=== PATIENT | female | born 1965 | race Caucasian/White ===

== ENCOUNTER 2024-05-06 09:29 | Emergency (ER) | payer SELFPAY ==
--- NOTE | ~2024-05-06 | CT_ITS ---
EXAMINATION: CT abdomen pelvis wo con DATE: 05/06/2024 10:17 INDICATION: Left lower quadrant pain TECHNIQUE: Computed tomography (CT) of the abdomen and pelvis was performed without intravenous contr ast. The dose-length product was 249.22 mGy-cm. Automated exposure control and iterative reconstructi on technique were employed. COMPARISON: No prior studies for comparison. FINDINGS: Lung bases unremarkable. Heart size normal. Small pericardial effusion. No significant pleu ral effusion. The liver, spleen, pancreas, adrenal glands and kidneys are unremarkable. No abnormal p elvic masses or fluid collections. There is a small fat-containing umbilical hernia. Colonic divertic ulosis without evidence for diverticulitis. No abnormal pelvic masses or fluid collections. There is atherosclerosis of the aorta without aneurysm. Gallbladder is present. No lymphadenopathy. No abnorma l pelvic masses. No focal lytic or blastic lesions. IMPRESSION: 1. No acute abdominal abnormality. Reviewed, dictated and finalized at location B.
[2024-05-06 09:30] VITALS: BP 184/98; PULSE 116; RESP 20; TEMP 36.7; O2SAT 97
--- NOTE | 2024-05-06 09:35 | ED.ABDPAIN ---
HPI - Abdominal Pain General Chief Complaint: Abdominal Pain Stated Complaint: abdominal pain Time Seen by Provider: 05/06/24 09:34 Source: patient Mode of arrival: ambulatory Limitations: no limitations History of Present Illness HPI narrative: Patient is a 58-year-old female with left lower quadrant and mid abdomen pain for the past 4 days. She has associated nausea vomiting and diarrhea. Diarrhea has been 1 week. She said she had a fever of 102 at home. MD elicited complaint: abdominal pain Pertinent past history: other ( None) Onset (ago): day(s) (4) Pain Consistency: constant Location: LLQ Severity: moderate Pain scale (0-10): 8 Quality: sharp Radiation: none Migration to: no migration Exacerbating factors: nothing Relieving factors: nothing Context: confirms other ( none) Associated symptoms: nausea, vomiting, diarrhea and fever Related Data Patient : No Allergies Allergy/AdvReac Type Severity Reaction Status Date / Time No Known Allergies Allergy Verified 05/06/24 09:34 Review of Systems Review of Systems: All systems reviewed & are unremarkable except as noted in HPI and below Constitutional: Constitutional: Reports no additional constitutional complaints Eyes: Eyes: Reports no additional eye complaints ENT: Reports system reviewed and no additional complaints, except as documented Cardiovascular: Cardiovascular: Reports no additional cardiovascular complaints Respiratory: Respiratory: Reports no additional respiratory complaints Gastrointestinal: Gastrointestinal: Reports no additional gastrointestinal complaints Genitourinary: Genitourinary: Reports no additional female genitourinary complaints Musculoskeletal: Musculoskeletal: Reports no additional musculoskeletal complaints Integumentary/Breasts: Skin/Breast: Reports system reviewed and no additional complaints, except as docu Neurologic: Reports system reviewed and no additional complaints, except as documented Psychiatric: Psychiatric: Reports no additional psychiatric complaints Endocrine: Endocrine: Reports no additional endocrine complaints Hematologic/Lymphatic: Hematologic/Lymphatic: Reports no additional hematologic/lymphatic complaints Allergic/Immunologic: Allergic/Immunologic: Reports no additional allergic/immunologic complaints Exam Const: General: ill appearing Nutritional Appearance: well nourished Orientation/consciousness: patient oriented x3 Limitations: no limitations HENMT: Head: normal to inspection Ears: external ears normal Face/Nose/Sinus: Normal external nose present Eyes: Conjunctivae: conjunctivae normal Pupils: Equal, round and reactive pupils present EOM: EOMs intact bilaterally Neck: Neck: normal visual inspection Chest: Chest palpation & inspection: normal inspection of the chest Resp: Effort & Inspection: normal respiratory effort and not labored Auscultation: clear to auscultation bilaterally and no crackles Cardio: Rate: regular rate Rhythm: regular rhythm Heart sounds: no murmurs GI: Inspection: non-distended GI Palp: Yes Soft to palpation, Yes Tenderness to palpation present (GI) ( left lower quadrant and suprapubic region), Yes Guarding due to palpation present (GI), No Rigid due to palpation, No Hernia present, No Palpable mass present and Yes Rebound tenderness present Auscultation: bowels sounds not normal and Hypoactive bowel sounds present : General: Yes bladder normal to palpation Back/Spine/Pelvis: Back: no CVA tenderness Skin: General skin exam: normal color Rashes: no rashes Wounds: no wounds Neuro: General: patient oriented x3 Cranial nerves: Yes Nystagmus not present Speech: normal speech Gait exam (Neuro): Normal gait present Extrem: General: normal to inspection Psych: Mental Status: mental status grossly normal Affect: normal affect Attitude: cooperative Course Vital Signs Vital signs: Vital Signs Temperature 36.7 C 05/06/24 09:30 Pu
[2024-05-06] MEDS: ONDANSETRON INJ 4 MG/2 ML VIAL IV PUSH (09:59)
[2024-05-06] MEDS: MORPHINE SULFATE (*CRX) 2 MG/ML INJ IV PUSH (10:06)
[2024-05-06 10:12] LABS: Basophils Absolute Auto 0.06 K/mm3 (0.00-0.10); Basophils Percent Auto 0.6 % (0.0-1.0); Eosinophils Absolute Auto 0.11 K/mm3 (0.02-0.50); Eosinophils Percent Auto 1.1 % (1.0-6.0); Hematocrit 35.4 % (35.0-49.0); Hemoglobin 10.9 g/dL (12.0-15.0); Immature Granulocyte Absolute 0.05 K/mm3 (0.00-0.00); Immature Granulocyte Percent A 0.5 % (0.0-0.0); Lymphocytes Absolute Auto 1.69 K/mm3 (1.10-4.50); Lymphocytes Percent Auto 16.3 % (18.0-42.0); Mean Corpuscular HGB Conc 30.8 g/dL (32-36); Mean Corpuscular Hemoglobin 23.3 pg (27.0-31.0); Mean Corpuscular Volume 75.8 fL (78.0-102.0); Mean Platelet Volume 9.5 fl (9.2-11.8); Monocytes Absolute Auto 1.01 K/mm3 (0.10-0.90); Monocytes Percent Auto 9.7 % (2.0-11.0); Neutrophils Absolute Auto 7.48 K/mm3 (1.70-7.20); Neutrophils Percent Auto 71.8 % (50.0-70.0); Platelet Count Result 270 K/mm3 (150-420); Red Blood Count 4.67 M/mm3 (4.20-5.40); Red Cell Distribution Width 18.1 % (11.6-14.4); White Blood Count 10.4 K/mm3 (4.8-10.8)
[2024-05-06 10:12] LABS: Add Urine Microscopic? YES; Appearance Urine Cloudy (Clear); Bilirubin Urine 2+ (Negative); Blood Urine Negative (Negative); Color Urine Yellow (Yellow); Glucose Urine UA Negative (Negative); Ketones Urine 1+ (Negative); Leukocyte Esterase Ur Trace LEU/UL (Negative); Nitrate Urine Negative (Negative); Protein Urine 2+ (Negative); Specific Grav Ur >= 1.030 (1.010-1.020)
[2024-05-06] MEDS: SODIUM CHLORIDE 0.9% IV 1,000 ML 999 ML IV CONT (10:14)
[2024-05-06 10:21] LABS: Bacteria Urine 1+ /hpf; RBC Urine 0-2 /hpf (0-2); Squamous Epithelial Cell Urine Moderate /hpf (Few)
[2024-05-06 10:30] LABS: Partial Thromboplastin Time 31.6 Sec (23.9-30.70)
[2024-05-06 10:32] LABS: Alanine Aminotransferase 17 U/L (14-59); Albumin Level 2.7 g/dL (3.4-5.0); Alkaline Phosphatase 64 U/L (46-116); Anion Gap 14 mmol/L (4-12); Aspartate Amino Transferase 11 U/L (15-37); Bilirubin,Total 0.5 mg/dL (0.00-1.00); Blood Urea Nitrogen 18 mg/dL (7-18); Calcium 8.8 mg/dL (8.5-10.1); Carbon Dioxide 21 mmol/L (21-32); Chloride 100 mmol/L (98-108); Estimated CRCL calculation 37 ml/min; Estimated Glomerular Filt Rate 42; Glucose 158 mg/dL (70-99); Lipase 19 U/L (16-77); Osmolality Calculated 284 mOsm/kg (285-295); Potassium 3.9 mmol/L (3.5-5.1); Sodium 135 mmol/L (136-145); Total Protein 7.2 g/dL (6.4-8.2)
[2024-05-06 10:53] VITALS: BP 133/80; PULSE 85; RESP 18; O2SAT 97
[2024-05-06 11:11] VITALS: BP 139/93; PULSE 103; RESP 20; TEMP 37.1; O2SAT 99
--- NOTE | 2024-05-06 11:19 | PC.NURSE ---
Pt given d/ c instructions and ERP Dr Castaneda in to discuss CT findings and dx of UTI. Pt stating she still isn't feeling the best and that her lower abd has some pain. instructed by ERP about Rx for antibiotic for UTI. ERP sent Rx to pts pharmacy for pickup and pt instructed to take as soon as she gets it filled, Instructed on diet, rest and fluids and need for f/u care or return to ER if no improvement. Pt and spouse stated understanding.
== END 2024-05-06 11:18 | disposition home or self-care (01) ==
PROVIDERS: Emergency Provider Emergency Medicine
DX: N30.00 Acute cystitis without hematuria (principal)
CPT/HCPCS: 36415; 74176; 80053; 81001; 83690; 85025; 85610; 85730; 96361; 96374; 96375; 99284; J2270; J2405; J7030

== ENCOUNTER 2024-11-16 20:26 | Observation (INO) | payer OTHER, SELFPAY ==
[2024-11-16] VITALS (10 sets, daily range): BP systolic 137–146; BP diastolic 83–86; PULSE 95–118; RESP 14–21; TEMP 37.6; O2SAT 87–95
--- NOTE | ~2024-11-16 | CT_ITS ---
EXAM: CTA chest PE protocol - 11/17/2024 07:14 CDT History: 59 years old Female with CHEST PAIN. R/O PE. TECHNIQUE: CTA of the chest with contrast, according to pulmonary embolism protocol. Reformatted cor onal, sagittal, and 3-D MIP images were obtained. 100 cc of Optiray 350 were used for the study. Auto matic exposure control was used for this study. COMPARISON: 11/16/2024 FINDINGS: EXAM QUALITY: Adequate visualization of the pulmonary arteries to the lobar level. PULMONARY ARTERIAL VASCULATURE: Large filling defect in the left inferior lobar pulmonary artery comp atible with acute pulmonary embolism. VISUALIZED LOWER NECK: Thyroid gland appears normal. No supraclavicular lymphadenopathy. AIRWAYS: Patent centrally. LUNGS and PLEURA: Unchanged 2.3 x 1.7 cm cavitary lesion in the left apical lung. No focal consolidat ion or ground glass opacity.No pleural effusion. MEDIASTINUM and CORIN: Prominent subcarinal lymph node is again seen. Fluid-filled esophagus. HEART AND PERICARDIUM: Mild right heart strain. No pericardial effusion. VASCULATURE: Thoracic aorta and pulmonary arteries are normal in caliber. CHEST WALL: No supraclavicular or axillary lymphadenopathy. MUSCULOSKELETAL: Multilevel degenerative changes of the visualized spine. No suspicious osseous lesio ns. UPPER ABDOMEN: Small hiatal hernia. IMPRESSION: 1. Acute pulmonary embolism in the left inferior lobar pulmonary artery along with right heart strai n. 2. Fluid-filled esophagus. Aspiration precautions are recommended. 3. Cavitary lesion in the left apical lung. Short interval follow-up CT chest is recommended in 3 mo nths. These findings were communicated to Tanner Deleon MD by Dr. Jeane Huddleston, on 11/17/2024 07:46 CDT at w ho expressed understanding. Reviewed, dictated and finalized at location A. IMPRESSION: 1. Acute pulmonary embolism in the left inferior lobar pulmonary artery along with right heart strain. 2. Fluid-filled esophagus. Aspiration precautions are recommended. 3. Cavitary lesion in the left apical lung. Short interval follow-up CT chest is recommended in 3 months. These findings were communicated to Tanner Deleon MD by Dr. Jeane Huddleston, on 07/2025 07:46 CDT at who expressed understanding.
--- NOTE | ~2024-11-16 | CT_ITS ---
CT chest abdomen pelvis w con Ordering provider: Tanner Deleon MD History: 59 years Female with . left chest pain, left abdominal pain left flank pain X 4 HRS . Comparison: None. Technique: CT chest with IV contrast. CT abdomen and pelvis CT abdomen and pelvis with IV and with or al contrast. Radiation reduction technique utilized.The dose-length product was 741.03 mGy-cm. 100 mL Omnipaque 35 0 was given IV. FINDINGS: CHEST: --VISUALIZED THORACIC INLET: Normal. --MEDIASTINUM: Aorta/coronary arteries: Mild atheromatous disease. Heart/other: The heart is not enlarged. Trace of pericardial effusion. Lymph nodes: No mediastinal or hilar adenopathy. Subcarinal lymph node measuring 1.2 cm is noted. --LUNGS: Cavitary lesion is seen in the left apical area which measure 2.3 x 1.7 cm. Septations seen in this lesion. Left basilar atelectasis with minimal effusion. No pulmonary nodules or masses. No pn eumothorax. --MUSCULOSKELETAL: Soft tissues: The superficial soft tissues are normal. Bones: Age appropriate degenerative changes of the spine. No suspicious bony lytic or sclerotic lesio ns. ABDOMEN/PELVIS: --MUSCULOSKELETAL: Bones: Age appropriate degenerative changes of the spine. No suspicious bony lytic or sclerotic lesio ns. Sclerotic area seen in the right body and pedicle of L2. Sclerotic area also seen in the right si xth rib. Superficial soft tissues: Small fat-containing umbilical hernia. Otherwise, The superficial soft tiss ues are normal. --UPPER ABDOMINAL ORGANS: Liver: Normal. Gallbladder: Normal. Spleen: Normal. Stomach/duodenum: Sliding hiatus hernia. Pancreas: Normal. Adrenals: Normal. Kidneys: Normal. --PELVIC ORGANS: The bladder shows slightly thickened wall. No bladder stones. --BOWEL AND MESENTERY: Colon: No evidence of diverticulitis. Slightly thickened wall of the sigmoid colon which may indicate colitis. Normal appendix. Small Bowel: Normal. No obstruction. Peritoneum/mesentery: No free air or free fluid. No mesenteric lymphadenopathy. --RETROPERITONEUM: Mild atheromatous disease of the abdominal aorta. Left retroaortic renal vein is noted. No retroperitoneal lymphadenopathy. IMPRESSION: CHEST: 1. Cavitary lesion in the left apical area. Follow-up in 3 months is advised. 2. Left basilar atelectasis with minimal effusion. ABDOMEN/PELVIS: 1. No evidence of appendicitis, diverticulitis or intestinal obstruction. 2. Slightly thickened wall of the sigmoid colon which may indicate colitis. Clinical correlation and follow-up advised. 3. Sliding hiatus hernia. Reviewed, dictated and finalized at location A. IMPRESSION: CHEST: 1. Cavitary lesion in the left apical area. Follow-up in 3 months is advised. 2. Left basilar atelectasis with minimal effusion. ABDOMEN/PELVIS: 1. No evidence of appendicitis, diverticulitis or intestinal obstruction. 2. Slightly thickened wall of the sigmoid colon which may indicate colitis. Cl inical correlation and follow-up advised. 3. Sliding hiatus hernia.
--- NOTE | ~2024-11-16 | XR_ITS ---
EXAM/ PROCEDURE: XR shoulder LT min 2V - 11/17/2024 08:30 CDT HISTORY: 59 years old Female with Lt. shoulder pain, Limited ROM COMPARISON: None available TECHNIQUE: Two view(s) FINDINGS/ IMPRESSION: There are no fractures or dislocations.Joint spaces are within normal limits Reviewed, dictated and finalized at location A.
--- NOTE | ~2024-11-16 | CT_ITS ---
EXAM: CT brain wo con - 11/17/2024 08:30 CDT History: 59 years old Female with AMS COMPARISON: None available. PROCEDURE: CT of the head without contrast. Axial, sagittal and coronal reformatted planes were allan luated. Automatic exposure control was used for this study. FINDINGS: BRAIN PARENCHYMA: No acute hemorrhage. No mass effect or herniation. Nesbitt-white matter differentiatio n is maintained. Normal appearance of cortex. Intravenous contrast from prior examination is seen in the intracranial vessels. VENTRICLES/ EXTRA-AXIAL SPACES: No hydrocephalus or extra-axial fluid collection. EXTRACRANIAL STRUCTURES: Partial opacification of right mastoid air cells. Remaining visualized paran bradford sinuses and mastoid air cells are clear. No calvarial fracture seen. IMPRESSION: 1. No evidence for acute intracranial hemorrhage or calvarial fracture. 2. Partial opacification of right mastoid air cells. Correlate clinically to rule out acute mastoidi tis. Reviewed, dictated and finalized at location A. IMPRESSION: 1. No evidence for acute intracranial hemorrhage or calvarial fracture. 2. Partial opacification of right mastoid air cells. Correlate clinically to r ule out acute mastoiditis.
--- OUTSIDE RECORDS SUMMARY | 2024-11-16 20:31 | XMS_ITS | Clinical Summary ---
Author Organization [facility] Address [address] [place] [address] Care Team Providers Care Hospice Nurse Practitioner Name Role Phone Johnny Sapp MD Primary Care Provider [phone] Allergies No known active allergies Medications acetaminophen (TYLENOL) 500 MG tablet Take 2 tablets (1,000 mg total) by mouth every 6 (six) hours as needed for Pain or Fever. 50 tablet 9 Active traMADol 50 MG tablet Take 1 tablet (50 mg total) by mouth every 6 (six) hours as needed for Pain. 20 tablet 9 Active amLODIPine 10 MG tablet Take 1 tablet (10 mg total) by mouth in the evening if your blood pressure is greater than 150mmHg systolic 30 tablet 1 Active lisinopril 10 MG tablet Please take 1 tablet (10 mg) in the morning by mouth daily 30 tablet 1 Active Acetaminophen (TYLENOL ARTHRITIS PAIN OR) Take 2 tablets by mouth 2 (two) times daily. Active ibuprofen (MOTRIN) 200 MG tablet Take 1 tablet (200 mg total) by mouth 2 (two) times daily. Active cyclobenzaprine (FLEXERIL) 10 MG tablet Take 1 tablet (10 mg total) by mouth nightly. Active zinc sulfate (ZINCATE) 220 MG capsule Take 1 capsule (50 mg of elemental zinc total) by mouth daily. Active magnesium oxide (MAG-OX) 250 MG tablet Take 1 tablet (250 mg total) by mouth daily. Active potassium chloride CR (KLOR-CON) 8 MEQ tablet Take 1 tablet (8 mEq total) by mouth daily. Patient buys otc unsure of dose. Active Vitamin D3 (VITAMIN D) 50 mcg tablet Take 1 tablet (50 mcg total) by mouth daily. Active Apple Cider Vinegar 188 MG Cap Take 1 capsule by mouth daily. Active Probiotic Product (PROBIOTIC ACIDOPHILUS) Chew Tab Chew 1 chewable tablet by mouth daily. Takes 1 gummy daily Active omeprazole EC (PRILOSEC OTC) 20 MG tablet Take 1 tablet (20 mg total) by mouth daily. Pt unsure of dose but takes it from over the counter Active Active Problems Problem Noted Date Diagnosed Date Otitis media 08/07/2023 Social History Tobacco Use Types Packs/Day Years Used Date Smoking Tobacco: Never Smokeless Tobacco: Never Alcohol Use Standard Drinks/Week Comments No 0 (1 standard drink = 0.6 oz pur e alcohol) [facility] Utilities Answer Date Recorded In the past 12 months has [facility] [employer], [employer], or [employer] threatened to shut off services in your home? Patient declined 08/11/2023 Humiliation, Afraid, Rape, and Kick questionnair e Answer Date Recorded Within the last year, have y ou been afraid of your partner or ex-partner? Patient declined 08/11/2023 Within the last year, have y ou been humiliated or emotionally abused in other ways by your partner or ex-partner? Patient declined 08/11/2023 Within the last year, have y ou been kicked, hit, slapped, or otherwise physically hurt by your partner or ex-partner? Patient declined 08/11/2023 Within the last year, have y ou been raped or forced to have any kind of sexual activity by your partner or ex-partner? Patient declined 08/11/2023 AUDIT-C Answer Date Recorded Frequency of Alcohol Consumption Never 04/03/2019 Average Number of Drinks Not on file 019 Frequency of Binge Drinking Not on file 03/09 Overall Financial Resource Strain (CARDIA) Answe r Date Recorded How hard is it for you to pa y for the very basics like food, housing, medical care, and heating? Patient declined 08/11/2023 Hunger Vital Sign Answer Date Recorded Within the past 12 months, y ou worried that your food would run out before you got the money to buy more. Patient declined Within the past 12 months, t he food you bought just didn't last and you didn't have money to get more. Patient declined 11/2023 PRAPARE - Transportation Answer Date Re corded In the past 12 months, has l ack of transportation kept you from medical appointments or from getting medications? Patient declined 08/11/2023 In the past 12 months, has l ack of transportation kept you from meetings, work, or from getting things needed for daily living? Patient declined 08/11/2023 Housing Stability Vital Sign Answer Sharan e Recorded In the last 12 months, was t here a time when you were not able to pay the mortgage or rent on time? Patient declined 08/11/19 24 In the last 12 months, how many places have you lived? 1 08/11/2023 In the last 12 months, was t here a time when you did not have a steady place to sleep or slept in a retirement (including now)? 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 Pulse 83 08/12/2023 8:04 AM [employer]ER Temperature 37.1 C (98.8 F) 08/12/2023 8:04 AM K[employer] AS[employer]ER Respiratory Rate 16 08/12/2023 8:04 AM K[employer] ASSEM[employer]ER Oxygen Saturation 97% 08/12/2023 8:0 4 AM K[employer] ASSEM[employer]ER Inhaled Oxygen Concentration - - Weight 64.5 kg (142 lb 4.8 oz) 08/11/2023 5:00 AM K[employer]EN FOOD ASSEMBLER Height 154.9 cm (5' 0.98 ) 08/07/2023 3 :29 AM K[employer]EN FOOD ASSEMBLER Body Mass Index 26.9 08/07/2023 3:29 AM K[employer]EN [employer] ASSEMBLER Plan of Treatment Health Maintenance Due Date Last Done Comments Cervical Cancer Screening Pa p Smear (Age 30 to 64) Every 3 Years 1967 Colorectal Cancer Screening Colonoscopy (10 Years) 1967 Annual Physical 1970 Hepatitis C 1985 DTaP, Tdap and Td Vaccines ( 1 - Tdap) 1986 Hepatitis B Vaccines (1 of 3 - 19+ 3-dose series) 1986 Cervical Cancer Screening Pa p with HPV Testing (Age 30 to 64) Every 5 Years 1997 Cervical Cancer Screening with HPV 1997 Mammogram Screening 2007 Zoster Vaccines (1 of 2) 2017 COVID-19 Vaccine (1 - 2023-2 5 season) 2024 Pneumococcal Vaccine: Pediat rics (0 to 5 Years) and At-Risk Patients (6 to 64 Years) Aged Out 06/17/2015 No longer eligi ble based on patient's age to complete this topic Meningococcal B Vaccine Aged Out No l onger eligible based on patient's age to complete this topic Meningococcal Vaccine Aged Out No patria adamaris eligible based on patient's age to complete this topic RSV Immunizations Under 20 Months Aged Out No longer eligible based on patient's age to complete this topic Insurance [address] Advance Directives * Full Code (Latest Code Status on File) Date Activated Date Inactivated Comments 08/07/2023 2:01 AM 08/12/2023 4:04 PM Care Teams Hospice Nurse Practitioner Relationship Specialty Start Date End Date Johnny Sapp MD [address] [place] [address] PCP - General FAMILY PRACTICE 08/12/23
--- OUTSIDE RECORDS SUMMARY | 2024-11-16 20:31 | XMS_ITS | Encounter Summary ---
Author Organization [facility] Address [address] [place] [address] Care Team Providers Care Ordnance Equipment Worker Name Role Phone None, Provider Primary Care Provider Unavaila ble Johnny Sapp MD Primary Care Provider [phone] Encounter Details Date Type Department Care Team (Late st Contact Info) Description 10/22/2017 Abstract [facility] CONVERSION [address] [place] [address] , Generic Conversion, Social History Tobacco Use Types Packs/Day Years Used Date Smoking Tobacco: Never Assessed Comments Unknown Sex and Gender Information Value Date Recorded Sex Assigned at Not on file Legal Sex Female 4:54 PM CDT Gender Identity Not on file Sexual Orientation Not on file documented as of this encounter Plan of Treatment Not on file documented as of this encounter Visit Diagnoses Not on filedocumented in this encounter Care Teams Ordnance Equipment Worker Relationship Specialty Start Date End Date None, Provider, PCP - General 04/03/19 08/11/23 Johnny Sapp MD [address] [place] [id number] PCP - General FAMILY PRACTICE 08/12/23 documented as of this encounter
--- OUTSIDE RECORDS SUMMARY | 2024-11-16 20:31 | XMS_ITS | Encounter Summary ---
Author Organization [facility] Address [address] [place] [address] Care Team Providers Care Avid Editor Name Role Phone None, Provider Primary Care Provider Unavaila [facility] Johnny Sapp MD Primary Care Provider [phone] Encounter Details Date Type Department Care Team (Late st Contact Info) Description 08/27/2009 Abstract [facility] CONVERSION [address] [place] [address] , Generic Conversion, Social History Tobacco Use [...] on filedocumented in this encounter Care Teams Avid Editor Relationship Specialty Start Date End Date None, Provider, PCP - General 04/03/19 08/11/23 Johnny Sapp MD [address] [place] [id number] PCP - General FAMILY PRACTICE 08/12/23 documented as of this encounter
[2024-11-16 20:43] LABS: Glucose Point of Care 247 mg/dl (65-105)
--- NOTE | 2024-11-16 20:43 | ED_ITS ---
HPI - Abdominal Pain General Chief Complaint: Abdominal Pain Stated Complaint: abdominal pain Time Seen by Provider: 11/16/24 20:43 Source: patient and family Mode of arrival: ambulatory Limitations: clinical condition History of Present Illness HPI narrative: 59 years old white female came to the ED from home by ambulance with her and some was telling me that patient started having pain left chest left flank left back left abdomen to hour prior to arrival, the denied that the patient have any nausea, vomiting, diarrhea, constipation, fever or chills. History of CVA with right hemiplegia and aphasia May 2024. History of diabetes, hypertension, hyperlipidemia, COPD, patient does not smoke or drink, uses marijuana occasionally. No history of abdominal surgery. Related Data Home Medications ?Medication ?Instructions ?Recorded ?Confirmed ?Last Taken ?Type atorvastatin 80 mg tablet 80 mg PO DAILY 11/16/24 11/16/24 Unknown History baclofen 10 mg tablet 10 mg PO DAILY 11/16/24 11/16/24 Unknown History blood-glucose meter (OneTouch 11/16/24 11/16/24 Unknown History Verio Flex Meter) losartan 100 mg tablet 100 mg PO DAILY 11/16/24 11/16/24 Unknown History metformin 500 mg tablet 500 mg PO DAILY 11/16/24 11/16/24 Unknown History prednisone 10 mg tablet 10 mg PO DAILY 11/16/24 11/16/24 Unknown History umeclidinium 62.5 mcg-vilanterol 1 inh inhalation DAILY 11/16/24 11/16/24 Unknown History 25 mcg/actuation powdr for inhalation (Anoro Ellipta) Allergies Allergy/AdvReac Type Severity Reaction Status Date / Time No Known Allergies Allergy Verified 11/16/24 20:39 Review of Systems 2 Review of Systems: All systems reviewed & are unremarkable except as noted in HPI and below Exam 2 Narrative: General appearance: Well-developed, well-nourished , restless, looks in pain, aphasic, unable to tell me any details what is going on, and son at the bedside. Skin: Normal color Head: Normocephalic, nontraumatic Eyes: Clear conjunctiva ENT: Oropharynx normal, ears normal, nose normal Neck: Supple, nontender Chest and respiratory: Airway patent, no respiratory distress, no accessory muscle use, diffuse left chest tenderness, no bruises, no rash Heart: Regular rate/rhythm Abdomen: Diffuse tenderness left upper quadrant, left flank, no bruises, no rash difficult to evaluate patient is not cooperative Musculoskeletal: right hemiplegia Neurologic: Alert and oriented , right hemiplegia, aphasia Course Vital Signs Vital signs: Vital Signs Temperature 37.6 C H 11/16/24 20:32 Pulse Rate 109 H 11/16/24 20:32 Respiratory Rate 18 11/16/24 20:32 Blood Pressure 146/83 H 11/16/24 20:32 Pulse Oximetry 95 11/16/24 20:32 Oxygen Delivery Room Air 11/16/24 20:32 Temperature 37.6 C H 11/16/24 20:32 Pulse Rate 114 H 11/16/24 23:48 Respiratory Rate 14 11/16/24 23:48 Blood Pressure 137/86 11/16/24 23:48 Pulse Oximetry 94 11/16/24 23:48 Oxygen Delivery Room Air 11/16/24 20:32 Oxygen Flow Rate 2 11/16/24 23:48 MDM - Abdominal Pain MDM Narrative Medical decision making narrative: patient came from home with her family with probably left chest pain left back pain left flank pain left abdominal pain. Vital signs showing heart rate of 109, temperature 37.6? Physical examination showing restless patient, in pain, difficult to localize with that she hurt, probably chest, back, abdomen. Differential diagnosis include musculoskeletal, pulmonary embolism, pneumonia, diverticulitis, colitis, urinary tract infection, kidney stone, constipation , major depression secondary to stroke Blood workup today includes CBC, CMP, troponin,, blood culture, lactic acid showed WBC 12.9, CREATININE 1.1, GLUCOSE 283, LACTIC ACID 2.1, MAGNESIUM 1.5, C- REACTIVE PROTEIN 5.7, Respiratory panel showed Negative for COVID flu and RSV CT chest, abdomen and pelvis with IV contrast showed cavitary lesion in the left apical area. The family are aware of that lesion and has been under investigation. , possible colitis, sliding hiatal hernia. Urinalysis came back positive for nitrate. Patient pain at the left side of the chest left back left abdomen could be secondary to muscle strain/ sprain. secondary to compensation of right hemiplegia. Colitis is a possibility, urinary tract infection is a possibility. Patient pain is severe does not match with colitis or urinary tract infection, depression and anxiety could be another factor making patient pain worse than normal. Patient will be admitted to hospital, observation, start on Zosyn for colitis and urinary tract infection. Differential Diagnosis Differential diagnosis: Likely other ( As above) Lab Data Attestation: I reviewed the patient's lab results. 11/16/24 21:12 11/16/24 21:12 Labs: Lab Results 11/16/24 11/16/24 11/16/24 Range/Units 20:41 21:12 21:16 WBC 12.9 H (4.8-10.8) K/mm3 RBC 5.38 (4.20-5.40) M/mm3 Hgb 12.5 (12.0-15.0) g/dL Hct 41.8 (35.0-49.0) % MCV 77.7 L (78.0-102.0) fL MCH 23.2 L (27.0-31.0) pg MCHC 29.9 L (32-36) g/dL RDW 18.5 H (11.6-14.4) % Plt Count 263 (150-420) K/mm3 MPV 9.5 (9.2-11.8) fl Immature Gran % (Auto) 2.1 H (0.0-0.0) % Neut % (Auto) 63.8 (50.0-70.0) % Lymph % (Auto) 25.4 (18.0-42.0) % Moca % (Auto) 7.3 (2.0-11.0) % Eos % (Auto) 0.9 L (1.0-6.0) % Baso % (Auto) 0.5 (0.0-1.0) % Lymph # (Auto) 3.29 (1.10-4.50) K/mm3 Moca # (Auto) 0.95 H (0.10-0.90) K/mm3 Eos # (Auto) 0.11 (0.02-0.50) K/mm3 Baso # (Auto) 0.07 (0.00-0.10) K/mm3 Abs Immat Gran (auto) 0.27 H (0.00-0.00) K/mm3 Absolute Neuts (auto) 8.24 H (1.70-7.20) K/mm3 Absolute Nucleated RBC 0.00 (0.00-0.00) K/mm3 Nucleated RBC % 0.0 (0-0.0) % PT 10.2 (9.50-12.1) Seconds INR 0.9 APTT 25.1 (23.9-30.70) Sec Sodium 136 (136-145) mmol/L Potassium 4.2 (3.5-5.1) mmol/L Chloride 100 (98-108) mmol/L Carbon Dioxide 23 (21-32) mmol/L Anion Gap 13 H (4-12) mmol/L BUN 14 (7-18) mg/dL Creatinine 1.11 H (0.55-1.02) mg/dL Estim Creat Clear Calc 45 ml/min Estimated GFR 51 L (59 - ) Glucose 283 H (70-99) mg/dL POC Capillary Glucose 247 H (65-105) mg/dl Calculated Osmolality 292 (285-295) mOsm/kg Lactic Acid 2.1 H (0.4-2.0) mmol/L Calcium 8.8 (8.5-10.1) mg/dL Magnesium 1.5 L (1.8-2.4) mg/dL Total Bilirubin 0.4 (0.00-1.00) mg/dL AST 13 L (15-37) U/L ALT 23 (14-59) U/L Alkaline Phosphatase 78 (46-116) U/L Troponin I 5.7 (0.00-60.4) ng/L C-Reactive Protein 5.7 H (0.0-0.9) mg/dL Total Protein 7.0 (6.4-8.2) g/dL Albumin 2.9 L (3.4-5.0) g/dL Lipase 50 (16-77) U/L Urine Color (Yellow) Urine Appearance (Clear) Urine pH (5.0-8.0) Ur Specific Montague (1.010-1.020) Urine Protein (Negative) Urine Glucose (UA) (Negative) Urine Ketones (Negative) Ur Blood (Man) (Negative) Urine Nitrate (Negative) Urine Bilirubin (Negative) Urine Urobilinogen (0.2-1.0) mg/dL Leukocyte Esterase Rfl (Negative) OLGA/UL Influenza A (RT-PCR) Negative (Negative) Influenza B (RT-PCR) Negative (Negative) RSV (RT-PCR) Negative (Negative) SARS-CoV-2 RNA (RT-PCR) Negative (Negative) 11/16/24 11/16/24 Range/Units 23:04 23:30 WBC (4.8-10.8) K/mm3 RBC (4.20-5.40) M/mm3 Hgb (12.0-15.0) g/dL Hct (35.0-49.0) % MCV (78.0-102.0) fL MCH (27.0-31.0) pg MCHC (32-36) g/dL RDW (11.6-14.4) % Plt Count (150-420) K/mm3 MPV (9.2-11.8) fl Immature Gran % (Auto) (0.0-0.0) % Neut % (Auto) (50.0-70.0) % Lymph % (Auto) (18.0-42.0) % Moca % (Auto) (2.0-11.0) % Eos % (Auto) (1.0-6.0) % Baso % (Auto) (0.0-1.0) % Lymph # (Auto) (1.10-4.50) K/mm3 Moca # (Auto) (0.10-0.90) K/mm3 Eos # (Auto) (0.02-0.50) K/mm3 Baso # (Auto) (0.00-0.10) K/mm3 Abs Immat Gran (auto) (0.00-0.00) K/mm3 Absolute Neuts (auto) (1.70-7.20) K/mm3 Absolute Nucleated RBC (0.00-0.00) K/mm3 Nucleated RBC % (0-0.0) % PT (9.50-12.1) Seconds INR APTT (23.9-30.70) Sec Sodium (136-145) mmol/L Potassium (3.5-5.1) mmol/L Chloride (98-108) mmol/L Carbon Dioxide (21-32) mmol/L Anion Gap (4-12) mmol/L BUN (7-18) mg/dL Creatinine (0.55-1.02) mg/dL Estim Creat Clear Calc ml/min Estimated GFR (59 - ) Glucose (70-99) mg/dL POC Capillary Glucose (65-105) mg/dl Calculated Osmolality (285-295) mOsm/kg Lactic Acid 1.4 (0.4-2.0) mmol/L Calcium (8.5-10.1) mg/dL Magnesium (1.8-2.4) mg/dL Total Bilirubin (0.00-1.00) mg/dL AST (15-37) U/L ALT (14-59) U/L Alkaline Phosphatase (46-116) U/L Troponin I (0.00-60.4) ng/L C-Reactive Protein (0.0-0.9) mg/dL Total Protein (6.4-8.2) g/dL Albumin (3.4-5.0) g/dL Lipase (16-77) U/L Urine Color Yellow (Yellow) Urine Appearance Clear (Clear) Urine pH 5.0 (5.0-8.0) Ur Specific Montague <= 1.005 L (1.010-1.020) Urine Protein Negative (Negative) Urine Glucose (UA) 1+ H (Negative) Urine Ketones Negative (Negative) Ur Blood (Man) Negative (Negative) Urine Nitrate Positive H (Negative) Urine Bilirubin Negative (Negative) Urine Urobilinogen 0.2 (0.2-1.0) mg/dL Leukocyte Esterase Rfl Negative (Negative) OLGA/UL Influenza A (RT-PCR) (Negative) Influenza B (RT-PCR) (Negative) RSV (RT-PCR) (Negative) SARS-CoV-2 RNA (RT-PCR) (Negative) Imaging Data Radiologist's impression: ITS Impressions Chest/Abdomen/Pelvis CT 11/16/24 22:31 IMPRESSION: CHEST: 1. Cavitary lesion in the left apical area. Follow-up in 3 months is advised. 2. Left basilar atelectasis with minimal effusion. ABDOMEN/PELVIS: 1. No evidence of appendicitis, diverticulitis or intestinal obstruction. 2. Slightly thickened wall of the sigmoid colon which may indicate colitis. Clinical correlation and follow-up advised. 3. Sliding hiatus hernia. ECG Data EKG #1: Attestation: I personally reviewed and interpreted this ECG as follows: ECG completion date: 11/17/24 Interpretation: normal sinus rhythm at 96 beats per minute, low QRS voltage precordial leads, nonspecific ST T-wave abnormalities, abnormal EKG Critical Care Time Critical Care Time Critical Care Time: No Discharge Plan Discharge Clinical Impression: Colitis, Urinary tract infection, Muscle pain, Depression Patient Disposition: Still a Patient Condition: Stable Patient Language: Australian Prescriptions: No Action metformin 500 mg tablet 500 mg PO DAILY atorvastatin 80 mg tablet 80 mg PO DAILY prednisone 10 mg tablet 10 mg PO DAILY (DME) blood-glucose meter [[employer] Verio Flex meter] Misc MISCELLANEOUS baclofen 10 mg tablet 10 mg PO DAILY losartan 100 mg tablet 100 mg PO DAILY Anoro Ellipta 62.5-25 mcg/actuation blister with device 1 inh INHALATION DAILY Follow-up/Referrals: UNKNOWN,DOCTOR [Non-Staff] -
--- OUTSIDE RECORDS SUMMARY | 2024-11-16 21:10 | XMS_ITS | Clinical Summary ---
Author Organization [facility] Address [address] [place] [address] Care Team Providers Care Human Services Worker Name Role Phone Johnny Sapp MD Primary Care Provider [phone] Allergies No known active allergies Medications acetaminophen [...] drink = 0.6 oz pur e alcohol) [facility] Utilities Answer Date Recorded In the past 12 months has [facility] [employer], [employer], or water [employer] threatened to shut off services in your [...] place to sleep or slept in a fdc (including now)? Patient declined 08/11/2023 Comments No Sex and Gender Information Value Date Recorded Sex Assigned at Not on file Legal Sex Female 4:54 PM CDT Gender Identity Not on file Sexual Orientation Not on file Last Filed Vital Signs Vital Sign Reading Time Taken Comments Blood Pressure 153/93 08/12/2023 8:04 AM POLITICAL SCIENTIST RN nurse notified Pulse 83 08/12/2023 8:04 AM POLITICAL SCIENTIST Temperature 37.1 C (98.8 F) 08/12/2023 8:04 AM POLITICAL SCIENTIST Respiratory Rate 16 08/12/2023 8:04 AM POLITICAL SCIENTIST Oxygen Saturation 97% 08/12/2023 8:0 4 AM POLITICAL SCIENTIST Inhaled Oxygen Concentration - - Weight 64.5 kg (142 lb 4.8 oz) 08/11/2023 5:00 AM POLITICAL SCIENTIST Height 154.9 cm (5' 0.98 ) 08/07/2023 3 :29 AM POLITICAL SCIENTIST Body Mass Index 26.9 08/07/2023 3:29 AM POLITICAL SCIENTIST Plan of Treatment Health Maintenance Due Date [...] age to complete this topic Insurance [address] Advance Directives * Full Code (Latest Code Status on File) Date Activated Date Inactivated Comments 08/07/2023 2:01 AM 08/12/2023 4:04 PM Care Teams Human Services Worker Relationship Specialty Start Date End Date Johnny Sapp MD [address] [place] [address] PCP - General FAMILY PRACTICE 08/12/23
--- OUTSIDE RECORDS SUMMARY | 2024-11-16 21:10 | XMS_ITS | Encounter Summary ---
Author Organization [facility] Address [address] [place] [address] Care Team Providers Care Gas Welder Name Role Phone None, Provider Primary Care Provider [facility] Johnny Sapp MD Primary Care Provider [phone] Encounter Details Date Type Department Care Team (Late st Contact Info) Description 08/27/2009 Abstract [facility] CONVERSION [address] [place] [address] , Generic Conversion, Social History Tobacco Use [...] on filedocumented in this encounter Care Teams Gas Welder Relationship Specialty Start Date End Date None, Provider, PCP - General 04/03/19 08/11/23 Johnny Sapp MD [address] [place] [id number] PCP - General FAMILY PRACTICE 08/12/23 documented as of this encounter
--- OUTSIDE RECORDS SUMMARY | 2024-11-16 21:10 | XMS_ITS | Encounter Summary ---
Author Organization [facility] Address [address] [place] [address] Care Team Providers Care Drop Pit Worker Name Role Phone None, Provider Primary Care Provider Unavaila ble Johnny Sapp MD Primary Care Provider [phone] Encounter Details Date Type Department Care Team (Late st Contact Info) Description 10/22/2017 Abstract [facility] CONVERSION [address] [place] [address] , Generic Conversion, Social History Tobacco Use [...] on filedocumented in this encounter Care Teams Drop Pit Worker Relationship Specialty Start Date End Date None, Provider, PCP - General 04/03/19 08/11/23 Johnny Sapp MD [address] [place] [id number] PCP - General FAMILY PRACTICE 08/12/23 documented as of this encounter
[2024-11-16] MEDS: HYDROmorphone HCL INJ (*CRX) 2 MG/ML VIAL 0.5 MG IV PUSH ×3 (21:12→23:11)
[2024-11-16] MEDS: ONDANSETRON INJ 4 MG/2 ML VIAL IV PUSH (21:12)
[2024-11-16] MEDS: SODIUM CHLORIDE 0.9% IV 1,000 ML 999 ML IV CONT (21:13)
[2024-11-16 21:17] LABS: Basophils Absolute Auto 0.07 K/mm3 (0.00-0.10); Basophils Percent Auto 0.5 % (0.0-1.0); Eosinophils Absolute Auto 0.11 K/mm3 (0.02-0.50); Eosinophils Percent Auto 0.9 % (1.0-6.0); Hematocrit 41.8 % (35.0-49.0); Hemoglobin 12.5 g/dL (12.0-15.0); Immature Granulocyte Absolute 0.27 K/mm3 (0.00-0.00); Immature Granulocyte Percent A 2.1 % (0.0-0.0); Lymphocytes Absolute Auto 3.29 K/mm3 (1.10-4.50); Lymphocytes Percent Auto 25.4 % (18.0-42.0); Mean Corpuscular HGB Conc 29.9 g/dL (32-36); Mean Corpuscular Hemoglobin 23.2 pg (27.0-31.0); Mean Corpuscular Volume 77.7 fL (78.0-102.0); Mean Platelet Volume 9.5 fl (9.2-11.8); Monocytes Absolute Auto 0.95 K/mm3 (0.10-0.90); Monocytes Percent Auto 7.3 % (2.0-11.0); Neutrophils Absolute Auto 8.24 K/mm3 (1.70-7.20); Neutrophils Percent Auto 63.8 % (50.0-70.0); Platelet Count Result 263 K/mm3 (150-420); Red Blood Count 5.38 M/mm3 (4.20-5.40); Red Cell Distribution Width 18.5 % (11.6-14.4); White Blood Count 12.9 K/mm3 (4.8-10.8)
--- NOTE | 2024-11-16 21:23 | PC.NURSE ---
pt unable to urinate at this time
[2024-11-16 21:37] LABS: Lactic Acid Reflex 2.1 mmol/L (0.4-2.0)
[2024-11-16 21:38] LABS: INR 0.9; Partial Thromboplastin Time 25.1 Sec (23.9-30.70); Prothrombin Time 10.2 Seconds (9.50-12.1)
[2024-11-16 21:42] LABS: Alanine Aminotransferase 23 U/L (14-59); Albumin Level 2.9 g/dL (3.4-5.0); Alkaline Phosphatase 78 U/L (46-116); Anion Gap 13 mmol/L (4-12); Aspartate Amino Transferase 13 U/L (15-37); Bilirubin,Total 0.4 mg/dL (0.00-1.00); Blood Urea Nitrogen 14 mg/dL (7-18); Calcium 8.8 mg/dL (8.5-10.1); Carbon Dioxide 23 mmol/L (21-32); Chloride 100 mmol/L (98-108); Estimated CRCL calculation 45 ml/min; Estimated Glomerular Filt Rate 51; Glucose 283 mg/dL (70-99); Lipase 50 U/L (16-77); Osmolality Calculated 292 mOsm/kg (285-295); Potassium 4.2 mmol/L (3.5-5.1); Sodium 136 mmol/L (136-145)
[2024-11-16 21:45] LABS: CRP 5.7 mg/dL (0.0-0.9); Magnesium 1.5 mg/dL (1.8-2.4); Troponin I 5.7 ng/L (0.00-60.4)
[2024-11-16 21:58] LABS: Influenza A QL RT-PCR Negative (Negative); Influenza B QL RT-PCR Negative (Negative); RSV RNA, RT-PCR Negative (Negative); SARS-CoV-2 RNA PCR Negative (Negative)
[2024-11-16 23:14] LABS: Reflex Lactic Acid Yes or No Add Lactic
[2024-11-16 23:22] LABS: Add Urine Microscopic? YES; Appearance Urine Clear (Clear); Bilirubin Urine Negative (Negative); Blood Urine Negative (Negative); Color Urine Yellow (Yellow); Glucose Urine UA 1+ (Negative); Ketones Urine Negative (Negative); Leukocyte Esterase Ur Negative LEU/UL (Negative); Nitrate Urine Positive (Negative); Protein Urine Negative (Negative); Specific Grav Ur <= 1.005 (1.010-1.020); Urobilinogen Urine 0.2 mg/dL (0.2-1.0)
[2024-11-16] MEDS: PIPERACILLN/TAZ 3.375GM/NS50ML 3.375 GM/50 ML BAG IVPB (23:37)
[2024-11-16 23:54] LABS: Lactic Acid 1.4 mmol/L (0.4-2.0)
[2024-11-17] VITALS (8 sets, daily range): BP systolic 115–186; BP diastolic 68–111; PULSE 82–108; RESP 16–24; TEMP 36.3–36.5; O2SAT 91–96; BMI 23.8
--- NOTE | 2024-11-17 00:02 | ECG_ITS ---
Test Date: 2024-11-17 00:08:57 Measurements Intervals Foley Rate: 96 P: 44 IL: 153 QRS: 6 QRSD: 98 T: 22 QT: 334 QTc: 422 Interpretive Statements SINUS RHYTHM INCOMPLETE RIGHT BUNDLE BRANCH BLOCK LOW QRS VOLTAGE IN PRECORDIAL LEADS BORDERLINE ST-T WAVE ABNORMALITY- ANT/INF LEADS BASELINE ARTIFACT- I, II, III, AVR, AVL, AVF, V1-V6 BORDERLINE ECG No previous ECG available for comparison Electronically Signed On 11-17-2024 06:51:59 CDT by Lamont Dixon D.O.
--- NOTE | 2024-11-17 00:04 | PC.NURSE ---
Pt walks with cane with assistance and gait belt.
[2024-11-17] MEDS: SODIUM CHLORIDE 0.9% IV 1,000 ML 125 ML IV CONT ×2 (00:40→09:40)
--- NOTE | 2024-11-17 01:34 | ADMGEN ---
This patient, June Dueñas, was admitted to 2nd Floor Room 208-2. Patient/family oriented to hospital policies and general routines including ID bracelet, bed and alarms, visiting hours, pain management, procedures, bathroom and other care routines, personal items, smoking policy, room service/diet, and visiting hours. Information on how to activate the Rapid Response Team has been discussed. Patient/Family are encouraged to report perceived risks to care and to ask questions if they do not understand what they are told or what they should do.
[2024-11-17] MEDS: PIPERACILLN/TAZ 3.375GM/NS50ML 3.375 GM/50 ML BAG IVPB (05:57)
--- NOTE | 2024-11-17 06:05 | PC.NURSE ---
Pt sleeping when starting IV antibx, pt awakened and then started c/o severe pain to Lt side of her chest and rib cage area and stating I can't breathe . She is holding her Lt side ribs cage/breast area and states hard to take deep breath. Pt very anxious and states pain is worsening. stockfeed miller Radha notified and ERP Dr Torres notified for orders. Pt SPO2 is 89% on 2 L NC when trying to help pt get comfortable, noted IV site to Rt AC is infiltrated when giving IV antibx. Pt reports pain is worsening w/ movment. pt changed of incont wet depend and when rolling pt she c/o severe pain and difficulty breathing. This RN Spoke w/ ERP Dr torres personally to give updated report on pt condition and orders obtained.
[2024-11-17] MEDS: HYDROmorphone HCL INJ (*CRX) 2 MG/ML VIAL 0.5 MG IV PUSH (06:30)
--- NOTE | 2024-11-17 06:48 | PC.NURSE ---
Pt resting at this time after given Dilaudid, more relaxed and VSS. Awaiting d-dimer results and CTA to be done.
[2024-11-17] MEDS: ENOXAPARIN 60 MG/0.6 ML SYRINGE SUB-Q (06:53)
[2024-11-17 06:54] LABS: D Dimer 1.92 mg/L (0.19-0.50)
--- NOTE | 2024-11-17 06:54 | PC.NURSE ---
Dr. Deleon notified of critical D-dimer of 1.92.
[2024-11-17] MEDS: ONDANSETRON INJ 4 MG/2 ML VIAL IV PUSH (07:02)
[2024-11-17 08:18] LABS: Glucose Point of Care 207 mg/dl (65-105)
[2024-11-17 08:37] LABS: Basophils Absolute Auto 0.07 K/mm3 (0.00-0.10); Basophils Percent Auto 0.6 % (0.0-1.0); Eosinophils Absolute Auto 0.08 K/mm3 (0.02-0.50); Eosinophils Percent Auto 0.7 % (1.0-6.0); Hematocrit 37.7 % (35.0-49.0); Hemoglobin 11.2 g/dL (12.0-15.0); Immature Granulocyte Absolute 0.19 K/mm3 (0.00-0.00); Immature Granulocyte Percent A 1.8 % (0.0-0.0); Lymphocytes Absolute Auto 2.04 K/mm3 (1.10-4.50); Lymphocytes Percent Auto 18.9 % (18.0-42.0); Mean Corpuscular HGB Conc 29.7 g/dL (32-36); Mean Corpuscular Hemoglobin 23.4 pg (27.0-31.0); Mean Corpuscular Volume 78.9 fL (78.0-102.0); Mean Platelet Volume 9.3 fl (9.2-11.8); Monocytes Absolute Auto 0.97 K/mm3 (0.10-0.90); Neutrophils Absolute Auto 7.46 K/mm3 (1.70-7.20); Platelet Count Result 214 K/mm3 (150-420); Red Blood Count 4.78 M/mm3 (4.20-5.40); Red Cell Distribution Width 18.7 % (11.6-14.4); White Blood Count 10.8 K/mm3 (4.8-10.8)
[2024-11-17 08:54] LABS: Alanine Aminotransferase 19 U/L (14-59); Albumin Level 2.6 g/dL (3.4-5.0); Alkaline Phosphatase 76 U/L (46-116); Anion Gap 9 mmol/L (4-12); Aspartate Amino Transferase < 10 U/L (15-37); Bilirubin,Total 0.4 mg/dL (0.00-1.00); Blood Urea Nitrogen 13 mg/dL (7-18); Calcium 7.9 mg/dL (8.5-10.1); Carbon Dioxide 23 mmol/L (21-32); Chloride 106 mmol/L (98-108); Estimated CRCL calculation 49 ml/min; Estimated Glomerular Filt Rate 56; Glucose 257 mg/dL (70-99); Osmolality Calculated 295 mOsm/kg (285-295); Potassium 4.2 mmol/L (3.5-5.1); Sodium 138 mmol/L (136-145); Total Protein 6.3 g/dL (6.4-8.2)
[2024-11-17 08:56] LABS: Troponin I < 4.0 ng/L (0.00-60.4)
--- NOTE | 2024-11-17 09:23 | P.HP_ITS ---
H&P: HPI History of Present Illness Date/Time: 11/17/24 09:23 Chief Complaint: Left side chest/back/flank pain Narrative: Patient is a 59-year-old female who presented to the emergency department with severe left-sided chest pain that also was radiating from shoulder to abdomen to back left flank worse with inspiration. 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 Patient also has a past medical history of diabetes and COPD. patient's at bedside reported patient had severe pain that started the previous night prior to arrival she does take baclofen for muscle pain however nothing was working. There was reported the emergency department she was given a total of 2 mg Dilaudid and still and severe pain. patient had an initial CT with contrast of abdomen pelvis which showed a slightly thickened sigmoid colon possible colitis and sliding hiatus hernia lower chest showed a cavitary lesion of the left apical area however family is aware and she has been following up outpatient. patient's D-dimer was elevated at 1.94 a CTA chest was then ordered which showed an acute pulmonary embolism of the left inferior lower pulmonary artery with right heart strain. she had received a full dose of Lovenox in the emergency department transitioned to heparin drip. patient was tachycardic and requiring supplemental oxygen to maintain 92% had desaturations to 87%. CT head was also ordered showed no acute intracranial hemorrhage but did show possible right acute mastoiditis. troponins x2 negative. spoke with family regarding the need for transfer for further evaluation and treatment with a echocardiogram and possible need for thrombectomy which they agreed. Patient did have nausea/vomiting x 2 likely secondary to her pain medication and relieved with zofran. Patient at time of visist was comfortable and in less pain. EKG with sinus rhythm and incomplete right bundle branch block. of note patient was also found to have urinary tract infection and possible colitis was started on Zosyn in the ED but transitioned to ceftriaxone and Flagyl. Review of Systems Review of Systems: All systems reviewed & are unremarkable except as noted in HPI and below PMFSH Past Medical History Medical History (Updated 11/17/24 @ 10:01 by Abby Hawk APRN) COPD (chronic obstructive pulmonary disease) Left hemiplegia CVA (cerebral vascular accident) Diabetes Family History Family History (Updated 11/17/24 @ 00:57 by Ly Li RN) Other Cerebrovascular accident Diabetes mellitus Hypertension Social History Social History Smoking packs per day: 1 Smoking cigarettes per day: 20.0 Years smoked: 25 Smoking pack-years: 25.00 Smoking status: Former smoker Tobacco type: cigarettes Alcohol intake: never Substance use: current Substance use type: marijuana Do You Feel Safe in your Home?: Yes Lack of Transportation: No Lack of Food: Never True Current Housing: I Have Housing Concerned About Future Housing: No Difficulty Paying Gas/Electric Bills: No Difficulty Paying for Meds: No Currently Unemployed: No Education: High School Diploma/GED Difficulty w/ Childcare or Family Care: No Spiritual care concerns: No Meds Home Medications and Allergies Home Medications ?Medication ?Instructions ?Recorded ?Confirmed ?Type atorvastatin 80 mg tablet 80 mg PO DAILY 11/16/24 11/17/24 History baclofen 10 mg tablet 10 mg PO DAILY 11/16/24 11/16/24 History blood-glucose meter (OneTouch 11/16/24 11/16/24 History Verio Flex Meter) losartan 100 mg tablet 100 mg PO DAILY 11/16/24 11/16/24 History metformin 500 mg tablet 500 mg PO DAILY 11/16/24 11/16/24 History prednisone 10 mg tablet 10 mg PO DAILY 11/16/24 11/16/24 History umeclidinium 62.5 mcg-vilanterol 1 inh inhalation DAILY 11/16/24 11/16/24 History 25 mcg/actuation powdr for inhalation (Anoro Ellipta) Allergies Allergy/AdvReac Type Severity Reaction Status Date / Time No Known Allergies Allergy Verified 11/16/24 20:39 Vital Signs Vital Signs - 24 hr 11/16/24 20:32 11/16/24 21:34 11/16/24 21:45 Temperature 99.7 F H Pulse Rate 109 H 95 106 H Respiratory Rate 18 14 17 Blood Pressure 146/83 H Pulse Oximetry 95 93 93 Oxygen Delivery Room Air Oxygen Flow Rate 11/16/24 22:32 11/16/24 22:45 11/16/24 23:00 Temperature Pulse Rate 118 H 109 H 114 H Respiratory Rate 20 18 21 H Blood Pressure Pulse Oximetry 91 92 89 L Oxygen Delivery Oxygen Flow Rate 11/16/24 23:15 11/16/24 23:30 11/16/24 23:47 Temperature Pulse Rate 111 H 112 H 117 H Respiratory Rate 16 18 Blood Pressure Pulse Oximetry 89 L 87 L Oxygen Delivery Oxygen Flow Rate 11/16/24 23:48 11/17/24 00:00 11/17/24 01:22 Temperature 97.6 F Pulse Rate 114 H 106 H 100 Respiratory Rate 14 22 H 20 Blood Pressure 137/86 164/92 H Pulse Oximetry 94 96 96 Oxygen Delivery Nasal Cannula Nasal Cannula Oxygen Flow Rate 2 2 2 11/17/24 04:00 11/17/24 06:00 11/17/24 06:49 Temperature 97.7 F 97.7 F 97.7 F Pulse Rate 89 108 H 103 H Respiratory Rate 20 24 H 20 Blood Pressure 153/87 H 186/111 H 133/82 Pulse Oximetry 95 91 94 Oxygen Delivery Nasal Cannula Nasal Cannula Nasal Cannula Oxygen Flow Rate 2 2 2 Exam Const: General: no acute distress Other: Patient pleasant lethargic with moderate pain to left side HENMT: Mouth: Yes moist mucous membranes Eyes: General: appearance normal, both eyes and all related structures Pupils: Equal, round and reactive pupils present Neck: Neck: supple and no JVD Resp: Effort & Inspection: normal respiratory effort Auscultation: diminished lung sounds on the left Other: pain with inspiration Cardio: Rate: tachycardic Rhythm: regular rhythm GI: GI Palp: Yes Soft to palpation Auscultation: normal bowel sounds Skin: General skin exam: normal color Extrem: General: normal to inspection Psych: Mental Status: mental status grossly normal Affect: normal affect H&P: Results Labs Labs: Short CBC 11/16/24 11/17/24 11/17/24 Range/Units 21:12 06:24 08:33 WBC 12.9 H Cancelled 10.8 (4.8-10.8) K/mm3 Hgb 12.5 Cancelled 11.2 L (12.0-15.0) g/dL Hct 41.8 Cancelled 37.7 (35.0-49.0) % Plt Count 263 Cancelled 214 (150-420) K/mm3 BMP 11/16/24 11/17/24 21:12 06:24 Sodium 136 138 Potassium 4.2 4.2 Chloride 100 106 Carbon Dioxide 23 23 BUN 14 13 Creatinine 1.11 H 1.01 Glucose 283 H 257 H Calcium 8.8 7.9 L Cardiac Enzymes 11/16/24 11/17/24 Range/Units 21:12 06:24 Troponin I 5.7 < 4.0 (0.00-60.4) ng/L Liver Function 11/16/24 11/17/24 Range/Units 21:12 06:24 Total Bilirubin 0.4 0.4 (0.00-1.00) mg/dL AST 13 L < 10 L (15-37) U/L ALT 23 19 (14-59) U/L Alkaline Phosphatase 78 76 (46-116) U/L Albumin 2.9 L 2.6 L (3.4-5.0) g/dL Urine 11/16/24 Range/Units 23:04 Urine Color Yellow (Yellow) Urine Appearance Clear (Clear) Urine pH 5.0 (5.0-8.0) Ur Specific [place] <= 1.005 L (1.010-1.020) Urine Protein Negative (Negative) Urine Glucose (UA) 1+ H (Negative) Imaging CT scan - chest: Radiologist's impression: FINDINGS: EXAM QUALITY: Adequate visualization of the pulmonary arteries to the lobar level. PULMONARY ARTERIAL VASCULATURE: Large filling defect in the left inferior lobar pulmonary artery compatible with acute pulmonary embolism. VISUALIZED LOWER NECK: Thyroid gland appears normal. No supraclavicular lymphadenopathy. AIRWAYS: Patent centrally. LUNGS and PLEURA: Unchanged 2.3 x 1.7 cm cavitary lesion in the left apical lung. No focal consolidation or ground glass opacity.No pleural effusion. MEDIASTINUM and CORIN: Prominent subcarinal lymph node is again seen. Fluid- filled esophagus. HEART AND PERICARDIUM: Mild right heart strain. No pericardial effusion. VASCULATURE: Thoracic aorta and pulmonary arteries are normal in caliber. CHEST WALL: No supraclavicular or axillary lymphadenopathy. MUSCULOSKELETAL: Multilevel degenerative changes of the visualized spine. No suspicious osseous lesions. UPPER ABDOMEN: Small hiatal hernia. IMPRESSION: 1. Acute pulmonary embolism in the left inferior lobar pulmonary artery along with right heart strain. 2. Fluid-filled esophagus. Aspiration precautions are recommended. 3. Cavitary lesion in the left apical lung. Short interval follow-up CT chest is recommended in 3 months. Assessment and Plan Assessment and plan (1) Pulmonary embolism: Code(s): I26.99 - Other pulmonary embolism without acute cor pulmonale Status: Acute (2) Diabetes: Code(s): E11.9 - Type 2 diabetes mellitus without complications Status: Acute (3) Colitis: Code(s): K52.9 - Noninfective gastroenteritis and colitis, unspecified Status: Acute (4) Urinary tract infection: Code(s): N39.0 - Urinary tract infection, site not specified Status: Acute Plan Disposition: Plan for transfer to [facility] VTE Prophylaxis VTE prophylaxis: pharmacologic ordered -Patient's previous records reviewed on admission -ER notes reviewed in detail on admission -discussed all findings and current treatment plan with patient/Family/POA -Consultations reviewed for recommendations -Patient's disposition for safe discharge discussed with case management rn Dictation performed by [employer] direct speech recognition software, therefore forklift technician variants and typographical errors may occur. Hospitalist MIPS Advance Care Plan I have confirmed that the patient's Advanced Care Plan is present, code status is documented, or surrogate decision maker is listed in patient medical record.: Yes Medication Reconciliation I have utilized all available resources to obtain, update and review the patients current medications (includes all prescriptions, OTC, herbals, cannabis, and nutritional supplements).: Yes The patient is not eligible for med reconciliation; the patient is in a emergent medical situation where delaying treatment would jeopardize the patients health.: No
[2024-11-17 09:34] LABS: INR 0.9; Partial Thromboplastin Time 27.2 Sec (23.9-30.70); Prothrombin Time 10.3 Seconds (9.50-12.1)
[2024-11-17] MEDS: UMECLIDINIUM/VILANTEROL 62.5-25 MCG ELLIPTA 1 PUFF INHALATION (09:48)
--- NOTE | 2024-11-17 10:03 | P.TS_ITS ---
Transfer Discharge Sum: Prov Provider Date of admission: 11/17/24 00:11 Primary care physician: Johnny Sapp Admitting clinician: Paulie Velásquez MD Attending physician on admission: Lorenzo Velásquez Attending physician on discharge: Lorenzo Velásquez Discharging clinician: Abby Hawk Anticipated date of transfer: 11/17/24 Receiving physician/facility: [facility] DS: Admitting Diagnosis Discharge Date 11/17/2024 Admitting Diagnosis Left sided chest/back/flank pain (Pulmonary embolism)/UTI/colitis DS: Discharge Diagnosis Discharge Diagnosis (1) Pulmonary embolism: Code(s): I26.99 - Other pulmonary embolism without acute cor pulmonale Status: Acute (2) Diabetes: Code(s): E11.9 - Type 2 diabetes mellitus without complications Status: Acute (3) Colitis: Code(s): K52.9 - Noninfective gastroenteritis and colitis, unspecified Status: Acute (4) Urinary tract infection: Code(s): N39.0 - Urinary tract infection, site not specified Status: Acute Plan Disposition: Plan for transfer to [place], [place] Transfer Discharge Sum: Med Medications Active and Home Medications: Home Medications atorvastatin 80 mg tablet 80 mg PO DAILY 11/16/24 [History Confirmed 11/17/24] baclofen 10 mg tablet 10 mg PO DAILY 11/16/24 [History Confirmed 11/16/24] blood-glucose meter (OneTouch Verio Flex Meter) 11/16/24 [History Confirmed 11/16/24] losartan 100 mg tablet 100 mg PO DAILY 11/16/24 [History Confirmed 11/16/24] metformin 500 mg tablet 500 mg PO DAILY 11/16/24 [History Confirmed 11/16/24] prednisone 10 mg tablet 10 mg PO DAILY 11/16/24 [History Confirmed 11/16/24] umeclidinium 62.5 mcg-vilanterol 25 mcg/actuation powdr for inhalation (Anoro Ellipta) 1 inh inhalation DAILY 11/16/24 [History Confirmed 11/16/24] Active Medications Acetaminophen (Acetaminophen 325 Mg Tablet) 650 mg PO Q4H PRN PRN Reason: Mild Pain (1-3) or Fever Hydrocodone Bitart/Acetaminophen (Hydrocodone/Acetaminophen (*Crx) 5-325 Mg Tablet) 1 tab PO Q4H PRN PRN Reason: Moderate Pain (4-6) Atorvastatin Calcium (Atorvastatin 40 Mg Tablet) 80 mg PO DAILY [facility] Baclofen (Baclofen 10 Mg Tablet) 10 mg PO DAILY [facility] Dextrose (Dextrose 50% 25 Gm/50 Ml Syringe) 12.5 gm IV PUSH PRN PRN; Protocol PRN Reason: Hypoglycemia Glucagon (Glucagon For Inj 1 Mg Vial) 1 mg IM PRN PRN; Protocol PRN Reason: Hypoglycemia Glucose (Glucose Oral Gel 15 Gm Of Glucse In 37.5 Gm Tube) 15 gm PO PRN PRN; Protocol PRN Reason: Hypoglycemia Heparin Sodium (Porcine) (Heparin Sodium 5,000 Units/Ml Vial) 5,000 units IV PUSH PRN PRN PRN Reason: aPTT less than 55 seconds Heparin Sodium (Porcine) (Heparin Sodium 5,000 Units/Ml Vial) 2,500 units IV PUSH PRN PRN PRN Reason: aPTT 55 - 70 seconds Sodium Chloride (Normal Saline Iv) 1,000 mls @ 125 mls/hr IV CONT .Q8H [facility] Last Admin: 11/17/24 09:40 Dose: 125 mls/hr Dextrose (Dextrose 5% 1,000 Ml) 1,000 mls @ 100 mls/hr IVPB PRN PRN; Protocol PRN Reason: Hypoglycemia Ceftriaxone Sodium (Rocephin 1 Gm/Ns 50 Ml) 1 gm in 50 mls @ 100 mls/hr IVPB Q24H [facility] Last Admin: 11/17/24 09:35 Dose: 100 mls/hr Magnesium Sulfate (Magnesium Sulf 2 Gm/Water 50ml) 2 gm in 50 mls @ 25 mls/hr IVPB ONCE ONE Stop: 11/17/24 10:49 Heparin Sodium/Dextrose (Heparin Sodium/D5w 100 Units/Ml) 25,000 units in 250 mls @ 12 mls/hr IV CONT .[id number] [facility]; Protocol Insulin Human Lispro (Insulin Human Lispro (*Bkc) 1,000 Units/10 Ml Vial) 2 - 5 units SUB-Q TIDWM [facility]; Protocol Losartan Potassium (Losartan Potassium 50 Mg Tablet) 100 mg PO QAM [facility] Metronidazole (Metronidazole 250 Mg Tablet) 500 mg PO Q8HR [facility] Ondansetron HCl (Ondansetron Inj 4 Mg/2 Ml Vial) 4 mg IV PUSH Q6H PRN PRN Reason: Nausea And Vomiting Last Admin: 11/17/24 07:02 Dose: 4 mg Prednisone (Prednisone 10 Mg Tablet) 10 mg PO DAILY [facility] Umeclidinium/Vilanterol (Umeclidinium/Vilanterol 62.5-25 Mcg Ellipta) 1 puff INHALATION DAILY [facility] Transfer Discharge Sum: Hosp Hospital Course Hospital course: Patient is a 59-year-old female who presented to the emergency department with severe left-sided chest pain that also was radiating from shoulder to abdomen to back left flank worse with inspiration. 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 Patient also has a past medical history of diabetes and COPD. patient's at bedside reported patient had severe pain that started the previous night prior to arrival she does take baclofen for muscle pain however nothing was working. There was reported the emergency department she was given a total of 2 mg Dilaudid and still and severe pain. patient had an initial CT with contrast of abdomen pelvis which showed a slightly thickened sigmoid colon possible colitis and sliding hiatus hernia lower chest showed a cavitary lesion of the left apical area however family is aware and she has been following up outpatient. patient's D-dimer was elevated at 1.94 a CTA chest was then ordered which showed an acute pulmonary embolism of the left inferior lower pulmonary artery with right heart strain. she had received a full dose of Lovenox in the emergency department transitioned to heparin drip. patient was tachycardic with HR ranging from 105-110's as well as requiring supplemental oxygen to maintain 92% had desaturations to 87%. CT head was also ordered showed no acute intracranial hemorrhage but did show possible right acute mastoiditis. troponins x2 negative. spoke with family regarding the need for transfer for further evaluation and treatment with a echocardiogram and possible need for thrombectomy which they agreed. Patient did have nausea/vomiting x 2 likely secondary to her pain medication and relieved with zofran. Patient at time of visist was comfortable and in less pain. EKG with sinus rhythm and incomplete right bundle branch block. of note patient was also found to have urinary tract infection and possible colitis was started on Zosyn in the ED but transitioned to ceftriaxone and Flagyl. I also had performed a a1c showing 11 will need adjustment to antidiabetic medication curr ently only on daily Metformin. Patient was transferred via EMS to [facility] for tertiary care Time Spent with Patient Time attestation: Total time spent providing and/or coordinating transfer services: Total time spent: Greater than 30 minutes Exam Const: General: no acute distress Other: Patient pleasant lethargic with moderate pain to left side HENMT: Mouth: Yes moist mucous membranes Eyes: General: appearance normal, both eyes and all related structures Pupils: Equal, round and reactive pupils present Neck: Neck: supple and no JVD Resp: Effort & Inspection: normal respiratory effort Auscultation: diminished lung sounds on the left Other: pain with inspiration Cardio: Rate: tachycardic Rhythm: regular rhythm GI: Auscultation: normal bowel sounds Skin: General skin exam: normal color Neuro: Cranial nerves: Yes Equal, round and reactive pupils present Extrem: General: normal to inspection Psych: Mental Status: mental status grossly normal Affect: normal affect DS: Data Data Completed and Pending Labs on day of discharge: Labs from last 24 hours 11/17/24 11/17/24 11/17/24 09:16 08:33 08:13 WBC 10.8 RBC 4.78 Hgb 11.2 L Hct 37.7 MCV 78.9 MCH 23.4 L MCHC 29.7 L RDW 18.7 H Plt Count 214 MPV 9.3 Immature Gran % (Auto) 1.8 H Neut % (Auto) 69.0 Lymph % (Auto) 18.9 Rankin % (Auto) 9.0 Eos % (Auto) 0.7 L Baso % (Auto) 0.6 Lymph # (Auto) 2.04 Rankin # (Auto) 0.97 H Eos # (Auto) 0.08 Baso # (Auto) 0.07 Abs Immat Gran (auto) 0.19 H Absolute Neuts (auto) 7.46 H Absolute Nucleated RBC 0.00 Nucleated RBC % 0.0 % Immature Plt Fraction PT 10.3 INR 0.9 APTT 27.2 D-Dimer Sodium Potassium Chloride Carbon Dioxide Anion Gap BUN Creatinine Estim Creat Clear Calc Estimated GFR Glucose POC Capillary Glucose 207 H Hemoglobin A1c Calculated Osmolality Lactic Acid Calcium Magnesium Total Bilirubin AST ALT Alkaline Phosphatase Troponin I C-Reactive Protein Total Protein Albumin Lipase Urine Color Urine Appearance Urine pH Ur Specific [place] Urine Protein Urine Glucose (UA) Urine Ketones Ur Blood (Man) Urine Nitrate Urine Bilirubin Urine Urobilinogen Leukocyte Esterase Rfl Influenza A (RT-PCR) Influenza B (RT-PCR) RSV (RT-PCR) SARS-CoV-2 RNA (RT-PCR) 11/17/24 11/17/24 11/17/24 06:32 06:24 02:41 WBC Cancelled RBC Cancelled Hgb Cancelled Hct Cancelled MCV Cancelled MCH Cancelled MCHC Cancelled RDW Cancelled Plt Count Cancelled MPV Cancelled Immature Gran % (Auto) Cancelled Neut % (Auto) Cancelled Lymph % (Auto) Cancelled Rankin % (Auto) Cancelled Eos % (Auto) Cancelled Baso % (Auto) Cancelled Lymph # (Auto) Cancelled Rankin # (Auto) Cancelled Eos # (Auto) Cancelled Baso # (Auto) Cancelled Abs Immat Gran (auto) Cancelled Absolute Neuts (auto) Cancelled Absolute Nucleated RBC Cancelled Nucleated RBC % Cancelled % Immature Plt Fraction Cancelled PT INR APTT D-Dimer 1.92 H* Sodium 138 Potassium 4.2 Chloride 106 Carbon Dioxide 23 Anion Gap 9 BUN 13 Creatinine 1.01 Estim Creat Clear Calc 49 Estimated GFR 56 L Glucose 257 H POC Capillary Glucose Hemoglobin A1c 11.0 H Calculated Osmolality 295 Lactic Acid 1.0 Calcium 7.9 L Magnesium Total Bilirubin 0.4 AST < 10 L ALT 19 Alkaline Phosphatase 76 Troponin I < 4.0 C-Reactive Protein Total Protein 6.3 L Albumin 2.6 L Lipase Urine Color Urine Appearance Urine pH Ur Specific [place] Urine Protein Urine Glucose (UA) Urine Ketones Ur Blood (Man) Urine Nitrate Urine Bilirubin Urine Urobilinogen Leukocyte Esterase Rfl Influenza A (RT-PCR) Influenza B (RT-PCR) RSV (RT-PCR) SARS-CoV-2 RNA (RT-PCR) 11/16/24 11/16/24 11/16/24 23:30 23:04 21:16 WBC RBC Hgb Hct MCV MCH MCHC RDW Plt Count MPV Immature Gran % (Auto) Neut % (Auto) Lymph % (Auto) Rankin % (Auto) Eos % (Auto) Baso % (Auto) Lymph # (Auto) Rankin # (Auto) Eos # (Auto) Baso # (Auto) Abs Immat Gran (auto) Absolute Neuts (auto) Absolute Nucleated RBC Nucleated RBC % % Immature Plt Fraction PT INR APTT D-Dimer Sodium Potassium Chloride Carbon Dioxide Anion Gap BUN Creatinine Estim Creat Clear Calc Estimated GFR Glucose POC Capillary Glucose Hemoglobin A1c Calculated Osmolality Lactic Acid 1.4 Calcium Magnesium Total Bilirubin AST ALT Alkaline Phosphatase Troponin I C-Reactive Protein Total Protein Albumin Lipase Urine Color Yellow Urine Appearance Clear Urine pH 5.0 Ur Specific [place] <= 1.005 L Urine Protein Negative Urine Glucose (UA) 1+ H Urine Ketones Negative Ur Blood (Man) Negative Urine Nitrate Positive H Urine Bilirubin Negative Urine Urobilinogen 0.2 Leukocyte Esterase Rfl Negative Influenza A (RT-PCR) Negative Influenza B (RT-PCR) Negative RSV (RT-PCR) Negative SARS-CoV-2 RNA (RT-PCR) Negative 11/16/24 11/16/24 21:12 20:41 WBC 12.9 H RBC 5.38 Hgb 12.5 Hct 41.8 MCV 77.7 L MCH 23.2 L MCHC 29.9 L RDW 18.5 H Plt Count 263 MPV 9.5 Immature Gran % (Auto) 2.1 H Neut % (Auto) 63.8 Lymph % (Auto) 25.4 Rankin % (Auto) 7.3 Eos % (Auto) 0.9 L Baso % (Auto) 0.5 Lymph # (Auto) 3.29 Rankin # (Auto) 0.95 H Eos # (Auto) 0.11 Baso # (Auto) 0.07 Abs Immat Gran (auto) 0.27 H Absolute Neuts (auto) 8.24 H Absolute Nucleated RBC 0.00 Nucleated RBC % 0.0 % Immature Plt Fraction PT 10.2 INR 0.9 APTT 25.1 D-Dimer Sodium 136 Potassium 4.2 Chloride 100 Carbon Dioxide 23 Anion Gap 13 H BUN 14 Creatinine 1.11 H Estim Creat Clear Calc 45 Estimated GFR 51 L Glucose 283 H POC Capillary Glucose 247 H Hemoglobin A1c Calculated Osmolality 292 Lactic Acid 2.1 H Calcium 8.8 Magnesium 1.5 L Total Bilirubin 0.4 AST 13 L ALT 23 Alkaline Phosphatase 78 Troponin I 5.7 C-Reactive Protein 5.7 H Total Protein 7.0 Albumin 2.9 L Lipase 50 Urine Color Urine Appearance Urine pH Ur Specific [place] Urine Protein Urine Glucose (UA) Urine Ketones Ur Blood (Man) Urine Nitrate Urine Bilirubin Urine Urobilinogen Leukocyte Esterase Rfl Influenza A (RT-PCR) Influenza B (RT-PCR) RSV (RT-PCR) SARS-CoV-2 RNA (RT-PCR) Imaging Radiologist's impression: CT chest abdomen pelvis w con Ordering provider: Tanner Deleon MD History: 59 years Female with . left chest pain, left abdominal pain left flank pain X 4 HRS . Comparison: None. Technique: CT chest with IV contrast. CT abdomen and pelvis CT abdomen and pelvis with IV and with oral contrast. Radiation reduction technique utilized.The dose-length product was 741.03 mGy- cm. 100 mL Omnipaque 350 was given IV. FINDINGS: CHEST: --VISUALIZED THORACIC INLET: Normal. --MEDIASTINUM: Aorta/coronary arteries: Mild atheromatous disease. Heart/other: The heart is not enlarged. Trace of pericardial effusion. Lymph nodes: No mediastinal or hilar adenopathy. Subcarinal lymph node measuring 1.2 cm is noted. --LUNGS: Cavitary lesion is seen in the left apical area which measure 2.3 x 1.7 cm. Septations seen in this lesion. Left basilar atelectasis with minimal effusion. No pulmonary nodules or masses. No pneumothorax. --MUSCULOSKELETAL: Soft tissues: The superficial soft tissues are normal. Bones: Age appropriate degenerative changes of the spine. No suspicious bony lytic or sclerotic lesions. ABDOMEN/PELVIS: --MUSCULOSKELETAL: Bones: Age appropriate degenerative changes of the spine. No suspicious bony lytic or sclerotic lesions. Sclerotic area seen in the right body and pedicle of L2. Sclerotic area also seen in the right sixth rib. Superficial soft tissues: Small fat-containing umbilical hernia. Otherwise, The superficial soft tissues are normal. --UPPER ABDOMINAL ORGANS: Liver: Normal. Gallbladder: Normal. Spleen: Normal. Stomach/duodenum: Sliding hiatus hernia. Pancreas: Normal. Adrenals: Normal. Kidneys: Normal. --PELVIC ORGANS: The bladder shows slightly thickened wall. No bladder stones. --BOWEL AND MESENTERY: Colon: No evidence of diverticulitis. Slightly thickened wall of the sigmoid colon which may indicate colitis. Normal appendix. Small Bowel: Normal. No obstruction. Peritoneum/mesentery: No free air or free fluid. No mesenteric lymphadenopathy. --RETROPERITONEUM: Mild atheromatous disease of the abdominal aorta. Left retroaortic renal vein is noted. No retroperitoneal lymphadenopathy. IMPRESSION: CHEST: 1. Cavitary lesion in the left apical area. Follow-up in 3 months is advised. 2. Left basilar atelectasis with minimal effusion. ABDOMEN/PELVIS: 1. No evidence of appendicitis, diverticulitis or intestinal obstruction. 2. Slightly thickened wall of the sigmoid colon which may indicate colitis. Clinical correlation and follow-up advised. 3. Sliding hiatus hernia. EXAM: CTA chest PE protocol - 11/17/2024 07:14 CDT History: 59 years old Female with CHEST PAIN. R/O PE. TECHNIQUE: CTA of the chest with contrast, according to pulmonary embolism protocol. Reformatted coronal, sagittal, and 3-D MIP images were obtained. 100 cc of Optiray 350 were used for the study. Automatic exposure control was used for this study. COMPARISON: 11/16/2024 FINDINGS: EXAM QUALITY: Adequate visualization of the pulmonary arteries to the lobar level. PULMONARY ARTERIAL VASCULATURE: Large filling defect in the left inferior lobar pulmonary artery compatible with acute pulmonary embolism. VISUALIZED LOWER NECK: Thyroid gland appears normal. No supraclavicular lymphadenopathy. AIRWAYS: Patent centrally. LUNGS and PLEURA: Unchanged 2.3 x 1.7 cm cavitary lesion in the left apical lung. No focal consolidation or ground glass opacity.No pleural effusion. MEDIASTINUM and CORIN: Prominent subcarinal lymph node is again seen. Fluid- filled esophagus. HEART AND PERICARDIUM: Mild right heart strain. No pericardial effusion. VASCULATURE: Thoracic aorta and pulmonary arteries are normal in caliber. CHEST WALL: No supraclavicular or axillary lymphadenopathy. MUSCULOSKELETAL: Multilevel degenerative changes of the visualized spine. No suspicious osseous lesions. UPPER ABDOMEN: Small hiatal hernia. IMPRESSION: 1. Acute pulmonary embolism in the left inferior lobar pulmonary artery along with right heart strain. 2. Fluid-filled esophagus. Aspiration precautions are recommended. 3. Cavitary lesion in the left apical lung. Short interval follow-up CT chest is recommended in 3 months. EXAM: CT brain alyssa sharif - 11/17/2024 08:30 CDT History: 59 years old Female with AMS COMPARISON: None available. PROCEDURE: CT of the head without contrast. Axial, sagittal and coronal reformatted planes were evaluated. Automatic exposure control was used for this study. FINDINGS: BRAIN PARENCHYMA: No acute hemorrhage. No mass effect or herniation. Nesbitt-white matter differentiation is maintained. Normal appearance of cortex. Intravenous contrast from prior examination is seen in the intracranial vessels. VENTRICLES/ EXTRA-AXIAL SPACES: No hydrocephalus or extra-axial fluid collection. EXTRACRANIAL STRUCTURES: Partial opacification of right mastoid air cells. Remaining visualized paranasal sinuses and mastoid air cells are clear. No calvarial fracture seen. IMPRESSION: 1. No evidence for acute intracranial hemorrhage or calvarial fracture. 2. Partial opacification of right mastoid air cells. Correlate clinically to rule out acute mastoiditis. Additional Comments Additional comments: -Patient's previous records reviewed on admission -ER notes reviewed in detail on admission -discussed all findings and current treatment plan with patient/Family/POA -Consultations reviewed for recommendations -Patient's disposition for safe discharge discussed with lining caser Dictation performed by [employer] direct speech recognition software, therefore cleat feeder variants and typographical errors may occur.
[2024-11-17] MEDS: HEPARIN SOD/D5W 100 UNITS/ML 25,000 UNITS/250 ML BAG 12 UNITS IV CONT (10:15)
[2024-11-17] MEDS: MAGNESIUM SULF 2 GM/WATER 50ML 2 GM/50 ML BAG IVPB (10:35)
--- OUTSIDE RECORDS SUMMARY | 2024-11-19 07:28 | XMS_ITS | Encounter Summary ---
Author Organization [facility] Address 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 Name Role Phone Unavailable Primary Care Provider Unavailabl e Encounter Details Date Type Department Care Team (Late st Contact Info) Description 11/17/2024 2:27 PM CDT - Present Hospital Encounter [facility] Cardiovascular Progressive Care unit [id number] [place] [id number] [place] [address] [place] [address] [place] [address] [place] [address] [place] [id number] [address] [place] [id number] [address] Single subsegmental pulmonary embolism without acute cor pulmonale (CMS/HCC) Social History Tobacco Use Types Packs/Day Years Used Date Smoking Tobacco: Never Assessed Comments Unknown Sex and Gender Information Value Date Recorded Sex Assigned at Not on file Legal Sex Female 10:22 AM CDT Gender Identity Not on file Sexual Orientation Not on file documented as of this encounter Last Filed Vital Signs Vital Sign Reading Time Taken Comments Blood Pressure 126/68 11/19/2024 3:00 AM CDT Pulse 78 11/19/2024 3:00 AM CDT Temperature 36.7 C (98 F) 11/19/2024 3:15 AM CDT Respiratory Rate 22 11/19/2024 3:00 AM CDT Oxygen Saturation 90% 11/19/2024 3:00 AM CDT Inhaled Oxygen Concentration - - Weight 68.9 kg (152 lb) 11/18/2024 4:06 AM CDT Height 165.1 cm (5' 5 ) 11/17/2024 2:00 PM CDT Body Mass Index 25.29 11/17/2024 2:00 PM CDT documented in this encounter Progress Notes * Arely Nesbitt RDCS - 11/17/2024 3:42 PM CDT ORDERS ARE ENTERED ???PER PROTOCOL?? or ???TELEPHONE ORDER WITH READBACK?? Enter the protocol in the patient's electronic health record using Fillmrase: .definityprotocol PROTOCOL: IF: Patient does not meet any exclusion criteria and meets at least one of the inclusion criteria both detailed in [facility] Administration of Ultrasound Enhancing Agent_Definity (perflutren lipid microspheres) Policy. THEN: Trained Water Resources Technical Officer or Nurse may proceed with Echocardiogram performance using ultrasound enhancing agent (Definity) during the procedure. [facility] currently uses 1.3 mL or activated Definity diluted with 8.7 mL of 0.9% preservative free normal saline. Cardiac Orders: Echo Complete w Contrast - [id number] Echo Limited w Contrast - [id number] Stress Echo w Contrast - [id number] Echo Limited w Contrast and wo Doppler and Color Flow - [id number] Echo Stress w Contrast Exer w Doppl and Color Flow - [id number] Echo Stress w Contrast Exercise - [id number] Echo Stress w Contrast Pharm w Dopp and Color Fl - [id number] Echo Stress w Contrast Pharmaco - [id number] Medication Orders: Perflutren Lipid microspheres (DEFINITY) 1.3 mL, dilute and give IV intra- procedure, ONE time only Facility Name(s): [facility] Policy/Procedure: [facility] Administration of Ultrasound Enhancing Agent_ Definity (perflutren lipid microspheres) Policy and Protocol Approved by: [facility] - Medical Executive Committee, [facility] - Pharmacy and Therapeutics Committee, Angeli Rene (Director-Nursing), Lasha Giordano (Physician), Dunia Tejada (SLOT TAG INSERTER-Strategic Initiatives & Ops), Jarocho Delgado (Bullion Weigher), Chitra Andino (Professional Bass Fisher-Cardiovascular Srvcs) Date: 06/28/2023 Initiating Department(s): Noninvasive Cardiology Effective Date: 06/28/2023 * Joselito Elizabeth RCP - 11/17/2024 3:32 PM CDT Images from the original note were not included. Respiratory Therapy Orders Protocol Background: The nature of Electronic Health Record (EPIC) respiratory orders promotes an ordering pattern that sometimes interferes with our ability to use work load management and therapy monitoring tools. To assist, we have highlighted orders that will help our patients receive appropriate Respiratory Care while granting us the authority to improve on the orderable. This will increase EPIC???S functionality for our department and simplify the ordering process for respiratory care. Implementation: 1. CON21 - IP Consult to Respiratory Care: We will assess the patient, document a basic respiratory assessment and place all the appropriate orders listed below. If the patient needs additional services, the Respiratory Care Provider (MOTOR VEHICLES INSPECTOR) will consult with the ordering provider. The MOTOR VEHICLES INSPECTOR will complete this order after completing documentation and/or placing protocol Orders. 2. RT41 - (RT)RT Assess and Treat: Adult bronchodilator, airway clearance and hyperinflation management by RCPs per protocol. This order completes with discontinuation. The protocol will be placed in the patient???s medical record. 3. QR9522 - MECHANICAL VENT PER RT The MOTOR VEHICLES INSPECTOR will consult with the ordering physician and may place 1 or more of the following orders with the settings complete and accurate in per protocol mode. The MOTOR VEHICLES INSPECTOR will complete this order after completing documentation and/or placing orders. NICU Ventilator = SP2933 - (RT)Ventilator - Infant RT2 Weaning protocol RVR (RT) could also be started under one of the following names: RT2 - Ventilator Liberation Protocol RT2 - Ventilator Management & Liberation for Post-Op CABG & Valve Replacement Protocol RT2 - PEEP Titration Protocol 4. BiPAP could be managed with any of the following orders. CK9023 - (RT)Mechanical Ventilation, Non-Invasive EX2875 - (RT)Nasal Respiratory Support - Infant RT29 - (RT)NPPV BiPAP with Face Mask 5. CPAP could be managed with any of the following orders: RT10 - (RT)CPAP Treatment - Face mask RW9725 - (RT)CPAP - Nasal Prongs Many providers and clinicians use BiPAP and CPAP synonymously. BiPAP and CPAP orders can be modified to reflect the appropriate order using scope of practice. 6. RT7-Chest Physiotherapy(RT) and RT47 - Bronchial Hygeine Treatment and VR3627-Ipbrqsyk Mucous Clearance could be used interchangeably and could allow the RT to place one of the orders above to better clarify the actual therapy Provided. 7. LY1441 - (RT)Oxygen via Device to keep O2 SATS above 92% and KR9624 - (RT)Oxygen via device to keep O2 SATS between 85% and 92% The patients care team will deliver Oxygen to patient to maintain SATS as set in the order. The patient care team will also use this order to wean O2. The MOTOR VEHICLES INSPECTOR may place 1 or more of the following orders with the settings complete and accurate in per protocol mode. RT51 - Oxygen, Nasal Cannula(RT) RT52 - Oxygen, Oxymizer RT53 - Oxygen, Ventimask (RT) RT54 - (RT)High Humidity HighFlow Oxygen RT56 - (RT) Oxygen, Aerosol mask RT59 - (RT) Oxygen, Face tent RT61 - (RT) Oxygen, Cube/Pod RT64 - Oxygen, Nonrebreather mask (RT) RT66 - (RT) Oxygen Trach collar RT67 - (RT) Oxygen,T-Piece RT68 - (RT) Oxygen, Trans-Tracheal (TTO) 8. Workflow Orders: There are orders within [facility] that are used almost exclusively to drive workflow management functions. The MOTOR VEHICLES INSPECTOR may place the following orders in scope of practice mode if needed for workflow management. RT36 - DEMO or Evaluate pt aerosol device (RT) RT38 - Nebulizer Continuous (RT) if medication is ordered RT39 - Nebulizer Tx Intermittent(RT) if medication is ordered QJ9978 - (RT) RT Trach Care LN4165 - (RT) Metered Dose Inhaler if medication is ordered HC2197 - (RT)Ventilator Checks RT24 - (RT)Intubation RT23 - (RT)Extubation OZ1707 - Cap trach (RT) VZ2302 - Speaking Valve (RT) 9. Synonymous Orders: There are orders within EPIC that mean the same to Respiratory Therapy but one order is functionally better for workflow or reporting. The MOTOR VEHICLES INSPECTOR may DC the Original Order and place the synonymous order in scope ofpractice mode. List of synonymous orders Original Order = Synonymous Order RT15 - (RT)Bedside Spirometry = PFT26 - Pulmonary Function Test - Bedside EY0805 - Ambulation by respiratory care(RT) = ID29-Nfaj O2 Eval (desaturation screen)(RT) 10. Orders in Scope of Practice Mode: Scope of Practice ordering mode is used when there is a signed order by a physician and the order is being transcribed into Epic by another clinician. Three MOTOR VEHICLES INSPECTOR examples: A. A patient presents a written script for outpatient pentamidine treatments. The MOTOR VEHICLES INSPECTOR may place theorder TJ9251 - (RT) Pentamidine Treatment in Scope of practice mode. B. The ordering provider enters an order for 2.5mg Albuterol Q4Resp and places in the comments of the order to ???Administer via Hand Held Nebulizer?? . The MOTOR VEHICLES INSPECTOR may place the order RT39 - (RT) Nebulizer treatment intermittent with the frequency of Q4Resp in Scope of practice mode. C. The ordering provider enters the order RT25 - (RT) Mechanical Ventilation and places in the comments of the order ???PEEP Titration Protocol?? . The MOTOR VEHICLES INSPECTOR may place the order RT2 - (RT) PEEP Titration Protocolin Scope of practice mode.Work of Breathing Assessment OXYGENATION ASSESSMENT documented in this encounter H&P Notes * Stone Mahajan MD - 11/17/2024 1:47 PM CDT CRITICAL CARE MEDICINE/NEUROCRITICAL CARE NOTE Grady Barrett NP 11/17/2024 2:51 PM Admit Date: 11/17/2024 LOS: 0 days History : June Faustin is a 59 y.o. female admitted 11/17/2024 for concerns of acute chest pain over her left chest. The patient was visiting family (from [place], [place]), when last evening (11/16) she endorsed left chest pain that radiated to her back and under her right breast. She was brought to OSH ER. While at OSH ER: Her initial workup demonstrated a Left Inferior lobular PE with heart strain. She was given Lovenox (1mg/kg) initially and then started on a Heparin GTT. Other OSH concerns were WBC 12, D-Dimer 1.94. UA with LE 2+. CT abdomen with colitis. She is being transferred for further management on her PE and a cardiovascular workup. PMH/PSH:CVA (05/2024), HTN, HLD, RA, COPD, Intracranial Aneurysm, Fibromyalgia, and Heart Mass Social History Tobacco Use Smoking status: Not on file Smokeless tobacco: Not on file Substance Use Topics Alcohol use: Not on file No family history on file. ROS: Endorsed: Chest pain, chronic Right sided weakness, speech difficulties. Denies: N/V/D recent sick contacts. 24 hour events/Subjective : Alert and oriented. Mild dysphagia noted. Right-sided weakness noted at baseline. Started on heparin drip. Initial PTT 35. Echo with no RV dilation or strain. Started on antibiotics for UTI/colitis. Increase diet and activity. Transferred to stepdown. Discussed with patient. All questions answered. Data : Physical examination There were no vitals taken for this visit. No data recorded. Continuous Infusions: No intake/output data recorded. Neurological: LOC: Alert, Mild expressive aphasia noted, with mild disruption in fluency. CN's: intact, PERRL, EOMI Motor/Sensory: Chronic Right Upper an lower extremity weakness, Mild right facial droop. HEENT: Neck: supple, no JVD Lines: PIV Pulmonary: Lungs: CTA B Cardiovascular: Heart: RRR, s1 s2 present ECG: NSR Gastrointestinal: Abdomen: soft, NT, ND, BS hypoactive Skin: Appearance: normal skin color, peripheral pulses and cap refill Extremities: Edema: No SCD's: NO Current I/O, Lab and Radiographic data was reviewed. Assessment and Plan: Neuro/Psych: Hx of Recent CVA Left Hemispheric: Residual Right Hemiplegia that has improved over the last few months Mild Expressive Aphasia still noted with mild fluency disruption Continue aspirin and Lipitor. Reported Brain Aneurysm per patient spouse Cardiovascular/Fluids: Hx of Left Apical Cavity Lesion: Follow up outpatient. Known, follows at [facility] in [place], [place] with Dr. Martel Hx of HTN/HLD: Continue statins. Echo with EF 70%. Pulmonary: Acute left Inferior Pulmonary Embolism: Unclear etiology but need to rule out DVT in the setting ofimmobility/right-sided weakness. OSH CTA with left inferior PE. Continued heparin drip. Echo with no clear evidence of RV strain. Check venous Dopplers. Continue to monitor. Hx of COPD: Supportive Care, PRN nebs GI/NUT: Acute sigmoid colitis: Possibly from diverticulosis and constipation. Continue on antibiotics for short course. Constipation: Aggressive bowel regimen. Incidental Hiatal hernia on CT Nutrition: Regular diet. Bowel regimen: MiraLAX and senna S. Renal/LYTES/Acid-Base: RILEY/ATN: OSH Cr 1.1 -> 0.86. Continue to monitor. Continue with aggressive hydration. Metabolic acidosis: Lactic 1.1. Replace lytes prn. Infectious Disease: UTI: UA at OSH with LE 2+. Patient with dysuria. Continue ceftriaxone for 5-day course. Hem/Onc/Coag: No acute process Endocrine: Hx of T2DM BG control- goal 110-180, SSI/accuchecks Musculoskeletal/Skin: Right Hemiparesis as above Skin care per nursing Trauma/Other: Hx of RA and Fibromyalgia PT/OT ICU Standards Of Care: Shaw/lines: PIV's VTE PPx: Heparin SUPPx: none Physical Therapy/Activity: PT/OT when appropriate Code Status Full Code Family Communication: 11/17/2024 - Discussed POC with Significant other. Critical Care Time: 45 minutes.. This did not include any time performing procedures or time spent by an CHUCK. Stone Mahajan MD, 11/17/2024 5:20 PM documented in this encounter Consult Notes * Dedrick Valadez MD - 11/18/2024 8:47 PM CDTAssociated Order(s): IP CONSULT TO PULMONOLOGY Inpatient Pulmonary Consult Patient Name: June Faustin 1965 Attending Physician:Mauro Fuentes* Primary Care Physician: No primary care provider on file. Date of Admission: 11/17/2024 Date of Service: 11/18/2024 Impression(s): Acute hypoxemic respiratory failure History of left hemispheric CVA/reported previous aneurysm Reported COPD (home medication Anoro)-not in exacerbation Atrial fibrillation with rapid ventricular response Recommendation(s): Continuing primary rate control strategy Continue unfractionated heparin until more certainty regarding potential cardioversion From pulmonary risk perspective and preserved RV function etc. can be started on NOAC at any time If tachycardia sensitive may de-escalate COPD medication to Incruse (LAMA alone) TOBACCO COUNSELING She is not a tobacco/nicotine user. [facility]: History obtained from patient and chart review. Pulmonary service consulted regarding pulmonary embolism. Patient transferred to [facility] from [facility], tachycardia and hypoxemia accompanying identification of pulmonary embolism. She is on unfractionated heparin infusion and diltiazem infusion. Not known history of previous pulmonary embolism. I personally reviewed patient's medical histories medications, surgical hx, family hx, social hx and allergies Past Medical Hx: Previous CVA/reported cerebral aneurysm Past Surgical Hx: No past surgical history on file. Family Hx: No family history on file. Social Hx: Social History Substance and Sexual Activity Alcohol Use Not on file Social History Substance and Sexual Activity Drug Use Not on file Social History Tobacco Use Smoking Status Not on file Smokeless Tobacco Not on file Allergies: No Known Allergies Medications: No current facility-administered medications on file prior to encounter. Current Outpatient Medications on File Prior to Encounter Medication Sig Dispense Refill baclofen (LIORESAL) 10 mg tablet Take 10 mg by mouth daily at bedtime. umeclidinium-vilanteroL (Anoro Ellipta) 62.5-25 mcg/actuation Disk with Device Take 1 Puff by inhalation daily. leflunomide (ARAVA) 20 mg Tablet Take 20 mg by mouth daily. losartan (COZAAR) 100 mg tablet Take 100 mg by mouth daily. atorvastatin (LIPITOR) 80 mg tablet Take 80 mg by mouth daily. metFORMIN (GLUCOPHAGE) 500 mg tablet Take 500 mg by mouth daily with breakfast. FLUoxetine (PROzac) 20 mg tablet Take 20 mg by mouth daily. Physical Examination: Vitals: 11/18/24 1600 11/18/24 1700 11/18/24 1800 11/18/24 1905 BP: (!) 93/59 (!) 90/61 (!) 91/60 BP Location: Patient Position (BP): Pulse: (!) 101 Resp: 16 18 23 24 Temp: TempSrc: SpO2: 95% Weight: Height: 11/17 0700 - 11/18 1859 In: 2640.6 [P.O.:100; I.V.:2540.6] Out: 600 [Urine:600] Middle-age female appearing older than age Aphasia/dysarthria Irregular heart rate, tachycardic Breath sounds without rhonchi or wheeze Minimal edema no clubbing or peripheral cyanosis Awake alert interactive Data Reviewed: All labs and radiology listed were personally reviewed Labs: Personally reviewed, selected laboratory for MDM: Anemia Sodium 130 Bicarb 19 Radiology reviewed and interpreted personally Radiology: I personally reviewed films. Results for orders placed or performed during the hospital encounter of 11/17/24 XR CHEST PA OR AP 1 VW Narrative EXAMINATION: XR CHEST PA OR AP 1 VW DATE: 11/17/2024 3:46 PM HISTORY: Pain; pulmonary embolism COMPARISON: No prior study is available for comparison at the time of this dictation. FINDINGS: There is probable bibasilar atelectasis. There is no large pleural effusion or pneumothorax. The cardiomediastinal silhouette is normal. The visible bony thorax is intact. Impression IMPRESSION: 1. Bibasilar atelectasis. DICTATION LOCATION: Location 4 No results found for this or any previous visit. No results found for this or any previous visit. PFTs personally interpreted: No pulmonary function testing Cardiology: Ejection fraction preserved, RV preserved Dedrick Valadez MD PharmD [facility] Pulmonary Office: [phone] * Festus Bo MD - 11/18/2024 10:29 AM CDTAssociated Order(s): IP CONSULT TO ELECTROPHYSIOLOGY Electrophysiology Consult Note Date of Consult: 11/18/2024 Date of Admission: 11/17/2024 Hospital Day: 2 Patient's Primary Care Physician: No primary care provider on file. Physician Requesting Consult: Dr Wade Reason for Consultation: AFIB RVR Chief Complaint/History of Present Illness 59 y.o. female with CVA (05/2024), RA, COPD, HTN, DM2, and HLD. Recent left hemispheric CVA with lingering Rt hemiplegia and expressive aphasia that are slowly improving. Pt report from , patient has brain aneurysm . Admitted 11/17/24 as a transfer from OSH ED for CP and acute pulmonary embolism. Started on heparin gtt. Initially in ICU for resp failure and now transferred to step down. Admit ECG showed NSR with RBBB. TTE 11/17 showed LVEF 70-75%, normal RV size/SF, normal LA size. This AM she went into AFIB RVR.ECG shows AFIB RVR 173 bpm with RBBB. Dilt gtt was ordered and EP is consulted. On tele she remains in AFIB RVR 140-160s. On Dilt gtt @ 10. She reports tachypalpitations and dyspnea. On 6 L O2 by NC. No past medical history on file. No past surgical history on file. Social History Tobacco Use Smoking status: Not on file Smokeless tobacco: Not on file Substance Use Topics Alcohol use: Not on file No family history on file. No Known Allergies Current Outpatient Medications Medication Instructions atorvastatin (LIPITOR) 80 mg, DAILY baclofen (LIORESAL) 10 mg, DAILY AT BEDTIME FLUoxetine (PROZAC) 20 mg, DAILY leflunomide (ARAVA) 20 mg, DAILY losartan (COZAAR) 100 mg, DAILY metFORMIN (GLUCOPHAGE) 500 mg, DAILY WITH BREAKFAST umeclidinium-vilanteroL (Anoro Ellipta) 62.5-25 mcg/actuation Disk with Device 1 Puff, DAILY Review of Systems: The pertinent positives and negatives are mentioned in the HPI. All other systems were reviewed andare negative. Physical Exam BP (!) 149/89 (BP Location: Right arm, Patient Position (BP): Supine) Pulse (!) 103 Temp 99.3 ??F (37.4 ??C) (Oral) Resp 19 Ht 5' 5 (1.651 m) Wt 68.9 kg (152 lb) SpO2 98% BMI 25.29 kg/m?? General: alert, non distressed HEENT: NCAT, MMM Neck: supple, no JVD CV: tachycardic, Irregularly irregular rhythm, no prominent murmur Pulm: unlabored, CTAB Abdomen: Soft, NTTP Ext: WWP, No LE edema Neuro: grossly non focal Psych: appropriate Lab Data Review Lab Results Component Value Date/Time WBC 6.6 11/18/2024 05:51 AM HGB 10.1 (L) 11/18/2024 05:51 AM HCT 33.3 (L) 11/18/2024 05:51 AM PLT 161 11/18/2024 05:51 AM MCV 79.5 (L) 11/18/2024 05:51 AM Lab Results Component Value Date/Time NA 130 (L) 11/18/2024 05:51 AM K 4.3 11/18/2024 05:51 AM CL 100 11/18/2024 05:51 AM CO2 19 (L) 11/18/2024 05:51 AM CA 8.2 (L) 11/18/2024 05:51 AM BUN 5 (L) 11/18/2024 05:51 AM CREAT 0.80 11/18/2024 05:51 AM GLUCOSE 215 (H) 11/18/2024 05:51 AM ANIONGAP 11 11/18/2024 05:51 AM Lab Results Component Value Date/Time MG 1.8 11/18/2024 05:51 AM Assessment/Plan # New onset AFIB with RVR # Acute pulmonary embolism # H/o stroke 05/2024 Acutely recommend rate control. Continue diltiazem gtt and uptitrate as BP permits. Goal HR <110bpm. Can give digoxin 250 mcg IV now and again in 6 hrs if rates remain uncontrolled. If she sustains AFIB and does not convert out would consider YISEL/CV tomorrow pending her O2 needs and ability to tolerate 30 days uninterrupted OAC. CHADSVASC at least 5. She is on heparin gtt per primary. Unclear h/o reported brain aneurysm by her spouse. Will defer timing of transition to DOAC to primary service. D/w hospitalist. Will plan for neuro imaging once RVR is controlled. Check TSH I would like to thank you for allowing me to participate in this patient's care, if you have any questions regarding their consultation today please do not hesitate to contact me at any time. Festus Bo MD Cardiac Orderly [facility] [address] [facility], [address] [place] [address] * Mauro Fuentes MD - 11/18/2024 7:50 AM CDT [facility] Hospitalist Consult Note Patient Name: June Faustin Consult requested by Mauro Fuentes* Date of Admission: 11/17/2024 Date of Service: 11/18/2024 Recommendations: Acute hypoxic respiratory failure-currently on 4 L oxygen nasal cannula Chest pain-improving Tachycardia-improving Acute left inferior pulmonary embolism Continue heparin drip Echocardiogram-with ejection fraction 70% and without heart strain Check venous Dopplers-right common femoral vein nonocclusive thrombus Pulm consultation Afib with RVR New onset Start diltiazem drip Dig as needed Discussed with EP Left apical cavity heart lesion Follow-up outpatient History of COPD without exacerbation Continue nebulizers, inhalers, ICS, supportive care Acute sigmoid colitis As seen on CT GI PCR panel Empiric antibiotics ongoing-ceftriaxone, metronidazole Acute cystitis with hematuria Obtain urinary cultures Continue ceftriaxone Type 2 diabetes Accu-Cheks, SSI, titrate as needed RILEY-improved Baseline creatinine 0.86 S/p hydration Continue to monitor Hyponatremia Hypophosphatemia Acidosis Corrected for hyperglycemia Fluids and replace electrolytes Anemia, microcytic No obvious bleed Continue to monitor hemoglobin Iron panel Hypertension Hyperlipidemia History of CVA with right-sided hemiparesis/aphasia History of reported brain aneurysm Supportive care Skin precautions Continue aspirin, statin Will need MRI to establish about aneursym as she needs AC History of fibromyalgia Rheumatoid arthritis Supportive care, pain control Therapy eval's 75 minutes were spent reviewing chart, images, labs, HPI, previous history, coordinating care with team, formulating plan and in providing direct care to patient Plan discussed with patient; questions answered; patient agrees with current plan. Current Code Status: Full Code This patient was admitted under Inpatient: Based upon the patient's clinical condition and documented clinical information, the patient is expected to require hospital care that crosses 2 midnights or more. Reason for Consultation: Chest pain HPI: Patient is a 59 y.o. with reported past medical history of CVA with residual right-sided weakness-intracranial aneurysm in May 2024, hypertension, hyperlipidemia, COPD on room air, rheumatoid arthritis, fibromyalgia, reported mass in the heart who presents for chest pain radiated to her back and under her right breast. She initially presented to OSH ER, she was then transferred to the intensive care unit, now in stepdown unit. Since this morning, reports ongoing chest discomfort and abdominal discomfort. Reports no BM in 3 days. Oriented to self and place. HR noted to be high, afib on EKG. Physical Exam BP (!) 149/89 (BP Location: Right arm, Patient Position (BP): Supine) Pulse (!) 103 Temp 99.3 ??F (37.4 ??C) (Oral) Resp 19 Ht 5' 5 (1.651 m) Wt 68.9 kg (152 lb) SpO2 98% BMI 25.29 kg/m?? Body mass index is 25.29 kg/m??. General: alert, cooperative, in NAD Lungs: CTAB, good air movement, no wheezing CV: RRR Abdomen: soft, non tender, non distended. Neuro: moves all extremities well; CN 2-12 intact Database: UA result (most recent): Lab Results Component Value Date/Time PHUA 5.0 11/17/2024 06:11 PM SGUR >1.035 (H) 11/17/2024 06:11 PM URINELEUKOC 2+ (A) 11/17/2024 06:11 PM NITRITEUA Negative 11/17/2024 06:11 PM KETONEURINE Negative 11/17/2024 06:11 PM PROTEINUA Negative 11/17/2024 06:11 PM GLUUA 2+ (A) 11/17/2024 06:11 PM BLOODUA 1+ (A) 11/17/2024 06:11 PM WBCU 3-5 (A) 11/17/2024 06:11 PM RBCUA 3-5 (A) 11/17/2024 06:11 PM BACTERIAUA 1+ (A) 11/17/2024 06:11 PM UREPITHELIAL 0-5 11/17/2024 06:11 PM CBC result (most recent): Lab Results Component Value Date/Time WBC 6.6 11/18/2024 05:51 AM HGB 10.1 (L) 11/18/2024 05:51 AM HCT 33.3 (L) 11/18/2024 05:51 AM PLT 161 11/18/2024 05:51 AM MCV 79.5 (L) 11/18/2024 05:51 AM BMP result (most recent): Lab Results Component Value Date/Time NA 130 (L) 11/18/2024 05:51 AM K 4.3 11/18/2024 05:51 AM CL 100 11/18/2024 05:51 AM CO2 19 (L) 11/18/2024 05:51 AM CA 8.2 (L) 11/18/2024 05:51 AM BUN 5 (L) 11/18/2024 05:51 AM CREAT 0.80 11/18/2024 05:51 AM GLUCOSE 215 (H) 11/18/2024 05:51 AM ANIONGAP 11 11/18/2024 05:51 AM Narrative/Impression for recent Imaging results: US LOW EXT JOE DUPLEX COMP BILAT Result Date: 11/17/2024 Duplex imaging of the bilateral lower extremities DATE: 11/17/2024 11:13 PM. CLINICAL HISTORY: Pulmonary embolus. Rule out deep venous thrombosis. Rule out deep venous thrombosis. TECHNIQUE: Real-timesonography of the lower extremities is performed in transverse and longitudinal views. Spectral andcolor Doppler imaging are additionally used. FINDINGS: Doppler signals are obtained from the upper saphenous, common femoral, the proximal, mid and distal femoral, proximal profunda, popliteal and posterior tibial/peroneal veins. The venous thrombosis is evident in the right common femoral vein. This vein is incompletely compressible. The veins of the right lower extremity and the base of the left lower extremity are otherwise free of intraluminal thrombus. IMPRESSION: 1. Thrombus in the right common femoral vein that is incompletely occlusive. INCIDENTALFINDINGS: None. DICTATION LOCATION: [address] ECHOCARDIOGRAM W/ CONTRAST AGENT Result Date: 11/17/2024 Transthoracic Echocardiogram Patient: June Faustin Study ID: [id number] Gender: F : 1965 Age: 59 Race: MEAGAN Height 165.1cm Study Date: 11/17/2024 Weight: 67.1kg Access. #: [id number] BP: 122 / 76 *Referring Physician:* Grady Barrett *Ordering Physician:* Grady Barrett *Hydroelectric Plant Electrical Engineer:* SKY Gore safety and skill based pay manager: Nurse: Indications: Acute PE. History: PMH: No prior cardiac history. -------- STUDY CONCLUSIONS: SUMMARY: - Procedure narrative: A transthoracic echocardiogram was performed. Image quality was technically difficult, The study was technically limited due to poor acoustic window availability. Scanning was performed from the parasternal, apical, and subcostal acoustic windows. Intravenous contrast (Definity) was administered to enhance endocardial border detection that was not seen in two consecutive segments due to suboptimal baseline images and opacify the LV. - Left ventricle: The cavity size was normal. Wall thickness was normal. Global systolic function is hyperdynamic. The estimated ejection fraction is 70-75%. For Epic reporting: the left ventricular ejection fraction is 70% . - Left atrium: The atrium is normal in size. - Right ventricle: The cavity size is normal. Systolic function is normal. Suboptimally seen but appears normal in size and function. - Right atrium: The estimated right atrial pressure is 5mm Hg. ------ Cardiac Anatomy: LEFT VENTRICLE: The cavity size was normal. Wall thickness was normal. Global systolic function is hyperdynamic. The estimated ejection fraction is 70-75%. For Epic reporting:the left ventricular ejection fraction is 70% . AORTIC VALVE: Structurally normal valve. Trileaflet. No significant regurgitation. The mean systolic gradient is 6mm Hg. The peak systolic gradient is 10mm Hg. The LVOT to aortic valve VTI ratio is 1.12. The valve area is 3.2cm^2. The ratio of LVOT toaortic valve peak velocity is 0.98. AORTA: Aortic root: The root is normal-sized. MITRAL VALVE: Structurally normal valve. No significant regurgitation. The mean diastolic gradient is 2mm Hg. The peak diastolic gradient is 4mm Hg. LEFT ATRIUM: The atrium is normal in size. RIGHT VENTRICLE: The cavity size is normal. Systolic function is normal. PULMONIC VALVE: Structurally normal valve. No significant regurgitation. TRICUSPID VALVE: Structurally normal valve. No significant regurgitation. RIGHT ATRIUM: The atrium was normal in size. The estimated right atrial pressure is 5mm Hg. SYSTEMIC VEINS: Inferior vena cava: The IVC is normal-sized. PERICARDIUM: A trivial pericardial effusion is identified. Measurements Left ventricle Value Ref IVS, ED, LAX (H) 1.2 cm 0.6 - 0.9 MARIANA, LAX (L) 2.7 cm 3.8 - 5.2 MARIANA/bsa, LAX(L) 1.6 cm/m^2 2.3 - 3.1 IVS, ED (H) 1.2 cm 0.6 - 0.9 PW, ED (H) 1.1 cm 0.6 - 0.9 EDV, 2-p (N) 95 ml 46 - 106 ESV, 2-p (N) 26 ml 14 - 42 EF, 2-p (N) 73 % 54 - 74 SV, 2-p 69 ml --------- SV/bsa, 2-p 39.8 ml/m^2 --------- E', med carl, TDI (N) 7.2 cm/sec >=7.0 E/e', med carl, TDI 14 --------- LVOT Value Ref Diam, S 1.9 cm --------- Area 2.8 cm^2 --------- Peak kisha, S 1.56 m/sec --------- VTI, S 29.7 cm --------- Peak grad, S 10 mm Hg --------- Right ventricle Value Ref MARIANA minor ax, A4C base (N) 3.4 cm 2.5 - 4.1 MARIANA minor ax, A4C mid (N) 2.7 cm 1.9 - 3.5 MARIANA major ax, A4C (N) 8.0 cm 5.9 - 8.3TAPSE, MM (N) 1.8 cm >=1.7 S' lateral (N) 11.7 cm/sec >=9.5 Left atrium Value Ref AP dim, ES (N) 3.5 cm 2.7 - 3.8 AP dim index, ES (N) 2.0 cm/m^2 1.5 - 2.3 SI dim, A4C 5.1 cm --------- Area ES,A4C (N) 14 cm^2 <=20 Area/bsa ES, A4C 8.28 cm^2/m^2 --------- SI dim, A2C 3.8 cm --------- SI dim, shorter 3.8 cm --------- Vol, ES, 1-p A2C (N) 26 ml 22 - 52 Vol/bsa, ES, 1-p A2C (N) 15 ml/m^2 13 - 40 LA/Ao root ratio 1.06 --------- Right atrium Value Ref SI dim, ES, A4C (N) 4.6 cm 3.4 - 5.3SI dim/bsa, ES, A4C (N) 2.6 cm/m^2 1.9 - 3.1 Area, ES, A4C (N) 12 cm^2 10 - 18 Vol, ES, 1-p A4C 24 ml --------- Vol/bsa, ES, 1-p A4C (N) 14 ml/m^2 9 - 33 Aortic valve Value Ref Peak v, S 1.6 m/sec --------- Mean v, S 1.09 m/sec --------- VTI, S 26.5 cm --------- Mean grad, S 6 mm Hg --------- Peakgrad, S 10 mm Hg --------- LVOT/AV, VTI ratio 1.12 --------- KATHERYN, VTI 3.2 cm^2 --------- KATHERYN/bsa, VTI 1.83 cm^2/m^2 --------- LVOT/AV, Vpeak ratio 0.98 --------- KATHERYN, Vmax 2.7 cm^2 --------- KATHERYN/bsa, Vmax 1.55 cm^2/m^2 --------- Mitral valve Value Ref Peak E 0.98 m/sec --------- Peak A 1.05 m/sec--------- Mean grad, D 2 mm Hg --------- Peak grad, D 4 mm Hg --------- Peak E/A ratio 0.9 --------- Pulmonic valve Value Ref Peak v, S 1.1 m/sec --------- Peak grad, S 5 mm Hg --------- Tricuspid valve Value Ref Peak E 0.57 m/sec --------- Aortic root Value Ref Root diam, 3.3 cm --------- Ascending aorta Value Ref AAo AP diam, S 3.5 cm --------- AAo AP diam/bsa, S 2.0 cm/m^2 --------- Systemic veins Value Ref Estimated RA pressure 5 mm Hg --------- Legend: (L) and (H) andrew values outside specified reference range. (N) patino values inside specified reference range. Procedure data: [facility] No prior study was available for comparison. Study status: Stat. Procedure information: A transthoracic echocardiogram was performed. Image quality was technically difficult, The study was technically limited due to poor acoustic window availability. Scanning was performed from the parasternal, apical, and subcostal acoustic windows. Intravenous contrast (Definity) was administered to enhance endocardial border detection that was not seen in two consecutive segments due to suboptimal baseline images and opacifythe LV. Transthoracic echocardiogram. Complete 2D, complete spectral Doppler, and color Doppler. Jannette ges were not appropriate for strain imaging. Birthdate: Patient birthdate: 1965. Age: Patientis 59year(s) old. Sex: gender: female. Height: 165.1cm. 65in. Weight: 67.1kg. 148lb. Body mass index: 24.6kg/m^2. Body surface area: 1.74m^2. Heart rate: 88bpm. Blood pressure: 122/76 Patient status: Inpatient. Study date: Study date: 11/17/2024. Study time: 02:40 PM. Location: ICU/CCU Prepared and Electronically Authenticated Filiberto Mckeon M.D. [id number] XR PRIOR STUDY Result Date: 11/17/2024 This exam was auto finalized to allow images to be scanned to PACS. XR CHEST PA OR AP 1 VW Result Date: 11/17/2024 EXAMINATION: XR CHEST PA OR AP 1 VW DATE: 11/17/2024 3:46 PM HISTORY: Pain; pulmonary embolism COMPARISON: No prior study is available for comparison at the time of this dictation. FINDINGS: There is probable bibasilar atelectasis. There is no large pleural effusion or pneumothorax. The cardiomediastinal silhouette is normal. The visible bony thorax is intact. IMPRESSION: 1. Bibasilar atelectasis. DICTATION LOCATION: Location [address] CT PRIOR STUDY Result Date: 11/17/2024 This exam was auto finalized to allow images to be scanned to PACS. CT PRIOR STUDY Result Date: 11/17/2024 This exam was auto finalized to allow images to be scanned to PACS. CT PRIOR STUDY Result Date: 11/17/2024 This exam was auto finalized to allow images to be scanned to PACS. Thank you for the courtesy of this consult. We will follow along with you. Mauro Fuentes MD [facility] Hospitalist Available via secure chat 7a-7p After hours please place contact e-Ticket through the [employer] tab in [place]. 75 minutes were spent reviewing chart, images, labs, HPI, previous history, coordinating care with team, formulating plan and in providing direct care to patient At least part of this note was dictated using Dragon Dictation. Please excuse any typographical errors documented in this encounter Miscellaneous Notes * Care Plan - Sarah Coles MSW - 11/18/2024 2:46 PM CDT Care Management Initial Assessment Initial Discharge Planning Assessment completed. Discussed Care Management's role and Discharge planning. Plan Discharge To: Home with family assist Does the patient have family and/or a caregiver that is willing, able and available to assist if needed? Yes - Name/Relation:Claudio, spouse Comments: The patient was admitted with SOB. Patient Discharge Planning Goal: Home with spouse Patient will potentially discharge to a SNF/NH? No Care Management visited with: patient and spouseBrian via in person. Prior to admission, patient resides at: own home. Patient resides in a 1 story home with ramp stairs to enter. Patient's bedroom and bathroom are located on the main floor. Prior to admission, living arrangements: spouse. Prior to admission, patient's functional level:requires assistance; uses cane and quad cane for mobility; needs assistance with iADLs: transportation, shopping, running errands, medication management, and housekeeping Community Ambulator: no Prior to admission, the patient has the following DME? Yes cane, quad cane, shower chair, wheelchair, and grab bars Services in the home/community: none Serviced by Receives hemodialysis? No Emergency contact(s): Extended Emergency Contact Information Primary Emergency Contact: CLAUDIO FAUSTIN Mobile Relation: Spouse Secondary Emergency Contact: LAWSONJUAN DAVID Mobile Relation: Son Prescription coverage: yes Preferred Pharmacy verified: [facility] [address] [place] [id number] Insurance coverage verified: Payor: MEDICAID / Plan: MEDICAID [place] / Product Type: Medicaid / Secondary Insurance:N/A Medicaid Status: no spend down Has VA Benefits: no Employment Status: not employed PCP verified as: No primary care provider on file. Patient has not had a stay at an acute care hospital in the last 30 days. Recent Falls?: Plan for transportation at discharge: spouse Care Management contact information provided. Care Management will continue to follow and assist asneeded. Problem: Discharge Planning Goal: Identify discharge needs upon admission and through discharge Description: Outcome: Progressing * Therapy Evaluation - Heather Preciado ORTHODONTIC BAND MAKER - 11/18/2024 12:03 PM CDT Speech Therapy- Swallow Evaluation Room: [address] [place] [address] Patient: June Faustin Date of : 1965 Length Of Stay: 1 [employer]OD[employer]AND [employer] Posted Swallowing Guidelines Foods: Level 7 Regular and Level 7 Easy to Chew Liquids: Thin/ Level 0 Medications: with Water Level of supervision: Intermittent Aspiration Precautions: Sit Up Straight, Slow Rate, Sit Up After Meals, and Head of Bed 30 Degrees of Higher Precautions Posted: Not applicable Recommendation Recommendations: No follow up required ST Frequency: Therapy Plan of Care: eval only Speech Evaluation Time Speech Evaluation Start Time: 1141 Speech Evaluation Stop Time: 1152 Speech Evaluation Total Minutes: 11 Precautions: contact isolation No past medical history on file. No past surgical history on file. 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 Speech is clear, fluent and intelligible. Velum wfl Mandible: wfl Vocal Quality: normal Vocal Intensity: no impairment Consistencies Assessed Pt seen b/s this AM for ST with significant other. Pt and family deny current difficulty swallowinghowever mild dysphagia initially post CVA. Oral mechanism reveals minimal right labial pull howeverdoes not interfere with speech intelligibility. Pt pleasantly declines puree trials. She manages repeat presentations of ice chips, thin liquids via small and large straw and dry solids without overts/s of aspiration. Upper dentures in place. Pt is able to gum and clear solids with a thin liquid wash while maintaining clear vocal quality. Continue a general diet with thin liquids. Aspiration is not suspected at this time. Encourage intake. No further ST indicated. Therapy Prognosis Prognosis: Good Prognosis Considerations: Age, Family/Community Support, Participation Level, Potential, Previous Level of Function, and Severity of Impairments Patient/Family involved in goal setting: yes End of session: Chair/bed alarm in place and activated: yes Call light within reach: yes Nursing notified of patient status: yes Patient will continue with above plan of care unless discharged or has change in status. Plan of care developed as indicated by initial assessment and patient???s current status. Heather Preciado MS CCC-ORTHODONTIC BAND MAKER Ascom: #[phone] * Care Plan - Alyssa Small RN - 11/18/2024 6:43 AM CDT Shift Summary Thrombus in the right common femoral vein was identified during the shift. Heparin infusion rate was decreased to manage anticoagulation. PTT high. Currently on hold times one hour. Will be decreased by 3 units/kg/hr. Next PTT due at 1 PM. Glucose levels remained high throughout the shift, requiring monitoring. Basic metabolic panel indicated low sodium and high glucose levels, suggesting the need for furtherevaluation. Overall, the patient maintained stable vital signs and neurological function, with some concerns regarding fluid retention and glucose levels. Achieve optimal cognitive/perceptual/neurological function by discharge or maintain baseline function: Cognitive and perceptual functions remained stable throughout the shift, with consistent alertness and responsiveness, and no signs of delirium were observed. Achieve optimal cardiovascular function by discharge or maintain baseline function: Cardiovascular function was stable, with blood pressure and heart rate showing minor fluctuations but generally within acceptable ranges. Achieve optimal peripheral neurovascular function by discharge or maintain baseline function: Peripheral neurovascular function remained within defined limits, with consistent color and sensation in the upper extremities, though there was persistent drift in the right arm and leg. Achieve optimal respiratory function by discharge and/or maintain baseline function: Respiratory function was stable, with oxygen saturation levels consistently high, and the patient was transitionedfrom nasal cannula to room air without issue. Achieve optimal nutrition and fluid status to meet metabolic needs throughout hospitalization: Nutritional intake was adequate, but there was a slight increase in weight, indicating potential fluid retention. * Treatment Plan - Eleazar Lee, PHARMACIST - 11/17/2024 3:39 PM CDT [facility] Adult Heparin PTT Monitoring Protocol [facility] ORDERS ARE ENTERED ???PER PROTOCOL?? Enter the protocol in the patient's electronic health record using smartphrase: .rxmsheparinPTTnote PTT monitoring should be used instead of Anti-Xa monitoring for the following: Facility only has PTT lab monitoring capabilities Patients who have received a Xa inhibitor Direct Oral Anticoagulant (DOAC) medication (rivaroxaban,apixaban, edoxaban), therapeutic Enoxaparin, or Fondaparinux within the last 48 hours Nursing Orders: Heparin must be hung as primary IV on dedicated IV site, unless discussed with physician and exception is authorized Obtain an actual weight, not stated weight, for pharmacy verification Do not give IM injections unless credentialed prescriber is alerted and chooses to proceed. Exception: Patient may receive vaccinations without contacting provider. RN to hold pressure to site post administration for 2 minutes Call credentialed prescriber for any evidence of hematoma, decrease in hemoglobin of 2 gram/dL or more, or with any acute change in mental status When programming the smart pump, refer to weight in eMAR order (this may not correlate with patient's current weight) Verify weight in eMAR order matches weight in smartpump Enter actual volume infused into flowsheet directly from smart pump upon clearing the pump volume Laboratory Orders: Baseline: PTT and CBC without differential if not obtained in the last 72 hours before starting IV Heparin Infusion monitoring: Timed PTT every 6 hours after the initiation of infusion, change in rate or bolus until 2 consecutive PTT are in therapeutic range Daily once stable: PTT daily while on heparin once stable Minimum every 3 days: CBC without differential drawn at minimum of every 3 days while on heparin Medication Orders: Discontinue ALL other orders for subcutaneous or IV heparin, for example but not limited to: enoxaparin (LOVENOX), or fondaparinux (ARIXTRA) or oral anticoagulants dabigatran (PRADAXA), apixaban (ELIQUIS), edoxaban (SAVAYSA) or rivaroxaban (XARELTO). This protocol is not recommended for use with continuous alteplase infusions. Contact provider for additional orders. Pharmacist to confirm indication to ensure correct protocol table is followed, if unclear from the physician order or via chart review Pharmacist to verify heparin rate changes based on lab results in the protocol tables below. Pharmacist may update the order and MAR to match the current infusion rate. Dosing Weight: Obtain using a scale, NOT stated weight Order-specific heparin dosing weight to be calculated by pharmacist. If weight <= 100 kg, ACTUAL body weight will be used to perform dose calculations If weight exceeds 100 kg, an ADJUSTED body weight will be used to perform dose calculations Initial dosing weight to be used for the duration of therapy. Caution should be used by the RN to observe that this is the weight programmed in the smart pump. DVT/PE Heparin Infusion (usual indication for VTE: PE/DVT) Institution specific PTT goal range corresponding to an Anti-Xa level of 0.3 - 0.7 units/mL Per provider order - bolus or no bolus Adjusted body weight used for pts >100 kg Initial Bolus Dose 80 units/kg (MAX 10,000 units) Initial Infusion 18 units/kg/hour PTT (seconds) Bolus (if boluses are authorized by physician per infusion order) Hold Infusion IV infusion Change Next Level Less than 57.7 60 units/kg 0 min Increase heparin dose by 3 units/kg/hr 6 hours 57.7 - 66.3 30 units/kg 0 min Increase heparin dose by 2 units/kg/hr 6 hours 66.4 - 101.4 NO CHANGE Every 6 hours x2 then every AM 101.5 - 110.2 none 0 min Decrease heparin dose by 1 units/kg/hr 6 hours 110.3 - 118.9 none 30 min Decrease heparin dose by 2 units/kg/hr 6 hours Greater than 118.9 none 60 min Decrease heparin dose by 3 units/kg/hr 6 hours Cardiac Heparin Infusion (usual indication: Atrial fibrillation, mechanical valves, ACS, bleeding risk requiring lower starting rate) Per provider order - bolus or no bolus Institution specific PTT goal range corresponding to an Anti-Xa level of 0.3 - 0.6 units/mL Adjusted body weight used for pts >100 kg Initial Bolus Dose Atrial fibrillation, mechanical valves, recent bleeding risk: 60 units/kg (MAX 7500 units) ACS: 60 units/kg (MAX 4000 units) Initial Infusion Atrial fibrillation, mechanical valves, recent bleeding risk: 15 units/kg/hour ACS: 12 units/kg/hour (MAX 1000 units/hour) PTT (seconds) Bolus (if boluses are authorized by physician per infusion order) Hold Infusion IV infusion Change Next Level Less than 57.7 30 units/kg 0 min Increase heparin dose by 2 units/kg/hr 6 hours 57.7 - 66.3 15 units/kg 0 min Increase heparin dose by 1 units/kg/hr 6 hours 66.4 - 92.7 NO CHANGE Every 6 hours x2 then every AM 92.8 - 101.4 none 0 min Decrease heparin dose by 1 units/kg/hr 6 hours 101.5 - 118.9 none 30 min Decrease heparin dose by 2 units/kg/hr 6 hours Greater than 118.9 none 60 min Decrease heparin dose by 3 units/kg/hr 6 hours Initiating Department(s): Date: 04/2024 Department: Pharmacy Reviewed: Revised: 08/2024 Approved by: Chinmay Mcelroy, Automotive Machinist, Pharmacy and Therapeutics Committee Date: 04/19/2024 Approved by: Anabel Frias Bullion Weigher Date: 06/12/2024 Approved by: Medical Executive Committee Date: 04/23/2024 Approved by: Pharmacy & Therapeutics Committee Date: 04/19/2024 Cosigned by Stone Mahajna MD at 11/17/2024 7:08 PM CDT documented in this encounter Plan of Treatment Pending Results Name Type Priority Associated Diagnoses Date /Time GI PATHOGEN PCR PANEL Microbiology Routine 0 11/19/2024 2:54 AM CDT URINE CULTURE Microbiology Routine 6:11 PM CDT Scheduled Orders Name Type Priority Associated Diagnoses Order Schedule PT EVAL AND TREAT PT Routine ONE JASWINDER E for 1 Occurrences starting 11/17/2024 until 11/17/2024 OT EVAL AND TREAT OT Routine ONE JASWINDER E for 1 Occurrences starting 11/17/2024 until 11/17/2024 CBC WITH DIFFERENTIAL Lab Routine Daily Early Marcelo y Early until discontinued starting 11/18/2024, 2 completed OXYGEN VIA DEVICE TO KEEP O2 SAT ABOVE Respiratory Care Routine Continuous un til discontinued starting 11/17/2024 PULSE OXIMETRY, CONTINUOUS Respiratory Care Routine Continuous unti l discontinued starting 11/17/2024 BASIC METABOLIC PANEL Lab Routine Daily Early Marcelo y Early until discontinued starting 11/18/2024, 2 completed MAGNESIUM LEVEL Lab Routine Daily Ear ly Daily Early until discontinued starting 11/18/2024, 2 completed PHOSPHORUS Lab Routine Daily Early Da rajendra Early until discontinued starting 11/18/2024, 2 completed PTT Lab Stat ONE TIME for 1 Occurrences starting 11/17/2024 until 11/17/2024 NEBULIZER TX INTERMITTENT Respiratory Care Routine Resp q 6 h PRN until discontinued starting 11/17/2024 US DOPPLER VENOUS ARM BILATERAL Imaging Routine Rad Once for 1 Occurrences starting 11/17/2024 until 11/17/2024 POC GLUCOSE Point of Care Testing Routine FOUR TIMES DAILY BEFORE MEALS AND AT BEDTIME until discontinued starting 11/17/2024 GI PATHOGEN PCR PANEL Microbiology Routine ONE TIME for 1 Occurrences starting 11/18/2024 until 11/18/2024 URINE CULTURE Microbiology Routine ONE TIME for 1 Occurrences starting 11/18/2024 until 11/18/2024 MRA HEAD WO CONTRAST Imaging Routine Rad Once for 1 Occurrences starting 11/18/2024 until 11/18/2024 PTT Lab Routine ONE TIME for 1 Occurrences starting 11/19/2024 until 11/19/2024 documented as of this encounter Procedures * The patient is currently admitted. The information in this section might not be complete until the patient is discharged. Procedure Name Priority Date/Time Associated Diagnosis Comments CBC WITH DIFFERENTIAL Routine 11/19/2024 5:39 AM CDT PTT Timed Study 11/19/2024 5:39 AM CDT PHOSPHORUS Routine 11/19/2024 5:39 AM CDT MAGNESIUM LEVEL Routine 11/19/2024 5:39 AM CDT BASIC METABOLIC PANEL Routine 11/19/2024 5:39 AM CDT PTT Timed Study 11/18/2024 9:49 PM CDT POC GLUCOSE Routine 11/18/2024 8:44 PM CDT EKG 12-LEAD Routine 11/18/2024 8:04 PM CDT POC GLUCOSE Routine 11/18/2024 4:32 PM CDT PTT Timed Study 11/18/2024 1:40 PM CDT POC GLUCOSE Routine 11/18/2024 11:14 AM CDT EKG 12-LEAD Stat 11/18/2024 10:18 AM CDT POC GLUCOSE Routine 11/18/2024 7:20 AM CDT IRON, TIBC, AND PERCENT SATURATION Routine 11/18/2024 5:51 AM CDT CBC WITH DIFFERENTIAL Routine 11/18/2024 5:51 AM CDT PTT Timed Study 11/18/2024 5:51 AM CDT TSH Routine 11/18/2024 5:51 AM CDT PHOSPHORUS Routine 11/18/2024 5:51 AM CDT MAGNESIUM LEVEL Routine 11/18/2024 5:51 AM CDT BASIC METABOLIC PANEL Routine 11/18/2024 5:51 AM CDT US LOW EXT JOE DUPLEX COMP BILAT Routine 11/17/2024 11:13 PM CDT UNFRACTIONATED HEPARIN ACTIVITY Timed Study 11/17/2024 10:01 PM CDT PTT Stat 11/17/2024 10:01 PM CDT POC GLUCOSE Routine 11/17/2024 9:39 PM CDT POC GLUCOSE Routine 11/17/2024 8:45 PM CDT EXTRA TUBE Routine 11/17/2024 6:11 PM CDT EXTRA TUBE (URINE NESBITT) Routine 11/18/19 6:11 PM CDT EXTRA TUBE (URINE CONTAINER) Routine 11/17/2024 6:11 PM CDT URINALYSIS W/REFLEX MICROSCOPIC Routine 11/17/2024 6:11 PM CDT EXTRA TUBE (GREEN) Routine 11/17/2024 6: 05 PM CDT EXTRA TUBE Routine 11/17/2024 6:05 PM CDT KETONES/BETA HYDROXYBUTYRATE Routine 11/17/2024 6:05 PM CDT EKG 12-LEAD Routine 11/17/2024 4:07 PM CDT XR CHEST PA OR AP 1 VW Routine 3:46 PM CDT UNFRACTIONATED HEPARIN ACTIVITY Routine 11/17/2024 3:25 PM CDT LACTIC ACID Stat 11/17/2024 3:25 PM CDT CBC WITH DIFFERENTIAL Stat 11/17/2024 3:25 PM CDT PTT Routine 11/17/2024 3:25 PM CDT TROPONIN Routine 11/17/2024 3:25 PM CDT HEMOGLOBIN A1C Routine 11/17/2024 3:25 PM CDT LIPID PANEL Routine 11/17/2024 3:25 PM CDT COMPREHENSIVE METABOLIC PANEL Stat 11/17/2024 3:25 PM CDT ECHOCARDIOGRAM W/ CONTRAST AGENT Routine 11/17/2024 3:13 PM CDT ORTHODONTIC BAND MAKER EVALUATE AND TREAT Routine 2:59 PM CDT RT ASSESS AND TREAT Routine 11/17/2024 2 :59 PM CDT POC GLUCOSE Routine 11/17/2024 2:36 PM CDT X-RAY PRIOR STUDY Routine 11/17/2024 8:[address] PRIOR STUDY Routine 11/17/2024 8:[address] PRIOR STUDY Routine 11/17/2024 7:[address] PRIOR STUDY Routine 11/16/2024 10:05 PM CDT documented in this encounter Results * (ABNORMAL) PTT (11/19/2024 5:39 AM CDT) PTT 59.8(H) 23.1 - 37.1 seconds 11/19/2024 6:12 AM CDT [facility] [employer] Blood Venipuncture / Unknown 11/19/2024 5:39 AM CDT 11/19/2024 5:46 AM CDT us Mauro Fuentes MD HEMATOLOGY ORDERABLE S Final Result [facility] [employer] [facility] CLIA# [id number] [place] [address] * PHOSPHORUS (11/19/2024 5:39 AM CDT) PHOSPHORUS 2.5 2.5 - 4.5 mg/dL 11/19/2024 6:19 AM CDT [facility] LABORATORY [facility] Blood Venipuncture / Unknown 11/19/2024 5:39 AM CDT 11/19/2024 5:49 AM CDT [facility] [employer] CHEMISTRY ORDERABLES Final Re sult Performing Organization Address City/[facility]/ZIP Co de Phone Number [facility] CLIA# [id number] [place] [address] * MAGNESIUM LEVEL (11/19/2024 5:39 AM CDT) MAGNESIUM 1.7 1.6 - 2.6 mg/dL 11/19/2024 6:19 AM CDT [facility] Blood Venipuncture / Unknown 11/19/2024 5:39 AM CDT 11/19/2024 5:49 AM CDT [facility] [employer] CHEMISTRY ORDERABLES Final Re sult Performing Organization Address [facility]/ZIP Co de Phone Number [facility] CLIA# [id number] [place] [address] * (ABNORMAL) BASIC METABOLIC PANEL (11/19/2024 5:39 AM CDT) SODIUM 139 136 - 145 mmol/L 11/19/2024 6:19 AM CDT [facility] LABORATORY SERVICES [facility] POTASSIUM 3.5 3.4 - 5.1 mmol/L 11/19/2024 6:19 AM CDT [facility] LABORATORY [facility] CHLORIDE 106 98 - 107 mmol/L 11/19/2024 6:19 AM CDT [facility] LABORATORY [facility] CO2 17(L) 22 - 29 mmol/L 11/19/2024 6:19 AM CDT [facility] LABORATORY [facility] CALCIUM 8.2(L) 8.6 - 10.4 mg/dL 11/19/2024 6:19 AM CDT [facility] LABORATORY [facility] BUN 4(L) 6 - 20 mg/dL 11/19/2024 6:19 AM CDT [facility] CREATININE 0.76 0.51 - 0.95 mg/dL 11/19/2024 6:19 AM T [facility] GLUCOSE 139(H) 74 - 99 mg/dL 11/19/2024 6:19 AM CDT [facility] GFR >60 >=60 mL/min/1.7 3 sq meter 11/19/2024 6:19 AM T [facility] Comment:eGFR calculated with 2020 CKD-EPI equation. Vegetarian diet, extremely high or low muscle mass, and may affect results. Cystatin C with Glomerular Filtration Rate is a suitable alternative for these patients. ANION GAP 16 8 - 16 mmol/L 11/19/2024 6:19 AM T [facility] Blood Venipuncture / Unknown 11/19/2024 5:39 AM CDT 11/19/2024 5:49 AM CDT Grady Barrett NP CHEMISTRY ORDERABLES Final Re sult [facility] CLIA# [id number] [place] [address] * (ABNORMAL) CBC WITH DIFFERENTIAL (11/19/2024 5:39 AM CDT) WBC 5.7 4.0 - 9.8 K/uL 11/19/2024 6:34 AM CDT [facility] RBC 4.17 3.90 - 4.90 M/uL 11/19/2024 6:34 AM T [facility] HEMOGLOBIN 9.9(L) 11.8 - 14.8 g/dL 11/19/2024 6:34 AM CDT [facility] HEMATOCRIT 33.3(L) 35.5 - 44.0 % 11/19/2024 6:34 AM CDT [facility] MCV 79.9(L) 82.0 - 99.0 fL 11/19/2024 6:34 AM CDT [facility] LABORATORY [facility] MCH 23.7(L) 27.2 - 32.6 pg 11/19/2024 6:34 AM CDT [facility] LABORATORY [facility] MCHC 29.7(L) 31.5 - 35.5 g/dL 11/19/2024 6:34 AM CDT [facility] RDW 18.6(H) 11.5 - 14.5 % 11/19/2024 6:34 AM CDT [facility] LABORATORY [facility] RDW-STDEV 54.0(H) 37.1 - 48.7 fL 11/19/2024 6:34 AM CDT [facility] LABORATORY [facility] PLATELETS 182 140 - 350 K/uL 11/19/2024 6:34 AM CDT [facility] LABORATORY [facility] MPV 9.6 9.3 - 12.4 fL 11/19/2024 6:34 AM CDT [facility] LABORATORY [facility] NEUTROPHILS 72 % 11/19/2024 6:34 AM CDT [facility] LABORATORY [facility] LYMPHOCYTES 15 % 11/19/2024 6:34 AM CDT [facility] LABORATORY [facility] MONOCYTES 9 % 11/19/2024 6:34 AM CDT [facility] LABORATORY [facility] EOSINOPHILS 2 % 11/19/2024 6:34 AM CDT [facility] LABORATORY [facility] BASOPHILS 1 % 11/19/2024 6:34 AM CDT [facility] IMMATURE GRANULOCYTES 2 % 11/19/2024 6:34 AM CDT [facility] LABORATORY [facility] Comment:IG (Immature Granulo cyte) count includes Metamyelocytes, Myelocytes, and Promyelocytes NEUTROPHIL ABSOLUTE 4.12 1.90 - 7.00 K/uL 11/19/2024 6:34 AM CDT [facility] LABORATORY [facility] LYMPHOCYTE ABSOLUTE 0.84 0.70 - 4.50 K/uL 11/19/2024 6:34 AM CDT [facility] LABORATORY [facility] MONOCYTE ABSOLUTE 0.53 0.10 - 1.30 K/uL 11/19/2024 6:34 AM CDT [facility] LABORATORY [facility] EOSINOPHIL ABSOLUTE 0.11 0.00 - 0.70 K/uL 11/19/2024 6:34 AM CDT [facility] BASOPHILS ABSOLUTE 0.04 0.00 - 0.20 K/uL 11/19/2024 6:34 AM CDT [facility] IMMATURE GRANULOCYTES ABSOLUTE 0.09(H) 0.00 - 0.03 K/uL 11/19/2024 6:34 AM CDT [facility] Blood Venipuncture / Unknown 11/19/2024 5:39 AM CDT 11/19/2024 5:46 AM CDT Grady Barrett NP HEMATOLOGY ORDERABLES Final R esult Performing Organization Address City/[facility]/ZIP Co de Phone Number [id number] [place] [address] * (ABNORMAL) PTT (11/18/2024 9:49 PM CDT) Pathologist [facility] PTT >150.0(HH ) 23.1 - 37.1 seconds 11/18/2024 11:05 PM CDT [facility] Comment: Verified by repeat analysis. No clot Blood Venipuncture / Unknown 11/18/2024 9:49 PM CDT 11/18/2024 9:54 PM CDT Mauro Fuentes MD HEMATOLOGY ORDERABLE S Final Result [facility] [id number] [place] [address] * (ABNORMAL) POC GLUCOSE (11/18/2024 8:44 PM CDT) GLUCOSE POC 130(H) 74 - 99 mg/dL 11/18/2024 8:44 PM CDT [facility] POINT OF CARE SPECIMEN SOURCE, GLUCOSE POC Whole Blood 11/18/2024 8:44 PM CDT [facility] POINT OF CARE Blood, whole 11/18/2024 8:44 PM CDT 11/18/2024 8:51 PM CDT us Mauro Fuentes MD POINT OF CARE TESTIN Tasneem Final Result [facility] POINT OF CARE CLIA # [id number] [address] [place] [address] * EKG 12-LEAD (11/18/2024 8:04 PM CDT) 11/18/2024 8:04 PM CDT Narrative INTERFACE SYSTEM - 11/18/2024 10:37 [place] [address] Test Date: 2024-11-18 Pat Name: JUNE [facility] Department: 98 Room: [address] [place] [address] Gender: Female 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 Physician: [id number] : 1965 Requested By: PACO CertiRxKHADAR Order Number: [id number] Reading MD: Drik Carter Measurements Intervals [place] Rate: 76 P: 19 SD: 154 QRS: -20 QRSD: 124 T: 22 QT: 392 QTc: 441 Interpretive Statements Normal sinus rhythm Right bundle branch block Abnormal ECG Compared to ECG 11/18/2024 10:18:11 Right bundle-branch block now present Sinus rhythm replaced Atrial fibrillation Electronically Signed On 11-18-2024 22:37:47 CDT by Dirk Carter Procedure Note Dirk Carter MD - 11/18/2024 [place] [address] Test Date: 2024-11-18 Pat Name: JUNE [facility] Department: 98 Room: [address] [place] [address] Gender: Female 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 Physician: [id number] : 1965 Requested By: PACO CertiRxKHADAR Order Number: [id number] Reading MD: Dirk Carter Measurements Intervals [place] Rate: 76 P: 19 SD: 154 QRS: -20 QRSD: 124 T: 22 QT: 392 QTc: 441 Interpretive Statements Normal sinus rhythm Right bundle branch block Abnormal ECG Compared to ECG 11/18/2024 10:18:11 Right bundle-branch block now present Sinus rhythm replaced Atrial fibrillation Electronically Signed On 11-18-2024 22:37:47 CDT by Dirk Carter us Mauro Fuentes MD ECG ORDERABLES Elaine l Result INTERFACE SYSTEM Refer to clinic/hospital department * (ABNORMAL) POC GLUCOSE (11/18/2024 4:32 PM CDT) GLUCOSE POC 205(H) 74 - 99 mg/dL 11/18/2024 4:32 PM CDT [facility] POINT OF CARE SPECIMEN SOURCE, GLUCOSE POC Whole Blood 11/18/2024 4:32 PM CDT [facility] POINT OF CARE Blood, whole 11/18/2024 4:32 PM CDT 11/18/2024 4:39 PM CDT us Mauro Fuentes MD POINT OF CARE TESTIN G Final Result Performing Organization Address [facility] Co de Phone Number [facility] POINT OF CARE CLIA # [id number] [place] [address] * (ABNORMAL) PTT (11/18/2024 1:40 PM CDT) PTT 43.6(H) 23.1 - 37.1 seconds 11/18/2024 2:10 PM CDT [facility] [employer] Blood Venipuncture / Unknown 11/18/2024 1:40 PM CDT 11/18/2024 1:44 PM CDT Charlette Kc MD HEMATOLOGY ORDERAB LES Final Result Performing Organization Address City/[facility]/ZIP Co de Phone Number [facility] [employer] [facility] CLIA# [id number] [place] [address] * (ABNORMAL) POC GLUCOSE (11/18/2024 11:14 AM CDT) GLUCOSE POC 155(H) 74 - 99 mg/dL 11/18/2024 11:14 AM CDT [facility] POINT OF CARE SPECIMEN SOURCE, GLUCOSE POC Whole Blood 11/18/2024 11:14 AM CDT [facility] POINT OF CARE Blood, whole 11/18/2024 11:1 4 AM CDT 11/18/2024 11:21 AM CDT us Mauro Fuentes MD POINT OF CARE TESTIN G Final Result [facility] POINT OF CARE CLIA # [id number] [address] [place] [address] * EKG 12-LEAD (11/18/2024 10:18 AM CDT) 11/18/2024 10:1 8 AM CDT Narrative INTERFACE SYSTEM - 11/18/2024 2:01 [place] [address] Test Date: 2024-11-18 Pat Name: JUNE FAUSTIN Department: 98 Room: [address] [place] [address] Gender: Female 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 Physician: Apryl : 1965 Requested By: PACO SALAS Order Number: [id number] Reading MD: Wale Robbins Measurements Intervals [place] Rate: 173 P: 0 SD: 0 QRS: -42 QRSD: 106 T: 0 QT: 238 QTc: 403 Interpretive Statements Critical Test Result: High HR Atrial fibrillation with rapid ventricular response Left axis deviation Incomplete right bundle branch block Nonspecific ST and T wave abnormality Abnormal ECG Compared to ECG 11/17/2024 16:07:32 Atrial fibrillation now present Electronically Signed On 11-18-2024 14:01:41 CDT by Wale Robbins Procedure Note Provider, Historical - 11/18/[address], [place] [address] Test Date: 2024-11-18 Pat Name: JUNE FAUSTIN Department: 98 Room: 3730 01 Gender: Female 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 Physician: Apryl : 1965 Requested By: PACO SALAS Order Number: [id number] Reading MD: Wale Robbins Measurements Intervals [place] Rate: 173 P: 0 SD: 0 QRS: -42 QRSD: 106 T: 0 QT: 238 QTc: 403 Interpretive Statements Critical Test Result: High HR Atrial fibrillation with rapid ventricular response Left axis deviation Incomplete right bundle branch block Nonspecific ST and T wave abnormality Abnormal ECG Compared to ECG 11/17/2024 16:07:32 Atrial fibrillation now present Electronically Signed On 11-18-2024 14:01:41 CDT by Wale Robbins us Mauro Fuentes MD ECG ORDERABLES Elaine l Result INTERFACE SYSTEM Refer to clinic/hospital department * (ABNORMAL) POC GLUCOSE (11/18/2024 7:20 AM CDT) GLUCOSE POC 214(H) 74 - 99 mg/dL 11/18/2024 7:20 AM CDT [facility] POINT OF CARE SPECIMEN SOURCE, GLUCOSE POC Whole Blood 11/18/2024 7:20 AM CDT [facility] POINT OF CARE Blood, whole 11/18/2024 7:20 AM CDT 11/18/2024 7:27 AM CDT us Charlette Kc MD POINT OF CARE TEST ING Final Result [facility] POINT OF CARE CLIA # [id number] [address] [place] [address] * TSH (11/18/2024 5:51 AM CDT) TSH 1.19 0.27 - 4.20 uIU/mL 11/18/2024 11:11 AM CDT [facility] Blood Venipuncture / Unknown 11/18/2024 5:51 AM CDT 11/18/2024 6:00 AM CDT Festus Bo MD CHEMISTRY ORDERABLES Final Re sult Performing Organization Address City/[facility]/ZIP Co de Phone Number [facility] [id number] [place] [address] * (ABNORMAL) IRON, TIBC, AND PERCENT SATURATION (11/18/2024 5:51 AM CDT) IRON 31(L) 37 - 145 ug/dL 11/18/2024 8:24 AM CDT [facility] TIBC 196(L) 265 - 497 ug/dL 11/18/2024 8:24 AM CDT [facility] IRON % SATURATION 16(L) 20 - 55 % 11/18/2024 8:24 AM CDT [facility] TRANSFERRIN 154(L) 200 - 360 mg/dL 11/18/2024 8:24 AM CDT [facility] Blood Venipuncture / Unknown 11/18/2024 5:51 AM CDT 11/18/2024 6:00 AM CDT Mauro Fuentes MD CHEMISTRY ORDERABLES Final Result [facility] [id number] [place] [address] * (ABNORMAL) PTT (11/18/2024 5:51 AM CDT) PTT 119.4(H) 23.1 - 37.1 seconds 11/18/2024 6:29 AM CDT [facility] Blood Venipuncture / Unknown 11/18/2024 5:51 AM CDT 11/18/2024 6:00 AM CDT Charlette Kc MD HEMATOLOGY ORDERAB LES Final Result Performing Organization Address City/[facility]/ZIP Co de Phone Number [facility] [id number] [place] [address] * (ABNORMAL) PHOSPHORUS (11/18/2024 5:51 AM CDT) PHOSPHORUS 2.3(L) 2.5 - 4.5 mg/dL 11/18/2024 6:34 AM CDT [facility] Blood Venipuncture / Unknown 11/18/2024 5:51 AM CDT 11/18/2024 6:00 AM CDT Grady Harmon [employer] CHEMISTRY ORDERABLES Final Re sult Performing Organization Address City/[facility] Co de Phone Number [facility]# [id number] [place] [address] * MAGNESIUM LEVEL (11/18/2024 5:51 AM CDT) MAGNESIUM 1.8 1.6 - 2.6 mg/dL 11/18/2024 6:34 AM CDT [facility] Blood Venipuncture / Unknown 11/18/2024 5:51 AM CDT 11/18/2024 6:00 AM CDT [facility] F[employer]OOK CHEMISTRY ORDERABLES Final Re sult [facility]# [id number] [place] [address] * (ABNORMAL) BASIC METABOLIC PANEL (11/18/2024 5:51 AM CDT) SODIUM 130(L) 136 - 145 mmol/L 11/18/2024 6:34 AM CDT [facility] POTASSIUM 4.3 3.4 - 5.1 mmol/L 11/18/2024 6:34 AM [facility] Comment:Moderate hemolysis p resent. Can cause significant falsely elevated result. Redraw if indicated. CHLORIDE 100 98 - 107 mmol/L 11/18/2024 6:34 AM T [facility] CO2 19(L) 22 - 29 mmol/L 11/18/2024 6:34 AM T [facility] CALCIUM 8.2(L) 8.6 - 10.4 mg/dL 11/18/2024 6:34 AM [facility] BUN 5(L) 6 - 20 mg/dL 11/18/2024 6:34 AM [facility] CREATININE 0.80 0.51 - 0.95 mg/dL 11/18/2024 6:34 AM [facility] GLUCOSE 215(H) 74 - 99 mg/dL 11/18/2024 6:34 AM T [facility] GFR >60 >=60 mL/min/1.7 3 sq meter 11/18/2024 6:34 AM [facility] Comment:eGFR calculated with 2020 CKD-EPI equation. Vegetarian diet, extremely high or low muscle mass, and may affect results. Cystatin C with Glomerular Filtration Rate is a suitable alternative for these patients. ANION GAP 11 8 - 16 mmol/L 11/18/2024 6:34 AM T [facility] Blood Venipuncture / Unknown 11/18/2024 5:51 AM CDT 11/18/2024 6:00 AM CDT Grady Barrett NP CHEMISTRY ORDERABLES Final Re sult [facility] CLIA# [id number] [place] [address] * (ABNORMAL) CBC WITH DIFFERENTIAL (11/18/2024 5:51 AM CDT) [facility] WBC 6.6 4.0 - 9.8 K/uL 11/18/2024 6:10 AM CDT [facility] LABORATORY [facility] RBC 4.19 3.90 - 4.90 M/uL 11/18/2024 6:10 AM CDT [facility] LABORATORY [facility] HEMOGLOBIN 10.1(L) 11.8 - 14.8 g/dL 11/18/2024 6:10 AM CDT [facility] LABORATORY [facility] HEMATOCRIT 33.3(L) 35.5 - 44.0 % 11/18/2024 6:10 AM CDT [facility] LABORATORY [facility] MCV 79.5(L) 82.0 - 99.0 fL 11/18/2024 6:10 AM CDT [facility] LABORATORY [facility] MCH 24.1(L) 27.2 - 32.6 pg 11/18/2024 6:10 AM CDT [facility] LABORATORY [facility] MCHC 30.3(L) 31.5 - 35.5 g/dL 11/18/2024 6:10 AM CDT [facility] LABORATORY [facility] RDW 18.6(H) 11.5 - 14.5 % 11/18/2024 6:10 AM CDT [facility] LABORATORY [facility] RDW-STDEV 53.6(H) 37.1 - 48.7 fL 11/18/2024 6:10 AM CDT [facility] LABORATORY [facility] PLATELETS 161 140 - 350 K/uL 11/18/2024 6:10 AM CDT [facility] LABORATORY [facility] MPV 9.3 9.3 - 12.4 fL 11/18/2024 6:10 AM CDT [facility] LABORATORY SERVICES [facility] NEUTROPHILS 71 % 11/18/2024 6:10 AM CDT [facility] LABORATORY SERVICES [facility] LYMPHOCYTES 17 % 11/18/2024 6:10 AM CDT [facility] LABORATORY SERVICES [facility] MONOCYTES 9 % 11/18/2024 6:10 AM CDT [facility] LABORATORY SERVICES [facility] EOSINOPHILS 2 % 11/18/2024 6:10 AM CDT [facility] LABORATORY SERVICES [facility] BASOPHILS 1 % 11/18/2024 6:10 AM CDT [facility] IMMATURE GRANULOCYTES 2 % 11/18/2024 6:10 AM CDT [facility] Comment:IG (Immature Granulo cyte) count includes Metamyelocytes, Myelocytes, and Promyelocytes NEUTROPHIL ABSOLUTE 4.62 1.90 - 7.00 K/uL 11/18/2024 6:10 AM CDT [facility] LYMPHOCYTE ABSOLUTE 1.10 0.70 - 4.50 K/uL 11/18/2024 6:10 AM CDT [facility] MONOCYTE ABSOLUTE 0.59 0.10 - 1.30 K/uL 11/18/2024 6:10 AM CDT [facility] EOSINOPHIL ABSOLUTE 0.11 0.00 - 0.70 K/uL 11/18/2024 6:10 AM CDT [facility] BASOPHILS ABSOLUTE 0.03 0.00 - 0.20 K/uL 11/18/2024 6:10 AM CDT [facility] IMMATURE GRANULOCYTES ABSOLUTE 0.10(H) 0.00 - 0.03 K/uL 11/18/2024 6:10 AM CDT [facility] Blood Venipuncture / Unknown 11/18/2024 5:51 AM CDT 11/18/2024 6:08 AM CDT us Grady Barrett NP HEMATOLOGY ORDERABLES Final R esult [facility] CLIA# [id number] [place] [address] * US LOW EXT JOE DUPLEX COMP BILAT (11/17/2024 11:13 PM CDT) Anatomical Region Laterality Modality Lower Extremity Ultrasound 11/17/2024 11:1 3 PM CDT Impressions 11/17/2024 11:28 PM CDT IMPRESSION: 1. Thrombus in the right common femoral vein that is incompletely occlusive. INCIDENTAL FINDINGS: None. DICTATION LOCATION: Location 7 - [facility] Narrative 11/17/2024 11:28 PM CDT Duplex imaging of the bilateral lower extremities DATE: 11/17/2024 11:13 PM. CLINICAL HISTORY: Pulmonary embolus. Rule out deep venous thrombosis. Rule out deep venous thrombosis. TECHNIQUE: Real-time sonography of the lower extremities is performed in transverse and longitudinal views. Spectral and color Doppler imaging are additionally used. FINDINGS: Doppler signals are obtained from the upper saphenous, common femoral, the proximal, mid and distal femoral, proximal profunda, popliteal and posterior tibial/peroneal veins. The venous thrombosis is evident in the right common femoral vein. This vein is incompletely compressible. The veins of the right lower extremity and the base of the left lower extremity are otherwise free of intraluminal thrombus. Grady Barrett NP US ORDERABLES Edited Result - Final * (ABNORMAL) PTT (11/17/2024 10:01 PM CDT) Pathologist [facility] PTT >150.0(HH) 23.1 - 37.1 seconds 11/17/2024 11:36 PM CDT [facility] Blood Venipuncture / Unknown 11/17/2024 10:01 PM CDT 11/17/2024 10:17 PM CDT Charlette Kc MD HEMATOLOGY ORDERAB LES Final Result [facility]# [id number] [place] [address] * (ABNORMAL) UNFRACTIONATED HEPARIN MONITORING (11/17/2024 10:01 PM CDT) Pathologist [facility] ANTI-XA UNFRAC HEP 0.91(HH) See Interpreta tion. IU/mL 11/17/2024 11:16 PM CDT [facility] Blood Venipuncture / Unknown 11/17/2024 10:01 PM CDT 11/17/2024 10:17 PM CDT Narrative [facility] - 11/17/2024 11:16 PM CDT Unfractionated Heparin Therapeutic Range: 0.30-0.70 IU/ml Refer to pharmacy adult heparin protocol for further recommendation. The reference range for this test is specific to the anticoagulant and is not appropriate for monitoring patients on a DOAC protocol. Stone Mahajan MD HEMATOLOGY ORDERABLE S Final Result Performing Organization Address City/[facility]/ZIP Co de Phone Number [facility] CLIA# [id number] [place] [address] * (ABNORMAL) POC GLUCOSE (11/17/2024 9:39 PM CDT) GLUCOSE POC 204(H) 74 - 99 mg/dL 11/17/2024 9:39 PM CDT [facility] POINT OF CARE SPECIMEN SOURCE, GLUCOSE POC Whole Blood 11/17/2024 9:39 PM CDT [facility] POINT OF CARE Blood, whole 11/17/2024 9:39 PM CDT 11/17/2024 10:19 PM CDT Charlette Kc MD POINT OF CARE TEST ING Final Result Performing Organization Address [facility] Co de Phone Number [facility] POINT OF CARE CLIA # [id number] [place] [address] * (ABNORMAL) POC GLUCOSE (11/17/2024 8:45 PM CDT) GLUCOSE POC 205(H) 74 - 99 mg/dL 11/17/2024 8:45 PM CDT [facility] POINT OF CARE SPECIMEN SOURCE, GLUCOSE POC Whole Blood 11/17/2024 8:45 PM CDT [facility] POINT OF CARE Blood, whole 11/17/2024 8:45 PM CDT 11/17/2024 8:51 PM CDT Charlette Kc MD POINT OF CARE TEST ING Final Result Performing Organization Address City/[facility]/ZIP Co de Phone Number [facility] POINT OF CARE CLIA # [id number] [place] [address] * EXTRA TUBE (URINE CONTAINER) (11/17/2024 6:11 PM CDT) Urine URINE SPECIMEN OBTAINED BY CLEAN CATCH PROCEDURE / Unknown Collection / Unknown 11/17/2024 6:11 PM CDT 11/17/2024 6:15 PM CDT Stone Mahajan MD URINE ORDERABLES Fin al Result [facility] CLIA# [id number] [place] [address] * EXTRA TUBE (URINE NESBITT) (11/17/2024 6:11 PM CDT) Urine URINE SPECIMEN OBTAINED BY CLEAN CATCH PROCEDURE / Unknown Collection / Unknown 11/17/2024 6:11 PM CDT 11/17/2024 6:15 PM CDT Grady Barrett NP URINE ORDERABLES Final Result Performing Organization Address [facility]/ZIP Co de Phone Number [facility] CLIA# [id number] [place] [address] * (ABNORMAL) URINALYSIS WITH REFLEX MICROSCOPIC (11/17/2024 6:11 PM CDT) COLOR UA Yellow Pale to Dark Yellow 11/17/2024 6:35 PM CDT [facility] CLARITY UA Clear Clear 11/17/2024 6:35 PM CDT [facility] SPECIFIC GRAVITY UA >1.035(H) 1.003 - 1.035 11/17/2024 6:35 PM CDT [facility] PH UA 5.0 5.0 - 8.0 11/17/2024 6:35 PM CDT [facility] LEUKOCYTE ESTERASE UA 2+(A) Negative 11/17/2024 6:35 PM CDT [facility] NITRITE UA Negative Negative 11/17/2024 6:35 PM CDT [facility] PROTEIN UA Negative Negative 11/17/2024 6:35 PM CDT [facility] GLUCOSE UA 2+(A) Negative 11/17/2024 6:35 PM CDT [facility] KETONES UA Negative Negative 11/17/2024 6:35 PM CDT [facility] UROBILINOGEN UA Normal <2.0 mg/dL 6:35 PM CDT [facility] BILIRUBIN UA Negative Negative 11/17/2024 6:35 PM CDT [facility] BLOOD UA 1+(A) Negative 11/17/2024 6:35 PM CDT [facility] WBC UA 3-5(A) 0 - 2 /hpf 11/17/2024 6:35 PM CDT [facility] RBC UA 3-5(A) 0 - 2 /hpf 11/17/2024 6:35 PM CDT [facility] BACTERIA UA 1+(A) Negative /hpf 11/17/2024 6:35 PM CDT [facility] EPITHELIAL CELLS, URINE 0-5 0 - 5 /hpf 11/17/2024 6:35 PM CDT [facility] HYALINE CAST None Seen None Seen, 0-2 /lpf 11/17/2024 6:35 PM CDT [facility] Urine URINE SPECIMEN OBTAINED BY CLEAN CATCH PROCEDURE / Unknown Collection / Unknown 11/17/2024 6:11 PM CDT 11/17/2024 6:15 PM CDT us Grady Barrett NP URINE ORDERABLES Final Result [facility] CLIA# [id number] [place] [address] * EXTRA TUBE (GREEN) (11/17/2024 6:05 PM CDT) Blood Venipuncture / Unknown 11/17/2024 6:05 PM CDT 11/17/2024 6:06 PM CDT Stone Mahajan MD CHEMISTRY ORDERABLES Final Result Performing Organization Address City/[facility]/ZIP Co de Phone Number [facility] CLIA# [id number] [place] [address] * KETONES/BETA HYDROXYBUTYRATE (11/17/2024 6:05 PM CDT) BETA HYDROXYBUTYRATE 0.1 <0.5 mmol/L 11/17/2024 6:11 PM CDT [facility] Blood Venipuncture / Unknown 11/17/2024 6:05 PM CDT 11/17/2024 6:05 PM CDT Stone Mahajan MD CHEMISTRY ORDERABLES Final Result Performing Organization Address City/[facility] Co de Phone Number [facility] CLIA# [id number] [place] [address] * EKG 12-LEAD (11/17/2024 4:07 PM CDT) 11/17/2024 4:07 PM CDT Narrative INTERFACE SYSTEM - 11/18/2024 1:47 PM [address] [address] Test Date: 2024-11-17 Pat Name: JUNE FAUSTIN Department: 98 Room: 3730 Gender: Female 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 Physician: APRYL FALLONB: 1965 Requested By: PACO SALAS Order Number: [id number] James MD: Wale Robbins Measurements Intervals [place] Rate: 88 P: 14 SD: 144 QRS: -23 QRSD: 118 T: 10 QT: 378 QTc: 457 Interpretive Statements Normal sinus rhythm Low voltage QRS Right bundle branch block Abnormal ECG No previous ECG available for comparison Electronically Signed On 11-18-2024 13:47:56 CDT by Wale Robbins Procedure Note Provider, Historical - 11/18/[address] [address] Test Date: 2024-11-17 Pat Name: JUNE FAUSTIN Department: 98 Room: 3730 Gender: Female 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: APRYL : 1965 Requested By: PACO SALAS Order Number: [id number] Reading MD: Wale Robbins Measurements Intervals [place] Rate: 88 P: 14 SD: 144 QRS: -23 QRSD: 118 T: 10 QT: 378 QTc: 457 Interpretive Statements Normal sinus rhythm Low voltage QRS Right bundle branch block Abnormal ECG No previous ECG available for comparison Electronically Signed On 11-18-2024 13:47:56 CDT by Wale Robbins Grady Barrett NP ECG ORDERABLES Final Result Performing Organization Address City/State/[facility] Co de Phone Number INTERFACE SYSTEM Refer to clinic/hospital department * XR CHEST PA OR AP 1 VW (11/17/2024 3:46 PM CDT) Anatomical Region Laterality Modality Chest Computed Radiogr aphy 11/17/2024 3:47 PM CDT Impressions 11/17/2024 3:58 PM CDT IMPRESSION: 1. Bibasilar atelectasis. DICTATION LOCATION: Location 4 Narrative 11/17/2024 3:58 PM CDT EXAMINATION: XR CHEST PA OR AP 1 VW DATE: 11/17/2024 3:46 PM HISTORY: Pain; pulmonary embolism COMPARISON: No prior study is available for comparison at the time of this dictation. FINDINGS: There is probable bibasilar atelectasis. There is no large pleural effusion or pneumothorax. The cardiomediastinal silhouette is normal. The visible bony thorax is intact. Procedure Note Patel Jaffe MD - 11/17/2024 EXAMINATION: XR CHEST PA OR AP 1 VW DATE: 11/17/2024 3:46 PM HISTORY: Pain; pulmonary embolism COMPARISON: No prior study is available for comparison at the time of this dictation. FINDINGS: There is probable bibasilar atelectasis. There is no large pleural effusion or pneumothorax. The cardiomediastinal silhouette is normal. The visible bony thorax is intact. IMPRESSION: 1. Bibasilar atelectasis. DICTATION LOCATION: Location 4 Grady Barrett NP DIAGNOSTIC IMAGING ORDERABLES Final Result * TROPONIN (11/17/2024 3:25 PM CDT) Pathologist [facility] TROPONIN T, 5TH GEN <6 <=10 ng/L 11/17/2024 5:44 PM CDT [facility] LABORATORY [facility] Blood Venipuncture / Unknown 11/17/2024 3:25 PM CDT 11/17/2024 3:36 PM CDT [facility] - 11/17/2024 5:44 PM CDT Troponin Undetectable Stone Mahajan MD CHEMISTRY ORDERABLES Final Result [facility] CLIA# [id number] [place] [address] * (ABNORMAL) LIPID PANEL (11/17/2024 3:25 PM CDT) Pathologist [facility] CHOLESTEROL 130 <200 mg/dL 11/17/2024 5:26 PM CDT [facility] TRIGLYCERIDE 187(H) <150 mg/dL 11/17/2024 5:26 PM CDT [facility] HDL 42 40 - 59 mg/dL 11/17/2024 5:26 PM CDT [facility] LDL CALCULATED 51 <100 mg/dL 11/17/2024 5:26 PM CDT [facility] NON-HDL CHOLESTEROL 88 <130 mg/dL 11/17/2024 5:26 PM CDT [facility] Blood Venipuncture / Unknown 11/17/2024 3:25 PM CDT 11/17/2024 3:36 PM CDT Critical access hospital LABORATORY [facility] - 11/17/2024 5:26 PM CDT TOTAL CHOLESTEROL mg/dL Desirable <200 Borderline high 200-239 High >=240 TRIGLYCERIDES mg/dL Normal <150 Borderline high 150-199 High 200-499 Very high >=500 HDL CHOLESTEROL mg/dL Low <40 Normal 40-59 Desirable >=60 NON HDL CHOLESTEROL mg/dL Optimal <130 Near Optimal 130-159 Borderline High 160-189 Very High >=190 CALCULATED LDL mg/dL LDL <70, OPTIMAL if have Atherosclerotic cardiovascular disease (ASCVD) or intermediate or higher (>7.5%) 10 year risk of ASCVD including most adults with diabetes. LDL <100, Optimal in adult patients with low (<7.5%) 10 year ASCVD risk LDL 100-160, Suboptimal LDL >160, High LDL >190, Very high LDL calculated using the Friedewald equation. ATPIII Guidelines Reference Ranges for Lipid Panels (NCEP/AMA) . Stone Mahajan MD CHEMISTRY ORDERABLES Final Result [facility] CLIA# [id number] [place] [address] * (ABNORMAL) COMPREHENSIVE METABOLIC PANEL (11/17/2024 3:25 PM CDT) SODIUM 137 136 - 145 mmol/L 11/17/2024 4:03 PM CDT [facility] POTASSIUM 3.7 3.4 - 5.1 mmol/L 11/17/2024 4:03 PM CDT [facility] CHLORIDE 105 98 - 107 mmol/L 11/17/2024 4:03 PM CDT [facility] CO2 19(L) 22 - 29 mmol/L 11/17/2024 4:03 PM CDT [facility] CALCIUM 8.2(L) 8.6 - 10.4 mg/dL 11/17/2024 4:03 PM CDT [facility] BUN 8 6 - 20 mg/dL 11/17/2024 4:03 PM CDT [facility] CREATININE 0.86 0.51 - 0.95 mg/dL 11/17/2024 4:03 PM T [facility] GLUCOSE 176(H) 74 - 99 mg/dL 11/17/2024 4:03 PM T [facility] TOTAL PROTEIN 5.5(L) 6.3 - 8.7 g/dL 11/17/2024 4:03 PM T [facility] ALBUMIN 2.9(L) 3.5 - 5.2 g/dL 11/17/2024 4:03 PM T [facility] BILIRUBIN TOTAL 0.3 0.3 - 1.2 mg/dL 11/17/2024 4:03 PM T [facility] ALKALINE PHOSPHATASE 63 40 - 150 U/L 11/17/2024 4:03 PM [facility] AST 14 0 - 33 U/L 11/17/2024 4:03 PM [facility] ALT 14 0 - 33 U/L 11/17/2024 4:03 PM T [facility] GFR >60 >=60 mL/min/1.7 3 sq meter 11/17/2024 4:03 PM T [facility] Comment:eGFR calculated with 2020 CKD-EPI equation. Vegetarian diet, extremely high or low muscle mass, and may affect results. Cystatin C with Glomerular Filtration Rate is a suitable alternative for these patients. ANION GAP 13 8 - 16 mmol/L 11/17/2024 4:03 PM T [facility] Blood Venipuncture / Unknown 11/17/2024 3:25 PM CDT 11/17/2024 3:36 PM CDT us Grady Barrett NP CHEMISTRY ORDERABLES Final Re sult [facility] CLIA# [id number] [place] [address] * LACTIC ACID (11/17/2024 3:25 PM CDT) [facility] LACTIC ACID 1.1 <=2.0 mmol/L 11/17/2024 4:04 PM CDT [facility] Blood Venipuncture / Unknown 11/17/2024 3:25 PM CDT 11/17/2024 3:36 PM CDT [facility] Barrett NP CHEMISTRY ORDERABLES Final Re sult [facility] CLIA# [id number] [place] [address] * (ABNORMAL) CBC WITH DIFFERENTIAL (11/17/2024 3:25 PM CDT) [facility] WBC 6.2 4.0 - 9.8 K/uL 11/17/2024 3:39 PM CDT [facility] RBC 4.67 3.90 - 4.90 M/uL 11/17/2024 3:39 PM CDT [facility] HEMOGLOBIN 11.1(L) 11.8 - 14.8 g/dL 11/17/2024 3:39 PM CDT [facility] HEMATOCRIT 38.0 35.5 - 44.0 % 11/17/2024 3:39 PM CDT [facility] MCV 81.4(L) 82.0 - 99.0 fL 11/17/2024 3:39 PM CDT [facility] MCH 23.8(L) 27.2 - 32.6 pg 11/17/2024 3:39 PM CDT [facility] MCHC 29.2(L) 31.5 - 35.5 g/dL 11/17/2024 3:39 PM CDT [facility] RDW 18.6(H) 11.5 - 14.5 % 11/17/2024 3:39 PM CDT [facility] RDW-STDEV 55.1(H) 37.1 - 48.7 fL 11/17/2024 3:39 PM CDT [facility] PLATELETS 155 140 - 350 K/uL 11/17/2024 3:39 PM CDT [facility] MPV 9.3 9.3 - 12.4 fL 11/17/2024 3:39 PM CDT [facility] NEUTROPHILS 74 % 11/17/2024 3:39 PM CDT [facility] LYMPHOCYTES 17 % 11/17/2024 3:39 PM CDT [facility] MONOCYTES 6 % 11/17/2024 3:39 PM CDT [facility] EOSINOPHILS 1 % 11/17/2024 3:39 PM CDT [facility] BASOPHILS 1 % 11/17/2024 3:39 PM CDT [facility] IMMATURE GRANULOCYTES 2 % 11/17/2024 3:39 PM CDT [facility] Comment:IG (Immature Granulo cyte) count includes Metamyelocytes, Myelocytes, and Promyelocytes NEUTROPHIL ABSOLUTE 4.55 1.90 - 7.00 K/uL 11/17/2024 3:39 PM CDT [facility] LYMPHOCYTE ABSOLUTE 1.05 0.70 - 4.50 K/uL 11/17/2024 3:39 PM CDT [facility] MONOCYTE ABSOLUTE 0.38 0.10 - 1.30 K/uL 11/17/2024 3:39 PM CDT [facility] EOSINOPHIL ABSOLUTE 0.06 0.00 - 0.70 K/uL 11/17/2024 3:39 PM CDT [facility] BASOPHILS ABSOLUTE 0.04 0.00 - 0.20 K/uL 11/17/2024 3:39 PM CDT [facility] IMMATURE GRANULOCYTES ABSOLUTE 0.11(H) 0.00 - 0.03 K/uL 11/17/2024 3:39 PM CDT [facility] Blood Venipuncture / Unknown 11/17/2024 3:25 PM CDT 11/17/2024 3:33 PM CDT Grady Barrett FALAFEL CART COOK HEMATOLOGY ORDERABLES Final R esult [facility] [id number] [place] [address] * (ABNORMAL) HEMOGLOBIN A1C (11/17/2024 3:25 PM CDT) HEMOGLOBIN A1C 11.1(H) <=5.6 % 11/17/2024 5:28 PM CDT [facility] Edfa3ly [facility] EST. AVG GLUCOSE, A1C 272 mg/dL 11/17/2024 5:28 PM CDT [facility] Blood Venipuncture / Unknown 11/17/2024 3:25 PM CDT 11/17/2024 3:33 PM CDT Narrative [facility] - 11/17/2024 5:28 PM CDT HGB A1C INTERPRETATION NORMAL: <5.7% PRE-DIABETES: 5.7 - 6.4% DIABETES: 6.5% OR GREATER Grady Barrett F[employer]EL [employer]OOK CHEMISTRY ORDERABLES Final Re sult Performing Organization Address City/[facility]/ZIP Co de Phone Number [facility]# [id number] [place] [address] * UNFRACTIONATED HEPARIN MONITORING (11/17/2024 3:25 PM CDT) ANTI-XA UNFRAC HEP 0.72 See Interpreta tion. IU/mL 11/17/2024 3:58 PM CDT [facility] Blood Venipuncture / Unknown 11/17/2024 3:25 PM CDT 11/17/2024 3:34 PM CDT Narrative [facility] - 11/17/2024 3:58 PM CDT Unfractionated Heparin Therapeutic Range: 0.30-0.70 IU/ml Refer to pharmacy adult heparin protocol for further recommendation. The reference range for this test is specific to the anticoagulant and is not appropriate for monitoring patients on a DOAC protocol. Grady BernsteinstaciJordan [facility] HEMATOLOGY ORDERABLES Final R [facility] Performing Organization Address [facility] de Phone Number [facility]# [id number] [place] [address] * PTT (11/17/2024 3:25 PM CDT) PTT 35.0 23.1 - 37.1 seconds 11/17/2024 3:58 PM CDT [facility] Blood Venipuncture / Unknown 11/17/2024 3:25 PM CDT 11/17/2024 3:34 PM CDT [facility] HEMATOLOGY ORDERABLES Final R [facility] Performing Organization Address [facility] de Phone Number [facility]# [id number] [place] [address] * ECHOCARDIOGRAM W/ CONTRAST AGENT (11/17/2024 3:13 PM CDT) Pathologist [facility] EJECTION FRACTION 70 INTERFACE SYSTEM 11/17/2024 2:40 PM CDT Narrative INTERFACE SYSTEM - 11/17/2024 4:14 PM CDT Transthoracic Echocardiogram Patient: June Faustin Study ID: [id number] Gender: F : 1965 Age: 59 Race: CAU Height 165.1cm Study Date: 11/17/2024 Weight: 67.1kg Access. #: [id number] BP: 122 / 76 *Referring Physician:* Grady Barrett *Ordering Physician:* Grady Barrett *[employer]electric [employer] Electrical Engineer:SKY Rodriguez safety and skill based pay manager: Nurse: Indications: Acute PE. History: PMH: No prior cardiac history. STUDY CONCLUSIONS: SUMMARY: - Procedure narrative: A transthoracic echocardiogram was performed. Image quality was technically difficult, The study was technically limited due to poor acoustic window availability. Scanning was performed from the parasternal, apical, and subcostal acoustic windows. Intravenous contrast (Definity) was administered to enhance endocardial border detection that was not seen in two consecutive segments due to suboptimal baseline images and opacify the LV. - Left ventricle: The cavity size was normal. Wall thickness was normal. Global systolic function is hyperdynamic. The estimated ejection fraction is 70-75%. For Epic reporting: the left ventricular ejection fraction is 70% . - Left atrium: The atrium is normal in size. - Right ventricle: The cavity size is normal. Systolic function is normal. Suboptimally seen but appears normal in size and function. - Right atrium: The estimated right atrial pressure is 5mm Hg. Cardiac Anatomy: LEFT VENTRICLE: The cavity size was normal. Wall thickness was normal. Global systolic function is hyperdynamic. The estimated ejection fraction is 70-75%. For Epic reporting: the left ventricular ejection fraction is 70% . AORTIC VALVE: Structurally normal valve. Trileaflet. No significant regurgitation. The mean systolic gradient is 6mm Hg. The peak systolic gradient is 10mm Hg. The LVOT to aortic valve VTI ratio is 1.12. The valve area is 3.2cm^2. The ratio of LVOT to aortic valve peak velocity is 0.98. AORTA: Aortic root: The root is normal-sized. MITRAL VALVE: Structurally normal valve. No significant regurgitation. The mean diastolic gradient is 2mm Hg. The peak diastolic gradient is 4mm Hg. LEFT ATRIUM: The atrium is normal in size. RIGHT VENTRICLE: The cavity size is normal. Systolic function is normal. PULMONIC VALVE: Structurally normal valve. No significant regurgitation. TRICUSPID VALVE: Structurally normal valve. No significant regurgitation. RIGHT ATRIUM: The atrium was normal in size. The estimated right atrial pressure is 5mm Hg. SYSTEMIC VEINS: Inferior vena cava: The IVC is normal-sized. PERICARDIUM: A trivial pericardial effusion is identified. Measurements Left ventricle Value Ref IVS, ED, LAX (H) 1.2 cm 0.6 - 0.9 MARIANA, LAX (L) 2.7 cm 3.8 - 5.2 MARIANA/bsa, LAX (L) 1.6 cm/m^2 2.3 - 3.1 IVS, ED (H) 1.2 cm 0.6 - 0.9 PW, ED (H) 1.1 cm 0.6 - 0.9 EDV, 2-p (N) 95 ml 46 - 106 ESV, 2-p (N) 26 ml 14 - 42 EF, 2-p (N) 73 % 54 - 74 SV, 2-p 69 ml --------- SV/bsa, 2-p 39.8 ml/m^2 --------- E', med carl, TDI (N) 7.2 cm/sec >=7.0 E/e', med carl, TDI 14 --------- LVOT Value Ref Diam, S 1.9 cm --------- Area 2.8 cm^2 --------- Peak kisha, S 1.56 m/sec --------- VTI, S 29.7 cm --------- Peak grad, S 10 mm Hg --------- Right ventricle Value Ref MARIANA minor ax, A4C base (N) 3.4 cm 2.5 - 4.1 MARIANA minor ax, A4C mid (N) 2.7 cm 1.9 - 3.5 MARIANA major ax, A4C (N) 8.0 cm 5.9 - 8.3 TAPSE, MM (N) 1.8 cm >=1.7 S' lateral (N) 11.7 cm/sec >=9.5 Left atrium Value Ref AP dim, ES (N) 3.5 cm 2.7 - 3.8 AP dim index, ES (N) 2.0 cm/m^2 1.5 - 2.3 SI dim, A4C 5.1 cm --------- Area ES, A4C (N) 14 cm^2 <=20 Area/bsa ES, A4C 8.28 cm^2/m^2 --------- SI dim, A2C 3.8 cm --------- SI dim, shorter 3.8 cm --------- Vol, ES, 1-p A2C (N) 26 ml 22 - 52 Vol/bsa, ES, 1-p A2C (N) 15 ml/m^2 13 - 40 LA/Ao root ratio 1.06 --------- Right atrium Value Ref SI dim, ES, A4C (N) 4.6 cm 3.4 - 5.3 SI dim/bsa, ES, A4C (N) 2.6 cm/m^2 1.9 - 3.1 Area, ES, A4C (N) 12 cm^2 10 - 18 Vol, ES, 1-p A4C 24 ml --------- Vol/bsa, ES, 1-p A4C (N) 14 ml/m^2 9 - 33 Aortic valve Value Ref Peak v, S 1.6 m/sec --------- Mean v, S 1.09 m/sec --------- VTI, S 26.5 cm --------- Mean grad, S 6 mm Hg --------- Peak grad, S 10 mm Hg --------- LVOT/AV, VTI ratio 1.12 --------- KATHERYN, VTI 3.2 cm^2 --------- KATHERYN/bsa, VTI 1.83 cm^2/m^2 --------- LVOT/AV, Vpeak ratio 0.98 --------- KATHERYN, Vmax 2.7 cm^2 --------- KAHTERYN/bsa, Vmax 1.55 cm^2/m^2 --------- Mitral valve Value Ref Peak E 0.98 m/sec --------- Peak A 1.05 m/sec --------- Mean grad, D 2 mm Hg --------- Peak grad, D 4 mm Hg --------- Peak E/A ratio 0.9 --------- Pulmonic valve Value Ref Peak v, S 1.1 m/sec --------- Peak grad, S 5 mm Hg --------- Tricuspid valve Value Ref Peak E 0.57 m/sec --------- Aortic root Value Ref Root diam, 3.3 cm --------- Ascending aorta Value Ref AAo AP diam, S 3.5 cm --------- AAo AP diam/bsa, S 2.0 cm/m^2 --------- Systemic veins Value Ref Estimated RA pressure 5 mm Hg --------- Legend: (L) and (H) andrew values outside specified reference range. (N) patino values inside specified reference range. Procedure data: [facility] No prior study was available for comparison. Study status: Stat. Procedure information: A transthoracic echocardiogram was performed. Image quality was technically difficult, The study was technically limited due to poor acoustic window availability. Scanning was performed from the parasternal, apical, and subcostal acoustic windows. Intravenous contrast (Definity) was administered to enhance endocardial border detection that was not seen in two consecutive segments due to suboptimal baseline images and opacify the LV. Transthoracic echocardiogram. Complete 2D, complete spectral Doppler, and color Doppler. Images were not appropriate for strain imaging. Birthdate: Patient birthdate: 1965. Age: Patient is 59year(s) old. Sex: gender: female. Height: 165.1cm. 65in. Weight: 67.1kg. 148lb. Body mass index: 24.6kg/m^2. Body surface area: 1.74m^2. Heart rate: 88bpm. Blood pressure: 122/76 Patient status: Inpatient. Study date: Study date: 11/17/2024. Study time: 02:40 PM. Location: ICU/CCU Prepared and Electronically Authenticated Filiberto Mckeon M.D. [id number] Procedure Note Filiberto Mckeon MD - 11/17/2024 Transthoracic Echocardiogram Patient: June Faustin Study ID: [id number] Gender: Leatha : 1965 Age: 59 Race: MEAGAN Height 165.1cm Study Date: 11/17/2024 Weight: 67.1kg Access. #: [id number] BP: 122 / 76 *Referring Physician:Grady Henderson *Ordering Physician:Grady Henderson *[employer] Electrical Engineer:SKY Rodriguez safety and skill based pay manager: Nurse: Indications: Acute PE. History: PMH: No prior cardiac history. STUDY CONCLUSIONS: SUMMARY: - Procedure narrative: A transthoracic echocardiogram was performed.Image quality was technically difficult, The study was technically limited dueto poor acoustic window availability. Scanning was performed from the parasternal, apical, and subcostal acoustic windows. Intravenouscontrast (Definity) was administered to enhance endocardial border detection thatwas not seen in two consecutive segments due to suboptimal baseline imagesand opacify the LV. - Left ventricle: The cavity size was normal. Wall thickness was normal. Global systolic function is hyperdynamic. The estimated ejectionfraction is 70-75%. For Epic reporting: the left ventricular ejection fraction is70% . - Left atrium: The atrium is normal in size. - Right ventricle: The cavity size is normal. Systolic function isnormal. Suboptimally seen but appears normal in size and function. - Right atrium: The estimated right atrial pressure is 5mm Hg. Cardiac Anatomy: LEFT VENTRICLE: The cavity size was normal. Wall thickness was normal.Global systolic function is hyperdynamic. The estimated ejection fraction is70-75%. For Epic reporting: the left ventricular ejection fraction is 70% . AORTIC VALVE: Structurally normal valve. Trileaflet. No significant regurgitation. The mean systolic gradient is 6mm Hg. The peak systolic gradient is 10mm Hg. The LVOT to aortic valve VTI ratio is 1.12. Thevalve area is 3.2cm^2. The ratio of LVOT to aortic valve peak velocity is0.98. AORTA: Aortic root: The root is normal-sized. MITRAL VALVE: Structurally normal valve. No significantregurgitation. The mean diastolic gradient is 2mm Hg. The peak diastolic gradient is 4mmHg. LEFT ATRIUM: The atrium is normal in size. RIGHT VENTRICLE: The cavity size is normal. Systolic function isnormal. PULMONIC VALVE: Structurally normal valve. No significantregurgitation. TRICUSPID VALVE: Structurally normal valve. No significantregurgitation. RIGHT ATRIUM: The atrium was normal in size. The estimated right atrial pressure is 5mm Hg. SYSTEMIC VEINS: Inferior vena cava: The IVC is normal-sized. PERICARDIUM: A trivial pericardial effusion is identified. Measurements Left ventricle Value Ref IVS, ED, LAX (H) 1.2 cm 0.6 - 0.9 MARIANA, LAX (L) 2.7 cm 3.8 - 5.2 MARIANA/bsa, LAX (L) 1.6 cm/m^2 2.3 - 3.1 IVS, ED (H) 1.2 cm 0.6 - 0.9 PW, ED (H) 1.1 cm 0.6 - 0.9 EDV, 2-p (N) 95 ml 46 - 106 ESV, 2-p (N) 26 ml 14 - 42 EF, 2-p (N) 73 % 54 - 74 SV, 2-p 69 ml --------- SV/bsa, 2-p 39.8 ml/m^2 --------- E', med carl, TDI (N) 7.2 cm/sec >=7.0 E/e', med carl, TDI 14 --------- LVOT Value Ref Diam, S 1.9 cm --------- Area 2.8 cm^2 --------- Peak kisha, S 1.56 m/sec --------- VTI, S 29.7 cm --------- Peak grad, S 10 mm Hg --------- Right ventricle Value Ref MARIANA minor ax, A4C base (N) 3.4 cm 2.5 - 4.1 MARIANA minor ax, A4C mid (N) 2.7 cm 1.9 - 3.5 MARIANA major ax, A4C (N) 8.0 cm 5.9 - 8.3 TAPSE, MM (N) 1.8 cm >=1.7 S' lateral (N) 11.7 cm/sec >=9.5 Left atrium Value Ref AP dim, ES (N) 3.5 cm 2.7 - 3.8 AP dim index, ES (N) 2.0 cm/m^2 1.5 - 2.3 SI dim, A4C 5.1 cm --------- Area ES, A4C (N) 14 cm^2 <=20 Area/bsa ES, A4C 8.28 cm^2/m^2 --------- SI dim, A2C 3.8 cm --------- SI dim, shorter 3.8 cm --------- Vol, ES, 1-p A2C (N) 26 ml 22 - 52 Vol/bsa, ES, 1-p A2C (N) 15 ml/m^2 13 - 40 LA/Ao root ratio 1.06 --------- Right atrium Value Ref SI dim, ES, A4C (N) 4.6 cm 3.4 - 5.3 SI dim/bsa, ES, A4C (N) 2.6 cm/m^2 1.9 - 3.1 Area, ES, A4C (N) 12 cm^2 10 - 18 Vol, ES, 1-p A4C 24 ml --------- Vol/bsa, ES, 1-p A4C (N) 14 ml/m^2 9 - 33 Aortic valve Value Ref Peak v, S 1.6 m/sec --------- Mean v, S 1.09 m/sec --------- VTI, S 26.5 cm --------- Mean grad, S 6 mm Hg --------- Peak grad, S 10 mm Hg --------- LVOT/AV, VTI ratio 1.12 --------- KATHERYN, VTI 3.2 cm^2 --------- KATHERYN/bsa, VTI 1.83 cm^2/m^2 --------- LVOT/AV, Vpeak ratio 0.98 --------- KATHERYN, Vmax 2.7 cm^2 --------- KATHERYN/bsa, Vmax 1.55 cm^2/m^2 --------- Mitral valve Value Ref Peak E 0.98 m/sec --------- Peak A 1.05 m/sec --------- Mean grad, D 2 mm Hg --------- Peak grad, D 4 mm Hg --------- Peak E/A ratio 0.9 --------- Pulmonic valve Value Ref Peak v, S 1.1 m/sec --------- Peak grad, S 5 mm Hg --------- Tricuspid valve Value Ref Peak E 0.57 m/sec --------- Aortic root Value Ref Root diam, 3.3 cm --------- Ascending aorta Value Ref AAo AP diam, S 3.5 cm --------- AAo AP diam/bsa, S 2.0 cm/m^2 --------- Systemic veins Value Ref Estimated RA pressure 5 mm Hg --------- Legend: (L) and (H) andrew values outside specified reference range. (N) patino values inside specified reference range. Procedure data: [facility] No prior study was available for comparison. Studystatus: Stat. Procedure information: A transthoracic echocardiogram wasperformed. Image quality was technically difficult, The study was technically limiteddue to poor acoustic window availability. Scanning was performed from the parasternal, apical, and subcostal acoustic windows. Intravenouscontrast (Definity) was administered to enhance endocardial border detection thatwas not seen in two consecutive segments due to suboptimal baseline imagesand opacify the LV. Transthoracic echocardiogram. Complete 2D,complete spectral Doppler, and color Doppler. Images were not appropriate forstrain imaging. Birthdate: Patient birthdate: 1965. Age: Patient is 59year(s) old. Sex: gender: female. Height: 165.1cm. 65in.Weight: 67.1kg. 148lb. Body mass index: 24.6kg/m^2. Body surface area:1.74m^2. Heart rate: 88bpm. Blood pressure: 122/76 Patient status:Inpatient. Study date: Study date: 11/17/2024. Study time: 02:40 PM. Location: ICU/CCU Prepared and Electronically Authenticated Filiberto Mckeon M.D. [id number] us Grady Barrett NP US ORDERABLES Final Result Performing Organization Address [place]/[facility] Co de Phone Number INTERFACE SYSTEM Refer to clinic/hospital department * (ABNORMAL) POC GLUCOSE (11/17/2024 2:36 PM CDT) [facility] GLUCOSE POC 169(H) 74 - 99 mg/dL 11/17/2024 2:36 PM CDT [facility] POINT OF CARE SPECIMEN SOURCE, GLUCOSE POC Whole Blood 11/17/2024 2:36 PM CDT [facility] POINT OF CARE COMMENT, GLU POC Notified RN/MD 11/17/2024 2:36 PM CDT [facility] POINT OF CARE Blood, whole 11/17/2024 2:36 PM CDT 11/17/2024 2:42 PM CDT Paco Salas MD POINT OF CARE TESTING Final Re sult Performing Organization Address [facility] de Phone Number [facility] POINT OF CARE CLIA # [id number] [place] [address] * XR PRIOR STUDY (11/17/2024 8:35 AM CDT) Narrative [facility] POINT OF CARE - 11/17/2024 4:00 PM CDT This exam was auto finalized to allow images to be scanned to PACS. us External Provider [facility] DIAGNOSTIC IMAGING ORDERA BLES Final Result Performing Organization Address [facility] Co de Phone Number [facility] POINT OF CARE CLIA # [id number] [place] [address] * CT PRIOR STUDY (11/17/2024 8:30 AM CDT) [facility] - 11/17/2024 3:56 PM CDT This exam was auto finalized to allow images to be scanned to PACS. us External Provider [facility] CT ORDERABLES Final Res ult Performing Organization Address [facility] de Phone Number [facility] CLIA # [id number] [place] [address] * CT PRIOR STUDY (11/17/2024 7:20 AM CDT) [facility] - 11/17/2024 3:56 PM CDT This exam was auto finalized to allow images to be scanned to PACS. us External Provider [facility] CT ORDERABLES Final Res ult Performing Organization Address [facility] Phone Number [facility] CLIA # [id number] [place] [address] * CT PRIOR STUDY (11/16/2024 10:05 PM CDT) [facility] - 11/17/2024 3:55 PM CDT This exam was auto finalized to allow images to be scanned to PACS. External Provider [facility] CT ORDERABLES Final Res ult Performing Organization Address [facility] Phone Number [facility] CLIA # [id number] [place] [address] documented in this encounter Visit Diagnoses Diagnosis Single subsegmental pulmonary embolism without acute cor pulmonale (CMS/HCC)- Primary Colitis Other and unspecified noninfectious gastroenteritis and colitis Acute cystitis without hematuria Acute cystitis Constipation Unspecified constipation History of CVA with residual deficit 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 (CMS/HCC) Type 2 diabetes mellitus with hyperglycemia Type II or unspecified type diabetes mellitus without mention of complication, not stated as uncontrolled Atrial fibrillation with RVR (CMS/HCC) Atrial fibrillation New onset atrial fibrillation (CMS/HCC) Atrial fibrillation H/O: stroke Transient ischemic attack (TIA), and cerebral infarction without residual deficits Acute hypoxemic respiratory failure (CMS/HCC) documented in this encounter Administered Medications Active Administered Medications - up to 3 most recent administrations Medication Order MAR Action Action Date Dose Rate Site acetaminophen (TYLENOL) tablet 650 mg 650 mg, Oral, EVERY 6 HOURS PRN, Starting on 11/17/24 at 1452, Until Discontinued, Other (See Comment), See admin instructions, Routine albuterol (PROVENTIL,VENTOLIN) 2.5 mg /3 mL (0.083 %) inhalation solution 2.5 mg 2.5 mg, Inhalation, EVERY 6 HOURS PRN RESPIRATORY, Starting on 11/17/24 at 1538, Until Discontinued, Shortness of Breath, Wheezing, Routine aspirin (MABEL CHEWABLE) chewable tablet 81 mg 81 mg, Oral, DAILY WITH BREAKFAST, First dose on Tue11/18/24 at 0800, Until Discontinued, Routine Given 11/18/2024 9:44 AM CDT 81 mg atorvastatin (LIPITOR) tablet 40 mg 40 mg, Oral, DAILY AT BEDTIME, First dose on 11/17/24 at 2100, Until Discontinued, Routine Given 11/18/2024 8:44 PM CDT 40 mg Given 11/17/2024 8:41 PM CDT 40 mg cefTRIAXone (ROCEPHIN) 2,000 mg in sodium chloride 0.9% 50 mL IVPB (MBP) 2,000 mg, IV, EVERY 24 HOURS (DAILY), 5 doses, First dose on 11/17/24 at 1545, Last dose on Tue11/21/24 at 0900, Routine, Antibiotic Indication: Urinary Tract Infection(UTI) / Infection New Bag 11/18/2024 9:40 AM CDT 2,000 mg 118 mL/hr New Bag 11/17/2024 5:49 PM CDT 2,000 mg 118 mL/hr dextrose 5 % - sodium chloride 0.9 % infusion IV, at 40 mL/hr, SEE ADMIN INSTRUCTIONS, Starting on 11/17/24 at 1703, Until 01/16/25 at 1702, Routine dextrose 50% (D50) syringe 12.5 Gram 12.5 Gram, IV, SEE ADMIN INSTRUCTIONS, Starting on 11/17/24 at 1703, Until Discontinued, Routine dextrose 50% (D50) syringe 25 Gram 25 Gram, IV, SEE ADMIN INSTRUCTIONS, Starting on 11/17/24 at 1703, Until Discontinued, Routine dilTIAZem (CARDIZEM) 100 mg in sodium chloride 0.9% 100 mL infusion (ADV) 0-15 mg/hr (0-15 mL/hr), IV, TITRATE, Starting on 11/18/24 at 1030, Until Discontinued, Should this infusion be titrated? Yes, Initial infusion dose? 5 mg/hr, Titration Dose Increment? 2.5 mg/hr, Titration Interval? 30 minutes, Heart Rate Goal? Equal to or Less than 120 New Bag 11/19/2024 3:14 AM CDT 5 mg/hr 5 mL/hr Rate Change 11/18/2024 7:40 PM CDT 7.5 mg/hr 7.5 mL/hr Rate Verify 11/18/2024 7:39 PM CDT 7.5 mg/hr 7.5 mL/hr glucagon HCL 1 mg/mL injection 1 mg 1 mg, IM, SEE ADMIN INSTRUCTIONS, Starting on 11/17/24 at 1703, Until Discontinued, Routine guaiFENesin (ROBITUSSIN) 100 mg/5 mL oral solution 200 mg 200 mg, Oral, EVERY 4 HOURS PRN, Starting on 11/17/24 at 1452, Until Discontinued, Other (See Comment), to thin secretions, Routine heparin in 0.45% NaCl 25,000 unit/250 mL infusion 14 Units/kg/hr 67.1 kg (9.394 mL/hr, rounded to 9.4 mL/hr), IV, TITRATE, Starting on 11/17/24 at 1600, Until Discontinued, Indication: Acute or Chronic VTE/PE/DVT, Dosing by: PER PROTOCOL: Delegate to facility protocol per indication, Re-bolus within Protocol? Yes, allow re-bolus Rate Change 11/19/2024 6:36 AM CDT 14 Units/kg/hr 9.4 mL/hr Rate Change 11/19/2024 12:13 AM CDT 12 Units/kg/hr 8.1 mL/ hr New Bag 11/18/2024 6:58 PM CDT 15 Units/kg/hr 10.1 mL/h r HYDROmorphone (PF) (DILAUDID) injection 0.3 mg 0.3 mg, IV, EVERY 3 HOURS PRN, Starting on 11/17/24 at 1857, Until Discontinued, Pain (See admin instructions), Routine Given 11/18/2024 3:12 PM CDT 0.3 mg Given 11/17/2024 7:36 PM CDT 0.3 mg insulin lispro (HumaLOG,ADMELOG) injection 0-18 Units 0-18 Units, subCUT, FOUR TIMES DAILY WITH MEALS AND AT BEDTIME, First dose on 11/17/24 at 1800, Until Discontinued, Routine Given 11/18/2024 5:22 PM CDT 6 Units Arm, Left Upper Given 11/18/2024 9:19 AM CDT 6 Units Ar m, Left Upper Given 11/17/2024 8:47 PM CDT 6 Units Ab dominal Tissue ipratropium-albuteroL (DUONEB) 0.5 mg-3 mg(2.5 mg base)/3 mL inhalation solution 3 mL 3 mL, Inhalation, EVERY 6 HOURS PRN RESPIRATORY, Starting on 11/17/24 at 1545, Until Discontinued, Other (See Comment), for wheezing, Routine metoclopramide (REGLAN) 5 mg/mL injection 10 mg 10 mg, IV, EVERY 6 HOURS PRN, Starting on 11/17/24 at 1452, Until Discontinued, Nausea/Emesis, Routine metroNIDAZOLE (FLAGYL) IVPB 500 mg 500 mg, IV, EVERY 8 HOURS, 15 doses, First dose on 11/17/24 at 1600, Last dose on [place] 11/22/24 at 0500, Routine, Antibiotic Indication: Other: Enter in Comments, Antibiotic Indication: concern for Colitis New Bag 11/19/2024 5:41 AM CDT 500 mg 100 mL/hr New Bag 11/18/2024 8:51 PM CDT 500 mg 100 mL/hr New Bag 11/18/2024 4:30 AM CDT 500 mg 100 mL/hr naloxone (NARCAN) 0.4 mg/mL injection 0.1 mg 0.1 mg, IV, SEE ADMIN INSTRUCTIONS, Starting on 11/17/24 at 1452, Until Discontinued, Routine ondansetron (ZOFRAN) 4 mg/2 mL injection 4 mg 4 mg, IV, EVERY 6 HOURS PRN, Starting on 11/17/24 at 1452, Until Discontinued, Nausea/Emesis, Routine Given 11/18/2024 3:17 PM CDT 4 mg Given 11/17/2024 6:31 PM CDT 4 mg oxyCODONE (ROXICODONE) tablet 5 mg 5 mg, Oral, EVERY 6 HOURS PRN, Starting on 11/17/24 at 1700, Until Discontinued, Pain (See admin instructions), Routine Given 11/18/2024 8:46 PM CDT 5 mg Given 11/18/2024 11:22 AM CDT 5 mg Given 11/17/2024 6:26 PM CDT 5 mg polyethylene glycol (MIRALAX) packet 17 Gram 17 Gram, Oral, DAILY, First dose on 11/18/24 at 0900, Until Discontinued, Routine replacement reminder - Phosphorus *FOR USE IN THE ICU SETTING ONLY - Discontinue order if patient NOT in ICU setting* ALERT: ENTERAL DOSE NOT FOR USE IN CTS PATIENTS ON DAY OF SURGERY AND POST OP DAY 1. *Follow instructions for labs ordered by Provider OR as a post replacement check as indicated below. *If Patient on dialysis, has serum creatinine 1.8 or GREATER, doubled creatinine in last 24 hours, OR urine output LESS than 0.5 mL/kg/hr contact provider PRIOR to administering replacement. For non-critical lab values, send Rx message to obtain replacement with next delivery after dose has been verified. Call pharmacy to expedite CRITICAL values needing more immediate replacement. For Phosphate level LESS than 1.1 mg/dL: If Potassium 3.8 mmol/L or GREATER: administer 30 mmol SODIUM Phosphate IVPB for 1 dose. If Potassium LESS than 3.8 mmol/L: administer 30 mmol POTASSIUM Phosphate IVPB for 1 dose. *Do NOT replace at same time as Potassium Chloride. *Notify Provider AFTER initiating replacement. TWO hours POST infusion, obtain phosphate and potassium level. If phosphate LESS than 1.1 mg/dL, repeat replacement as indicated. After replacement, verify repeat phosphate level ordered with AM labs. For Phosphate level 1.1 - 2.5 mg/dL: Administer 1 packet PhosNak enterally for 1 dose. If enteral route unavailable, administer SODIUM Phosphate 15 mmol IVPB for 1 dose., Routine, Starting on 11/17/24 at 1452 replacement reminder - Potassium *FOR USE IN THE ICU SETTING ONLY - Discontinue order if patient NOT in ICU setting* ALERT: ENTERAL DOSE NOT FOR USE IN CTS PATIENTS ON DAY OF SURGERY AND POST OP DAY 1. *Follow instructions for labs ordered by Provider OR as a post replacement check as indicated below. *If Patient on dialysis, has serum creatinine 1.8 or GREATER, doubled creatinine in last 24 hours, OR urine output LESS than 0.5 mL/kg/hr contact provider PRIOR to administering replacement. For non-critical lab values, send Rx message to obtain replacement with next delivery after dose has been verified. Call pharmacy to expedite CRITICAL values needing more immediate replacement. For Potassium level LESS than 3 mmol/L: Administer 40 mEq IVPB for 2 doses OR 20 mEq IVPB for 4 doses (as per local formulary). *Notify Provider AFTER initiating replacement. TWO hours POST infusion, obtain potassium and magnesium level. If potassium LESS than 3.5 mmol/L, repeat replacement as indicated. After replacement, verify repeat potassium level ordered with AM labs. For Potassium level 3 - 3.5 mmol/L: Administer 40 mEq enterally for 2 doses. If enteral route unavailable, administer 40 mEq IVPB for 2 doses OR 20 mEq IVPB for 4 doses (as per local formulary). For Potassium level 3.6 - 4 mmol/L: Administer 40 mEq enterally for 1 dose. If enteral route unavailable, administer 40 mEq IVPB for 1 dose OR 20 mEq IVPB for 2 doses (as per local formulary)., Routine, Starting on 11/17/24 at 1452 replacement reminder-Calcium *FOR USE IN THE ICU SETTING ONLY - Discontinue order if patient NOT in ICU setting* *Follow instructions for labs ordered by Provider OR as a post replacement check as indicated below. *Avoid Calcium replacement in patients with brain injury. *If Patient on dialysis, has serum creatinine 1.8 or GREATER, doubled creatinine in last 24 hours, OR urine output LESS than 0.5 mL/kg/hr contact provider PRIOR to administering replacement. For non-critical lab values, send Rx message to obtain replacement with next delivery after dose has been verified. For critically low Calcium, called by lab: RN coordinate with pharmacist for Calcium CHLORIDE 1 gram to be given IV push over 5 minutes, if IVPB not available. Administer into large vein (central preferred). Avoid use of veins in hand, scalp or foot. For IONIZED Calcium level LESS than 3.5 mg/dL (or 0.8 mmol/L): Administer Calcium Gluconate 1,000 mg IVPB for 1 dose. *Notify Provider AFTER initiating replacement. TWO hours POST infusion, obtain ionized calcium level. If LESS than 3.5 mg/dL (or 0.8 mmol/L), contact provider. After replacement, verify repeat ionized calcium level ordered with AM labs., Routine, Starting on 11/17/24 at 1452 replacement reminder-Magnesium *FOR USE IN THE ICU SETTING ONLY - Discontinue order if patient NOT in ICU setting* *Follow instructions for labs ordered by Provider OR as a post replacement check as indicated below. *If Patient on dialysis, has serum creatinine 1.8 or GREATER, doubled creatinine in last 24 hours, OR urine output LESS than 0.5 mL/kg/hr contact provider PRIOR to administering replacement. For non-critical lab values, send Rx message to obtain replacement with next delivery after dose has been verified. Call pharmacy to expedite CRITICAL values needing more immediate replacement. For Magnesium level LESS than 1 mg/dL: Administer 4 grams IVPB for 1 dose. *Notify Provider AFTER initiating replacement. EIGHT hours POST infusion, obtain magnesium level. If LESS than 1.5 mg/dL, repeat replacement as indicated. For Magnesium level 1 - 1.5 mg/dL: Administer 4 grams IVPB for 1 dose. For Magnesium level 1.6 - 1.9 mg/dL: Administer 2 grams IVPB for 1 dose., Routine, Starting on 11/17/24 at 1452 sennosides-docusate sodium (SENNA-S) 8.6-50 mg per tablet 1 Tablet 1 Tablet, Oral, TWO TIMES DAILY, First dose on 11/17/24 at 2100, Until Discontinued, Routine Given 11/18/2024 8:44 PM CDT 1 Tablet Given 11/17/2024 8:41 PM CDT 1 Tablet sodium chloride 0.9 % infusion IV, at 75 mL/hr, CONTINUOUS, Starting on Tue11/18/24 at 0815, Until 11/19/24 at 1912, Routine Rate Verify 11/18/2024 6:53 PM CDT 75 mL/ hr Restarted 11/18/2024 6:51 PM CDT 75 mL/hr Restarted 11/18/2024 5:19 PM CDT 75 mL/hr sodium chloride 0.9% vial - DILUENT 10 mL, IV, SEE ADMIN INSTRUCTIONS, Starting on 11/17/24 at 1542, Until Discontinued, Routine Given 11/17/2024 3:00 PM CDT 10 mL sodium chloride flush injection 10 mL 10 mL, IV, SEE ADMIN INSTRUCTIONS, Starting on 11/17/24 at 1542, Until Discontinued, Routine Given 11/17/2024 3:00 PM CDT 10 mL Inactive Administered Medications - up to 3 most recent administrations Medication Order MAR Action Action Date Dose Rate Site dextrose 5 % - lactated ringers infusion IV, at 60 mL/hr, CONTINUOUS, Starting on 11/17/24 at 1500, Until [place] 11/18/24 at 0800, Routine Restarted 11/18/2024 5:48 AM CDT 60 mL/hr Rate Verify 11/17/2024 9:00 PM CDT 60 mL/hr Rate Verify 11/17/2024 8:00 PM CDT 60 mL/hr digoxin (LANOXIN) injection 250 mcg 250 mcg, IV, ONE TIME ONLY, 1 dose, On [place] 11/18/24 at 1045, Routine, Reason for Use: Atrial fibrillation (rate control) Given 11/18/2024 11:08 AM CDT 250 mcg digoxin (LANOXIN) injection 250 mcg 250 mcg, IV, ONE TIME ONLY, 1 dose, On [place] 11/18/24 at 1615, Routine, Reason for Use: Atrial fibrillation (rate control) Given 11/18/2024 4:19 PM CDT 250 mcg heparin injection 2,100 Units 2,100 Units (rounded from 2,067 Units = 30 Units/kg 68.9 kg), IV, ONE TIME ONLY, 1 dose, On 11/19/24 at 0645, Routine Given 11/19/2024 6:34 AM CDT 2,100 Units heparin injection 4,100 Units 4,100 Units (rounded from 4,134 Units = 60 Units/kg 68.9 kg), IV, ONE TIME ONLY, 1 dose, On [place] 11/18/24 at 1600, Routine Given 11/18/2024 3:56 PM CDT 4,100 Units lactulose (ENULOSE) 10 gram/15 mL oral solution 30 mL 30 mL, Oral, ONE TIME ONLY, 1 dose, On [facility] 11/17/24 at 1730, Routine Given 11/17/2024 5:50 PM CDT 30 mL morphine 4 mg/mL injection 2 mg 2 mg, IV, EVERY 2 HOURS PRN, Starting on 11/17/24 at 1523, Until 11/17/24 at 1857, Pain (See admin instructions), Routine Given 11/17/2024 5:52 PM CDT 2 mg perflutren lipid microspheres (DEFINITY) 1.1 mg/mL injection 2 mL 2 mL, IV, INTRA-PROCEDURE ONCE, 1 dose, Starting on 11/17/24 at 1542, Until 11/17/24 at 1500 Contrast Given 11/17/2024 3:00 PM CDT 2 mL sodium chloride 0.9 % bolus solution 500 mL 500 mL, IV, ONE TIME ONLY, 1 dose, On 11/17/24 at 1545, at 999 mL/hr, Administer over 30 Minutes, Routine New Bag 11/17/2024 3:42 PM CDT 500 mL 999 mL/hr sodium PHOSPHATE 15 mmol in sodium chloride 0.9 % 105 mL IVPB 15 mmol, IV, ONE TIME ONLY, 1 dose, On 11/18/24 at 0900, Routine Rate Verify 11/18/2024 11:23 AM CDT 40 mL/hr Restarted 11/18/2024 11:16 AM CDT 40 mL/hr Restarted 11/18/2024 10:23 AM CDT 40 mL/hr documented in this encounter Active and Recently Administered Medications Times are shown in CDT. Scheduled Medication Order 11/17/2024 11/18/2024 11/19/2024 aspirin (MABEL CHEWABLE) chewable tablet 81 mg 81 mg, Oral, DAILY WITH BREAKFAST, First dose on 11/18/24 at 0800, Until Discontinued, Routine 0944 (Given - Provider: Stephen Lara RN) 0800 (Due) atorvastatin (LIPITOR) tablet 40 mg 40 mg, Oral, DAILY AT BEDTIME, First dose on 11/17/24 at 2100, Until Discontinued, Routine 2040 (Given - Provider: Nikhil An RN) 2043 (Given - Provider: Susanna Melendrez RN) 2100 (Due) cefTRIAXone (ROCEPHIN) 2,000 mg in sodium chloride 0.9% 50 mL IVPB (MBP) 2,000 mg, IV, EVERY 24 HOURS (DAILY), 5 doses, First dose on 11/17/24 at 1545, Last dose on Tue11/21/24 at 0900, Routine, Antibiotic Indication: Urinary Tract Infection(UTI) / Infection 1749 (New Bag - Provider: Dedrick Meza RN)1819 (Stopped - Provider: Dedrick Meza RN) 0940 (New Bag - Provider: Stephen Lara RN)1005 (Stopped - Provider: Stephen Lara RN)1010 (Stopped - Provider: Stephen Lara RN) 0900 (Due) dextrose 5 % - sodium chloride 0.9 % infusion IV, at 40 mL/hr, SEE ADMIN INSTRUCTIONS, Starting on 11/17/24 at 1703, Until 01/16/25 at 1702, Routine dextrose 50% (D50) syringe 12.5 Gram 12.5 Gram, IV, SEE ADMIN INSTRUCTIONS, Starting on 11/17/24 at 1703, Until Discontinued, Routine dextrose 50% (D50) syringe 25 Gram 25 Gram, IV, SEE ADMIN INSTRUCTIONS, Starting on 11/17/24 at 1703, Until Discontinued, Routine digoxin (LANOXIN) injection 250 mcg (COMPLETED) 250 mcg, IV, ONE TIME ONLY, 1 dose, On 11/18/24 at 1045, Routine, Reason for Use: Atrial fibrillation (rate control) 1108 (Given - Provider: Stephen Lara RN) digoxin (LANOXIN) injection 250 mcg (COMPLETED) 250 mcg, IV, ONE TIME ONLY, 1 dose, On 11/18/24 at 1615, Routine, Reason for Use: Atrial fibrillation (rate control) 1619 (Given - Provider: Stephen Lara RN) glucagon HCL 1 mg/mL injection 1 mg 1 mg, IM, SEE ADMIN INSTRUCTIONS, Starting on 11/17/24 at 1703, Until Discontinued, Routine heparin injection 2,100 Units (COMPLETED) 2,100 Units (rounded from 2,067 Units = 30 Units/kg 68.9 kg), IV, ONE TIME ONLY, 1 dose, On 11/19/24 at 0645, Routine 0634 (Given - Provider: Susanna Melendrez RN) heparin injection 4,100 Units (COMPLETED) 4,100 Units (rounded from 4,134 Units = 60 Units/kg 68.9 kg), IV, ONE TIME ONLY, 1 dose, On 11/18/24 at 1600, Routine 1556 (Given - Provider: Stephen Lara, DANIELLE) insulin lispro (HumaLOG,ADMELOG) injection 0-18 Units 0-18 Units, subCUT, FOUR TIMES DAILY WITH MEALS AND AT BEDTIME, First dose on 11/17/24 at 1800, Until Discontinued, Routine 1800 (Not Given - Provider: Dedrick Meza RN - Reason: Lab results / vitals)2047 (Given - Provider: Nikhil An RN) 0919 (Given - Provider: Betina Melgar, DANIELLE)1200 (Not Given - Provider: Stephen Lara, DANIELLE - Reason: Lab results / vitals)1722 (Given - Provider: tSephen Lara, DANIELLE)2100 (Not Given - Provider: Susanna Melendrez, DANIELLE - Reason: Lab results / vitals) 0800 (Due)1200 (Due)1700 (Due)2100 (Due) lactulose (ENULOSE) 10 gram/15 mL oral solution 30 mL (COMPLETED) 30 mL, Oral, ONE TIME ONLY, 1 dose, On 11/17/24 at 1730, Routine 1750 (Given - Provider: Dedrick Meza RN) metroNIDAZOLE (FLAGYL) IVPB 500 mg 500 mg, IV, EVERY 8 HOURS, 15 doses, First dose on 11/17/24 at 1600, Last dose on Annie 11/22/24 at 0500, Routine, Antibiotic Indication: Other: Enter in Comments, Antibiotic Indication: concern for Colitis 183 (New Bag - Provider: Dedrick Meza RN)193 (Stopped - Provider: Dedrick Meza RN)2040 (New Bag - Provider: Nikhil An, DANIELLE)2100 (Rate Verify - Provider: Nikhil An RN)2140 (Stopped - Provider: Alyssa Small, RN) 0430 (New Bag - Provider: Alyssa Small, RN)0530 (Stopped - Provider: Alyssa Small, RN)1300 (Due)2050 (New Bag - Provider: Susanna Melendrez, DANIELLE)215 (Stopped - Provider: Susanna Melendrez RN) 0541 (New Bag - Provider: Susanna Melendrez RN)0641 (Due: Stopped - Provider: Susanna Melendrez RN)1300 (Due)2100 (Due) naloxone (NARCAN) 0.4 mg/mL injection 0.1 mg 0.1 mg, IV, SEE ADMIN INSTRUCTIONS, Starting on 11/17/24 at 1452, Until Discontinued, Routine perflutren lipid microspheres (DEFINITY) 1.1 mg/mL injection 2 mL (COMPLETED) 2 mL, IV, INTRA-PROCEDURE ONCE, 1 dose, Starting on 11/17/24 at 1542, Until 11/17/24 at 1500 1500 (Contrast Given - Provider: Arely Nesbitt RDCS) polyethylene glycol (MIRALAX) packet 17 Gram 17 Gram, Oral, DAILY, First dose on 11/18/24 at 0900, Until Discontinued, Routine 0900 (Not Given - Provider: Stephen Lara RN - Reason: Patient condition) 0900 (Due) replacement reminder - Phosphorus *FOR USE IN THE ICU SETTING ONLY - Discontinue order if patient NOT in ICU setting* ALERT: ENTERAL DOSE NOT FOR USE IN CTS PATIENTS ON DAY OF SURGERY AND POST OP DAY 1. *Follow instructions for labs ordered by Provider OR as a post replacement check as indicated below. *If Patient on dialysis, has serum creatinine 1.8 or GREATER, doubled creatinine in last 24 hours, OR urine output LESS than 0.5 mL/kg/hr contact provider PRIOR to administering replacement. For non-critical lab values, send Rx message to obtain replacement with next delivery after dose has been verified. Call pharmacy to expedite CRITICAL values needing more immediate replacement. For Phosphate level LESS than 1.1 mg/dL: If Potassium 3.8 mmol/L or GREATER: administer 30 mmol SODIUM Phosphate IVPB for 1 dose. If Potassium LESS than 3.8 mmol/L: administer 30 mmol POTASSIUM Phosphate IVPB for 1 dose. *Do NOT replace at same time as Potassium Chloride. *Notify Provider AFTER initiating replacement. TWO hours POST infusion, obtain phosphate and potassium level. If phosphate LESS than 1.1 mg/dL, repeat replacement as indicated. After replacement, verify repeat phosphate level ordered with AM labs. For Phosphate level 1.1 - 2.5 mg/dL: Administer 1 packet PhosNak enterally for 1 dose. If enteral route unavailable, administer SODIUM Phosphate 15 mmol IVPB for 1 dose., Routine, Starting on 11/17/24 at 1452 replacement reminder - Potassium *FOR USE IN THE ICU SETTING ONLY - Discontinue order if patient NOT in ICU setting* ALERT: ENTERAL DOSE NOT FOR USE IN CTS PATIENTS ON DAY OF SURGERY AND POST OP DAY 1. *Follow instructions for labs ordered by Provider OR as a post replacement check as indicated below. *If Patient on dialysis, has serum creatinine 1.8 or GREATER, doubled creatinine in last 24 hours, OR urine output LESS than 0.5 mL/kg/hr contact provider PRIOR to administering replacement. For non-critical lab values, send Rx message to obtain replacement with next delivery after dose has been verified. Call pharmacy to expedite CRITICAL values needing more immediate replacement. For Potassium level LESS than 3 mmol/L: Administer 40 mEq IVPB for 2 doses OR 20 mEq IVPB for 4 doses (as per local formulary). *Notify Provider AFTER initiating replacement. TWO hours POST infusion, obtain potassium and magnesium level. If potassium LESS than 3.5 mmol/L, repeat replacement as indicated. After replacement, verify repeat potassium level ordered with AM labs. For Potassium level 3 - 3.5 mmol/L: Administer 40 mEq enterally for 2 doses. If enteral route unavailable, administer 40 mEq IVPB for 2 doses OR 20 mEq IVPB for 4 doses (as per local formulary). For Potassium level 3.6 - 4 mmol/L: Administer 40 mEq enterally for 1 dose. If enteral route unavailable, administer 40 mEq IVPB for 1 dose OR 20 mEq IVPB for 2 doses (as per local formulary)., Routine, Starting on 11/17/24 at 1452 replacement reminder-Calcium *FOR USE IN THE ICU SETTING ONLY - Discontinue order if patient NOT in ICU setting* *Follow instructions for labs ordered by Provider OR as a post replacement check as indicated below. *Avoid Calcium replacement in patients with brain injury. *If Patient on dialysis, has serum creatinine 1.8 or GREATER, doubled creatinine in last 24 hours, OR urine output LESS than 0.5 mL/kg/hr contact provider PRIOR to administering replacement. For non-critical lab values, send Rx message to obtain replacement with next delivery after dose has been verified. For critically low Calcium, called by lab: RN coordinate with pharmacist for Calcium CHLORIDE 1 gram to be given IV push over 5 minutes, if IVPB not available. Administer into large vein (central preferred). Avoid use of veins in hand, scalp or foot. For IONIZED Calcium level LESS than 3.5 mg/dL (or 0.8 mmol/L): Administer Calcium Gluconate 1,000 mg IVPB for 1 dose. *Notify Provider AFTER initiating replacement. TWO hours POST infusion, obtain ionized calcium level. If LESS than 3.5 mg/dL (or 0.8 mmol/L), contact provider. After replacement, verify repeat ionized calcium level ordered with AM labs., Routine, Starting on 11/17/24 at 1452 replacement reminder-Magnesium *FOR USE IN THE ICU SETTING ONLY - Discontinue order if patient NOT in ICU setting* *Follow instructions for labs ordered by Provider OR as a post replacement check as indicated below. *If Patient on dialysis, has serum creatinine 1.8 or GREATER, doubled creatinine in last 24 hours, OR urine output LESS than 0.5 mL/kg/hr contact provider PRIOR to administering replacement. For non-critical lab values, send Rx message to obtain replacement with next delivery after dose has been verified. Call pharmacy to expedite CRITICAL values needing more immediate replacement. For Magnesium level LESS than 1 mg/dL: Administer 4 grams IVPB for 1 dose. *Notify Provider AFTER initiating replacement. EIGHT hours POST infusion, obtain magnesium level. If LESS than 1.5 mg/dL, repeat replacement as indicated. For Magnesium level 1 - 1.5 mg/dL: Administer 4 grams IVPB for 1 dose. For Magnesium level 1.6 - 1.9 mg/dL: Administer 2 grams IVPB for 1 dose., Routine, Starting on 11/17/24 at 1452 sennosides-docusate sodium (SENNA-S) 8.6-50 mg per tablet 1 Tablet 1 Tablet, Oral, TWO TIMES DAILY, First dose on 11/17/24 at 2100, Until Discontinued, Routine 2040 (Given - Provider: Nikhil An RN) 0900 (Not Given - Provider: Stephen Lara RN - Reason: Patient condition)2043 (Given - Provider: Susanna Melendrez RN) 0900 (Due)2100 (Due) sodium chloride 0.9 % bolus solution 500 mL (COMPLETED) 500 mL, IV, ONE TIME ONLY, 1 dose, On 11/17/24 at 1545, at 999 mL/hr, Administer over 30 Minutes, Routine 1542 (New Bag - Provider: Dedrick Meza RN)1612 (Stopped - Provider: Dedrick Meza RN) sodium chloride 0.9% vial - DILUENT 10 mL, IV, SEE ADMIN INSTRUCTIONS, Starting on 11/17/24 at 1542, Until Discontinued, Routine 1500 (Given - Provider: Arely Nesbitt RDCS) sodium chloride flush injection 10 mL 10 mL, IV, SEE ADMIN INSTRUCTIONS, Starting on 11/17/24 at 1542, Until Discontinued, Routine 1500 (Given - Provider: Arely Nesbitt RDCS) sodium PHOSPHATE 15 mmol in sodium chloride 0.9 % 105 mL IVPB (COMPLETED) 15 mmol, IV, ONE TIME ONLY, 1 dose, On 11/18/24 at 0900, Routine 1008 (New Bag - Provider: Stephen Lara RN)1019 (Paused - Provider: Stephen Lara RN)1023 (Restarted - Provider: Stephen Lara RN)1023 (Stopped - Provider: Stephen Lara RN)1116 (Restarted - Provider: Stephen Lara RN)1123 (Rate Verify - Provider: Stephen Lara RN)1308 (Stopped - Provider: Stephen Lara RN) Continuous Medication Order 11/17/2024 11/18/2024 11/19/2024 dextrose 5 % - lactated ringers infusion (CANCELED) IV, at 60 mL/hr, CONTINUOUS, Starting on 11/17/24 at 1500, Until 11/18/24 at 0800, Routine 1536 (New Bag - Provider: Dedrick Meza RN)2000 (Rate Verify - Provider: Nikhil An RN)2100 (Rate Verify - Provider: Nikhil An RN) 0544 (Paused - Provider: Stephen Lara RN)0548 (Restarted - Provider: Stephen Lara RN)0800 (Stopped - Provider: Stephen Lara RN - Comment: [Order ends at this time. Document a Stopped action when infusion is complete.]) dilTIAZem (CARDIZEM) 100 mg in sodium chloride 0.9% 100 mL infusion (ADV) 0-15 mg/hr (0-15 mL/hr), IV, TITRATE, Starting on 11/18/24 at 1030, Until Discontinued, Should this infusion be titrated? Yes, Initial infusion dose? 5 mg/hr, Titration Dose Increment? 2.5 mg/hr, Titration Interval? 30 minutes, Heart Rate Goal? Equal to or Less than 120 1023 (New Bag - Provider: Stephen Lara RN)1025 (Rate Verify - Provider: Stephen Lara RN)1026 (Rate Change - Provider: Stephen Lara RN)1030 (Rate Change - Provider: Stephen Lara RN)1104 (Rate Change - Provider: Stephen Lara RN)1630 (New Bag - Provider: Stephen Lara RN)1850 (Rate Change - Provider: Stephen Lara RN)1907 (Rate Change - Provider: Stephen Lara RN)1939 (Rate Verify - Provider: Susanna Melendrez RN)1940 (Rate Change - Provider: Susanna Melendrez, DANIELLE) 0314 (New Bag - Provider: Susanna Melendrez, DANIELLE) heparin in 0.45% NaCl 25,000 unit/250 mL infusion 14 Units/kg/hr 67.1 kg (9.394 mL/hr, rounded to 9.4 mL/hr), IV, TITRATE, Starting on 11/17/24 at 1600, Until Discontinued, Indication: Acute or Chronic VTE/PE/DVT, Dosing by: PER PROTOCOL: Delegate to facility protocol per indication, Re-bolus within Protocol? Yes, allow re-bolus 1546 (New Bag - Provider: Dedrick Meza, DANIELLE)2000 (Rate Verify - Provider: Nikhil An, DANIELLE)2100 (Rate Verify - Provider: Nikhil An RN)2337 (Stopped - Provider: Alyssa Small, RN) 0039 (Rate Change - Provider: Alyssa Small, RN)0640 (Stopped - Provider: Alyssa Small, RN)0740 (Rate Change - Provider: Stephen Lara RN)1025 (Rate Verify - Provider: Stephen Lara RN)1547 (Rate Change - Provider: Stephen Lara RN)1858 (New Bag - Provider: Stephen Lara RN)2307 (Stopped - Provider: Susanna Melendrez, RN) 0013 (Rate Change - Provider: Susanna Melendrez, RN)0636 (Rate Change - Provider: Susanna Melendrez, RN) sodium chloride 0.9 % infusion IV, at 75 mL/hr, CONTINUOUS, Starting on 11/18/24 at 0815, Until 11/19/24 at 1912, Routine 0937 (New Bag - Provider: Stephen Lara RN)0939 (Rate Verify - Provider: Stephen Lara RN)0940 (Paused - Provider: Stephen Lara RN)1008 (Restarted - Provider: Stephen Lara RN)1008 (Stopped - Provider: Stephen Lara RN)1405 (Restarted - Provider: Stephen Lara RN)1645 (Paused - Provider: Stephen Lara RN)1719 (Restarted - Provider: Stephen Lara RN)1841 (Paused - Provider: Stehpen Lara RN)1841 (Paused - Provider: Stephen Lara RN)1841 (Paused - Provider: Stephen Lara RN)1841 (Paused - Provider: Stephen Lara RN)1841 (Paused - Provider: Stephen Lara RN)1842 (Paused - Provider: Stephen Lara RN)1851 (Restarted - Provider: Stephen Lara RN)1853 (Rate Verify - Provider: Stephen Lara RN) 1912 (Due: Order Ending - Provider: Stephen Lara RN - Comment: [Order ends at this time. Document a Stopped action when infusion is complete.]) PRN Medication Order 11/17/2024 11/18/2024 11/19/2024 acetaminophen (TYLENOL) tablet 650 mg 650 mg, Oral, EVERY 6 HOURS PRN, Starting on 11/17/24 at 1452, Until Discontinued, Other (See Comment), See admin instructions, Routine albuterol (PROVENTIL,VENTOLIN) 2.5 mg /3 mL (0.083 %) inhalation solution 2.5 mg(Linked Group 1) 2.5 mg, Inhalation, EVERY 6 HOURS PRN RESPIRATORY, Starting on 11/17/24 at 1538, Until Discontinued, Shortness of Breath, Wheezing, Routine guaiFENesin (ROBITUSSIN) 100 mg/5 mL oral solution 200 mg 200 mg, Oral, EVERY 4 HOURS PRN, Starting on 11/17/24 at 1452, Until Discontinued, Other (See Comment), to thin secretions, Routine HYDROmorphone (PF) (DILAUDID) injection 0.3 mg 0.3 mg, IV, EVERY 3 HOURS PRN, Starting on 11/17/24 at 1857, Until Discontinued, Pain (See admin instructions), Routine 1936 (Given - Provider: Nikhil An RN) 1512 (Given - Provider: Betina Melgar, DANIELLE) ipratropium-albuteroL (DUONEB) 0.5 mg-3 mg(2.5 mg base)/3 mL inhalation solution 3 mL(Linked Group 1) 3 mL, Inhalation, EVERY 6 HOURS PRN RESPIRATORY, Starting on 11/17/24 at 1545, Until Discontinued, Other (See Comment), for wheezing, Routine metoclopramide (REGLAN) 5 mg/mL injection 10 mg 10 mg, IV, EVERY 6 HOURS PRN, Starting on 11/17/24 at 1452, Until Discontinued, Nausea/Emesis, Routine morphine 4 mg/mL injection 2 mg (CANCELED) 2 mg, IV, EVERY 2 HOURS PRN, Starting on 11/17/24 at 1523, Until 11/17/24 at 1857, Pain (See admin instructions), Routine 1752 (Given - Provider: Dedrick Meza RN) ondansetron (ZOFRAN) 4 mg/2 mL injection 4 mg 4 mg, IV, EVERY 6 HOURS PRN, Starting on 11/17/24 at 1452, Until Discontinued, Nausea/Emesis, Routine 1831 (Given - Provider: Dedrick Meza RN) 1517 (Given - Provider: Betina Melgar RN) oxyCODONE (ROXICODONE) tablet 5 mg 5 mg, Oral, EVERY 6 HOURS PRN, Starting on 11/17/24 at 1700, Until Discontinued, Pain (See admin instructions), Routine 182 (Given - Provider: Dedrick Meza RN) 112 (Given - Provider: Stephen Lara, DANIELLE)2045 (Given - Provider: Susanna Melendrez RN) Linked Groups Order Group 1: ipratropium-albuteroL (DUONEB) 0.5 mg-3 mg(2.5 mg base)/3 mL inhalation solution 3 mLJump to med 3 mL, Inhalation, EVERY 6 HOURS PRN RESPIRATORY, Starting on 11/17/24 at 1545, Until Discontinued, Other (See Comment), for wheezing, Routine And albuterol (PROVENTIL,VENTOLIN) 2.5 mg /3 mL (0.083 %) inhalation solution 2.5 mgJump to med 2.5 mg, Inhalation, EVERY 6 HOURS PRN RESPIRATORY, Starting on 11/17/24 at 1538, Until Discontinued, Shortness of Breath, Wheezing, Routine documented in this encounter Additional Health Concerns Infection Onset Date Last Indicated Resolved Time R/O GI Pathogen 11/18/2024 11/19/2024 documented as of this encounter
--- OUTSIDE RECORDS SUMMARY | 2024-11-19 07:28 | XMS_ITS | Clinical Summary ---
Author Organization [facility] Address [address] [place] [address] Care Team Providers Care Sporting Goods Sales Manager Name Role Phone Johnny Sapp MD Primary Care Provider [phone] Allergies No known active allergies Medications acetaminophen [...] drink = 0.6 oz pur e alcohol) [facility] Utilities Answer Date Recorded In the past 12 months has [facility] 5 examples, [employer], or water [employer] threatened to shut off services in your [...] Comments Blood Pressure 153/93 08/12/2023 8:04 AM ASSISTANT FILM EDITOR RN nurse notified Pulse 83 08/12/2023 8:04 AM ASSISTANT FILM EDITOR Temperature 37.1 C (98.8 F) 08/12/2023 8:04 AM ASSISTANT FILM EDITOR Respiratory Rate 16 08/12/2023 8:04 AM ASSISTANT FILM EDITOR Oxygen Saturation 97% 08/12/2023 8:0 4 AM ASSISTANT FILM EDITOR Inhaled Oxygen Concentration - - Weight 64.5 kg (142 lb 4.8 oz) 08/11/2023 5:00 AM ASSISTANT FILM EDITOR Height 154.9 cm (5' 0.98 ) 08/07/2023 3 :29 AM ASSISTANT FILM EDITOR Body Mass Index 26.9 08/07/2023 3:29 AM ASSISTANT FILM EDITOR Plan of Treatment Health Maintenance Due Date [...] 5 Years) and At-Risk Patients (6 to 49 Years) Aged Out 06/17/2015 No longer eligi [...] age to complete this topic Insurance [address] Advance Directives * Full Code (Latest Code Status on File) Date Activated Date Inactivated Comments 08/07/2023 2:01 AM 08/12/2023 4:04 PM Care Teams Sporting Goods Sales Manager Relationship Specialty Start Date End Date Johnny Sapp MD [address] [place] [address] PCP - General FAMILY PRACTICE 08/12/23
--- OUTSIDE RECORDS SUMMARY | 2024-11-19 07:28 | XMS_ITS | Encounter Summary ---
Author Organization [facility] Address [address] [place] [address] Care Team Providers Care Edging Machine Operator Name Role Phone None, Provider Primary Care Provider Unavail[facility] Johnny Sapp MD Primary Care Provider [phone] Encounter Details Date Type Department Care Team (Late st Contact Info) Description 08/27/2009 Abstract [facility] CONVERSION [address] [place] [address] , Generic Conversion, Social History Tobacco Use [...] on filedocumented in this encounter Care Teams Edging Machine Operator Relationship Specialty Start Date End Date None, Provider, PCP - General 04/03/19 08/11/23 Johnny Sapp MD [address] [place] [id number] PCP - General FAMILY PRACTICE 08/12/23 documented as of this encounter
--- OUTSIDE RECORDS SUMMARY | 2024-11-19 07:28 | XMS_ITS | Encounter Summary ---
Author Organization [facility] Address [address] [place] [address] Care Team Providers Care Unemployment Benefits Claims Taker Name Role Phone None, Provider Primary Care Provider Unavaila ble Johnny Sapp MD Primary Care Provider [phone] Encounter Details Date Type Department Care Team (Late st Contact Info) Description 10/22/2017 Abstract [facility] CONVERSION [address] [place] [address] , Generic Conversion, Social History Tobacco Use [...] on filedocumented in this encounter Care Teams Unemployment Benefits Claims Taker Relationship Specialty Start Date End Date None, Provider, PCP - General 04/03/19 08/11/23 Johnny Sapp MD [address] [place] [id number] PCP - General FAMILY PRACTICE 08/12/23 documented as of this encounter
--- OUTSIDE RECORDS SUMMARY | 2024-11-19 07:28 | XMS_ITS | Clinical Summary ---
Author Organization [facility] Address [address] [place] [address] Phone Care Team Providers Care Supervisor Of Communications Name Role Phone Unavailable Primary Care Provider Unavailabl e Allergies No known active allergies Medications baclofen (LIORESAL) 10 mg tablet Take 10 mg by mouth daily at bedtime. Suspended umeclidinium-v ilanteroL (Anoro Ellipta) 62.5-25 mcg/actuation Disk with Device Take 1 Puff by inhalation daily. Suspended leflunomide (ARAVA) 20 mg Tablet Take 20 mg by mouth daily. Suspended losartan (COZAAR) 100 mg tablet Take 100 mg by mouth daily. Suspended atorvastatin (LIPITOR) 80 mg tablet Take 80 mg by mouth daily. Suspended metFORMIN (GLUCOPHAGE) 500 mg tablet Take 500 mg by mouth daily with breakfast. Suspended FLUoxetine (PROzac) 20 mg tablet Take 20 mg by mouth daily. Suspended Active Problems Problem Noted Date Diagnosed Date Atrial fibrillation with RVR 11/18/2024 New onset atrial fibrillation 11/18/2024 H/O: stroke 11/18/2024 Acute hypoxemic respiratory failure 11/18/2024 Single subsegmental pulmonar y embolism without acute cor pulmonale 11/17/2024 Colitis 11/17/2024 Acute cystitis without hematuria 11/17/2024 Constipation 11/17/2024 History of CVA with residual deficit 11/17/2024 Hemiparesis of right dominan t side as late effect of cerebral infarction 11/17/2024 Type 2 diabetes mellitus with hyperglycemia 11/06 Encounters Date Type Department Care Team Description 11/17/2024 2:27 PM CDT - Present [facility] [address] [place] [address] Paco Salas MD Raval, MD De Scott Govindarajulu K, MD Syed, Mauro Salazar MD Single subsegmental pulmonary embolism without acute cor pulmonale (CMS/HCC) from Last 3 Months Social History Tobacco Use Types Packs/Day Years [...] Mass Index 25.29 11/17/2024 2:00 PM CDT Plan of Treatment Health Maintenance Due Date Last Done Comments DIABETES ANNUAL FOOT EXAM 1985 DIABETES ANNUAL RETINAL EXAM 1985 DIABETES MICROALBUMIN ANNUAL SCREEN 1985 DTAP/TDAP/TD VACCINES (1 - Tdap) 1986 HEPATITIS B VACCINES (1 of 3 - 19+ 3-dose series) 1986 Preventative Visit-Managed Medicaid 1986 HPV/Cotest (21-29) 1988 CERVICAL CANCER SCREENING 1997 HPV/Cotest (30-65) 1997 PAP SMEAR 1997 BREAST CANCER SCREENING 2007 COLORECTAL SCREENING 2012 Colorectal Cancer Screening 2012 FIT-DNA Q 3 years 2012 FIT/FOBT Q 1 year 2012 Flex Sig/CT Colonography Q 5 years 2012 ZOSTER VACCINE (1 of 2) 2017 INFLUENZA VACCINE (#1) 2024 DIABETES HBA1C Q 6 MONTHS 05/19/2025 11/17/2024, LDL CHOLESTEROL ANNUAL 11/17/2025 11/17/2024 Procedures * The patient is currently admitted. The information in this section might not be complete until the patient is discharged. Procedure Name Priority Date/Time Associated Diagnosis Comments PTT Timed Study 11/19/2024 5:39 AM CDT PHOSPHORUS Routine 11/19/2024 5:39 AM CDT MAGNESIUM LEVEL Routine 11/19/2024 5:39 AM CDT BASIC METABOLIC PANEL Routine 11/19/2024 5:39 AM CDT CBC WITH DIFFERENTIAL Routine 11/19/2024 5:39 AM [...] POC GLUCOSE Routine 11/18/2024 7:20 AM CDT TSH Routine 11/18/2024 5:51 AM CDT IRON, TIBC, AND PERCENT SATURATION Routine 11/18/2024 5:51 AM CDT PTT Timed Study 11/18/2024 5:51 AM CDT PHOSPHORUS Routine 11/18/2024 5:51 AM CDT MAGNESIUM LEVEL Routine 11/18/2024 5:51 AM CDT BASIC METABOLIC PANEL Routine 11/18/2024 5:51 AM CDT CBC WITH DIFFERENTIAL Routine 11/18/2024 5:51 AM CDT US LOW EXT JOE DUPLEX COMP BILAT Routine 11/17/2024 11:13 PM CDT PTT Stat 11/17/2024 10:01 PM CDT UNFRACTIONATED HEPARIN ACTIVITY Timed Study 11/17/2024 10:01 PM CDT POC GLUCOSE Routine 11/17/2024 9:39 PM CDT POC GLUCOSE Routine 11/17/2024 8:45 PM CDT EXTRA TUBE (URINE CONTAINER) Routine 11/17/2024 6:11 PM CDT EXTRA TUBE Routine 11/17/2024 6:11 PM CDT EXTRA TUBE (URINE OSBORN) Routine 11/18/19 6:11 PM CDT URINALYSIS W/REFLEX MICROSCOPIC Routine 11/17/2024 6:11 PM CDT EXTRA TUBE (GREEN) Routine 11/17/2024 6: 05 PM CDT EXTRA TUBE Routine 11/17/2024 6:05 PM CDT KETONES/BETA HYDROXYBUTYRATE Routine 11/17/2024 6:05 PM CDT EKG 12-LEAD Routine 11/17/2024 4:07 PM CDT XR CHEST PA OR AP 1 VW Routine 3:46 PM CDT TROPONIN Routine 11/17/2024 3:25 PM CDT LIPID PANEL Routine 11/17/2024 3:25 PM CDT COMPREHENSIVE METABOLIC PANEL Stat 11/17/2024 3:25 PM CDT LACTIC ACID Stat 11/17/2024 3:25 PM CDT CBC WITH DIFFERENTIAL Stat 11/17/2024 3:25 PM CDT HEMOGLOBIN A1C Routine 11/17/2024 3:25 PM CDT UNFRACTIONATED HEPARIN ACTIVITY Routine 11/17/2024 3:25 PM CDT PTT Routine 11/17/2024 3:25 PM CDT ECHOCARDIOGRAM W/ CONTRAST AGENT Routine 11/17/2024 3:13 PM CDT LATRINE CLEANER EVALUATE AND TREAT Routine 2:59 PM CDT RT ASSESS AND TREAT Routine 11/17/2024 2 :59 PM CDT POC GLUCOSE Routine 11/17/2024 2:36 PM CDT X-RAY PRIOR STUDY Routine 11/17/2024 8:[address] PRIOR STUDY Routine 11/17/2024 8:[address] PRIOR STUDY Routine 11/17/2024 7:[address] PRIOR STUDY Routine 11/16/2024 10:05 PM CDT from Last 3 Months Results * (ABNORMAL) CBC WITH DIFFERENTIAL (11/19/2024 5:39 AM CDT) Only the most recent of3 resultswithin the time period is included. Pathologist [facility] WBC 5.7 4.0 - 9.8 K/uL 11/19/2024 6:34 AM CDT [facility] RBC 4.17 3.90 - 4.90 M/uL 11/19/2024 6:34 AM CDT [facility] HEMOGLOBIN 9.9(L) 11.8 - 14.8 g/dL 11/19/2024 6:34 AM CDT [facility] HEMATOCRIT 33.3(L) 35.5 - 44.0 % 11/19/2024 6:34 AM CDT [facility] MCV 79.9(L) 82.0 - 99.0 fL 11/19/2024 6:34 AM CDT [facility] MCH 23.7(L) 27.2 - 32.6 pg 11/19/2024 6:34 AM CDT [facility] MCHC 29.7(L) 31.5 - 35.5 g/dL 11/19/2024 6:34 AM CDT [facility] RDW 18.6(H) 11.5 - 14.5 % 11/19/2024 6:34 AM CDT [facility] RDW-STDEV 54.0(H) 37.1 - 48.7 fL 11/19/2024 6:34 AM CDT [facility] PLATELETS 182 140 - 350 K/uL 11/19/2024 6:34 AM CDT [facility] MPV 9.6 9.3 - 12.4 fL 11/19/2024 6:34 AM CDT [facility] NEUTROPHILS 72 % 11/19/2024 6:34 AM CDT [facility] LYMPHOCYTES 15 % 11/19/2024 6:34 AM CDT [facility] MONOCYTES 9 % 11/19/2024 6:34 AM CDT [facility] SERVICES [facility] EOSINOPHILS 2 % 11/19/2024 6:34 AM CDT [facility] BASOPHILS 1 % 11/19/2024 6:34 AM CDT [facility] IMMATURE GRANULOCYTES 2 % 11/19/2024 6:34 AM CDT [facility] Comment:IG (Immature Granulo cyte) count includes Metamyelocytes, Myelocytes, and Promyelocytes NEUTROPHIL ABSOLUTE 4.12 1.90 - 7.00 K/uL 11/19/2024 6:34 AM CDT [facility] LYMPHOCYTE ABSOLUTE 0.84 0.70 - 4.50 K/uL 11/19/2024 6:34 AM CDT [facility] MONOCYTE ABSOLUTE 0.53 0.10 - 1.30 K/uL 11/19/2024 6:34 AM CDT [facility] EOSINOPHIL ABSOLUTE 0.11 0.00 - 0.70 K/uL 11/19/2024 6:34 AM CDT [facility] BASOPHILS ABSOLUTE 0.04 0.00 - 0.20 K/uL 11/19/2024 6:34 AM CDT [facility] IMMATURE GRANULOCYTES ABSOLUTE 0.09(H) 0.00 - 0.03 K/uL 11/19/2024 6:34 AM CDT [facility] Blood Venipuncture / Unknown 11/19/2024 5:39 AM CDT 11/19/2024 5:46 AM CDT Grady Barrett NP HEMATOLOGY ORDERABLES Final R esult [facility] CLIA# [id number] [place] [address] * (ABNORMAL) PTT (11/19/2024 5:39 AM CDT) Only the most recent of6 resultswithin the time period is included. PTT 59.8(H) 23.1 - 37.1 seconds 11/19/2024 6:12 AM CDT [facility] Blood Venipuncture / Unknown 11/19/2024 5:39 AM CDT 11/19/2024 5:46 AM CDT Mauro Fuentes MD HEMATOLOGY ORDERABLE S Final Result Performing Organization Address [facility]/ZIP Co de Phone Number [facility]# [id number] [address] [place] [address] * PHOSPHORUS (11/19/2024 5:39 AM CDT) Only the most recent of2 resultswithin the time period is included. PHOSPHORUS 2.5 2.5 - 4.5 mg/dL 11/19/2024 6:19 AM CDT [facility] Blood Venipuncture / Unknown 11/19/2024 5:39 AM CDT 11/19/2024 5:49 AM CDT Grady Barrett HAND CIGAR MAKER CHEMISTRY ORDERABLES Final Re sult Performing Organization Address [facility] de Phone Number [facility]# [id number] [place] [address] * MAGNESIUM LEVEL (11/19/2024 5:39 AM CDT) Only the most recent of2 resultswithin the time period is included. MAGNESIUM 1.7 1.6 - 2.6 mg/dL 11/19/2024 6:19 AM CDT [facility] Blood Venipuncture / Unknown 11/19/2024 5:39 AM CDT 11/19/2024 5:49 AM CDT Grady Barrett HAND CIGAR MAKER CHEMISTRY ORDERABLES Final Re sult Performing Organization Address City/[facility] Co de Phone Number [facility]# [id number] [place] [address] * (ABNORMAL) BASIC METABOLIC PANEL (11/19/2024 5:39 AM CDT) Only the most recent of2 resultswithin the time period is included. SODIUM 139 136 - 145 mmol/L 11/19/2024 6:19 AM [facility] POTASSIUM 3.5 3.4 - 5.1 mmol/L 11/19/2024 6:19 AM [facility] CHLORIDE 106 98 - 107 mmol/L 11/19/2024 6:19 AM [facility] CO2 17(L) 22 - 29 mmol/L 11/19/2024 6:19 AM [facility] CALCIUM 8.2(L) 8.6 - 10.4 mg/dL 11/19/2024 6:19 AM [facility] BUN 4(L) 6 - 20 mg/dL 11/19/2024 6:19 AM [facility] CREATININE 0.76 0.51 - 0.95 mg/dL 11/19/2024 6:19 AM [facility] GLUCOSE 139(H) 74 - 99 mg/dL 11/19/2024 6:19 AM [facility] GFR >60 >=60 mL/min/1.7 3 sq meter 11/19/2024 6:19 AM [facility] Comment:eGFR calculated with 2020 CKD-EPI equation. Vegetarian diet, extremely high or low muscle mass, and may affect results. Cystatin C with Glomerular Filtration Rate is a suitable alternative for these patients. ANION GAP 16 8 - 16 mmol/L 11/19/2024 6:19 AM [facility] Blood Venipuncture / Unknown 11/19/2024 5:39 AM CDT 11/19/2024 5:49 AM CDT Grady Barrett NP CHEMISTRY ORDERABLES Final Re sult [facility] CLIA# [id number] [address] [place] [address] * (ABNORMAL) POC GLUCOSE (11/18/2024 8:44 PM CDT) Only the most recent of7 resultswithin the time period is included. GLUCOSE POC 130(H) 74 - 99 mg/dL 11/18/2024 8:44 PM CDT [facility] POINT OF CARE SPECIMEN SOURCE, GLUCOSE POC Whole Blood 11/18/2024 8:44 PM CDT [facility] POINT OF CARE Blood, whole 11/18/2024 8:44 PM CDT 11/18/2024 8:51 PM CDT us Mauro Fuentes MD POINT OF CARE TESTIN G Final Result [facility] POINT OF CARE CLIA # [id number] [address] [place] [address] * EKG 12-LEAD (11/18/2024 8:04 PM CDT) Only the most recent of3 resultswithin the time period is included. 11/18/2024 8:04 PM CDT Narrative INTERFACE SYSTEM - 11/18/2024 10:37 [place] [address] Test Date: 2024-11-18 Pat Name: JUNE FAUSTIN Department: 98 Room: [address] [place] [address] Gender: Female Ssrs Report Developer: [email or web address] : 1965 Requested By: PACO SALAS Order Number: [id number] Reading MD: Dirk Carter Measurements Intervals Candor Rate: 76 P: 19 ME: 154 QRS: -20 QRSD: 124 T: 22 QT: 392 QTc: 441 Interpretive Statements Normal sinus rhythm Right bundle branch block Abnormal ECG Compared to ECG 11/18/2024 10:18:11 Right bundle-branch block now present Sinus rhythm replaced Atrial fibrillation Electronically Signed On 11-18-2024 22:37:47 CDT by Dirk Carter Procedure Note Dirk Carter MD - 11/18/2024 [facility] [id number] [place] [address] Test Date: 2024-11-18 Pat Name: JUNE FAUSTIN Department: 98 Room: 3730 01 Gender: Female Ssrs Report Developer: MATHIEU : 1965 Requested By: PACO SALAS Order Number: [id number] Reading MD: Dirk Carter Measurements Intervals Candor Rate: 76 P: 19 ME: 154 QRS: -20 QRSD: 124 T: 22 QT: 392 QTc: 441 Interpretive Statements Normal sinus rhythm Right bundle branch block Abnormal ECG Compared to ECG 11/18/2024 10:18:11 Right bundle-branch block now present Sinus rhythm replaced Atrial fibrillation Electronically Signed On 11-18-2024 22:37:47 CDT by Dirk Carter us Mauro Fuentes MD ECG ORDERABLES Elaine l Result INTERFACE SYSTEM Refer to clinic/hospital department * (ABNORMAL) IRON, TIBC, AND PERCENT SATURATION (11/18/2024 5:51 AM CDT) IRON 31(L) 37 - 145 ug/dL 11/18/2024 8:24 AM CDT [facility] TIBC 196(L) 265 - 497 ug/dL 11/18/2024 8:24 AM CDT [facility] IRON % SATURATION 16(L) 20 - 55 % 11/18/2024 8:24 AM CDT [facility] TRANSFERRIN 154(L) 200 - 360 mg/dL 11/18/2024 8:24 AM CDT [facility] Blood Venipuncture / Unknown 11/18/2024 5:51 AM CDT 11/18/2024 6:00 AM CDT us Mauro Fuentes MD CHEMISTRY ORDERABLES Final Result [facility] CLIA# [id number] [address] [place] [address] * TSH (11/18/2024 5:51 AM CDT) TSH 1.19 0.27 - 4.20 uIU/mL 11/18/2024 11:11 AM CDT [facility] Blood Venipuncture / Unknown 11/18/2024 5:51 AM CDT 11/18/2024 6:00 AM CDT Festus Bo MD CHEMISTRY ORDERABLES Final Re sult [facility] CLIA# [id number] [place] [address] * US LOW EXT JEO DUPLEX COMP BILAT (11/17/2024 11:13 PM CDT) Anatomical Region Laterality Modality Lower Extremity Ultrasound 11/17/2024 11:1 3 PM CDT Impressions 11/17/2024 11:28 PM CDT IMPRESSION: 1. Thrombus in the right common femoral vein that is incompletely occlusive. INCIDENTAL FINDINGS: None. DICTATION LOCATION: Location 7 - [facility] Narrative 11/17/2024 11:28 PM CDT Duplex imaging [...] extremity are otherwise free of intraluminal thrombus. us Grady Barrett NP US ORDERABLES Edited Result - Final * (ABNORMAL) UNFRACTIONATED HEPARIN MONITORING (11/17/2024 10:01 PM CDT) Only the most recent of2 resultswithin the time period is included. ANTI-XA UNFRAC HEP 0.91(HH) See Interpreta tion. IU/mL 11/17/2024 11:16 PM CDT [facility] Blood Venipuncture / Unknown 11/17/2024 10:01 PM CDT 11/17/2024 10:17 PM CDT Narrative [facility] - 11/17/2024 11:16 PM CDT Unfractionated Heparin Therapeutic Range: 0.30-0.70 IU/ml Refer to pharmacy adult heparin protocol for further recommendation. The reference range for this test is specific to the anticoagulant and is not appropriate for monitoring patients on a DOAC protocol. us Stone Mahajan MD HEMATOLOGY ORDERABLE S Final Result Performing Organization Address [facility] Co de Phone Number [facility] CLIA# [id number] [place] [address] * EXTRA TUBE (URINE OSBORN) (11/17/2024 6:11 PM CDT) Urine URINE SPECIMEN OBTAINED BY CLEAN CATCH PROCEDURE / Unknown Collection / Unknown 11/17/2024 6:11 PM CDT 11/17/2024 6:15 PM CDT us Grady Barrett NP URINE ORDERABLES Final Result Performing Organization Address [facility] Co de Phone Number [facility] CLIA# [id number] [place] [address] * EXTRA TUBE (URINE CONTAINER) (11/17/2024 6:11 PM CDT) Urine URINE SPECIMEN OBTAINED BY CLEAN CATCH PROCEDURE / Unknown Collection / Unknown 11/17/2024 6:11 PM CDT 11/17/2024 6:15 PM CDT us Stone Mahajan MD URINE ORDERABLES Fin al Result Performing Organization Address [facility]/ZIP Co de Phone Number [facility] CLIA# [id number] [place] [address] * (ABNORMAL) URINALYSIS WITH REFLEX MICROSCOPIC (11/17/2024 6:11 PM CDT) COLOR UA Yellow Pale to Dark Yellow 11/17/2024 6:35 PM CDT [facility] CLARITY UA Clear Clear 11/17/2024 6:35 PM CDT [facility] SPECIFIC GRAVITY UA >1.035(H) 1.003 - 1.035 11/17/2024 6:35 PM CDT [facility] PH UA 5.0 5.0 - 8.0 11/17/2024 6:35 PM CDT [facility] LEUKOCYTE ESTERASE UA 2+(A) Negative 11/17/2024 6:35 PM CDT [facility] NITRITE UA Negative Negative 11/17/2024 6:35 PM CDT [facility] PROTEIN UA Negative Negative 11/17/2024 6:35 PM CDT [facility] GLUCOSE UA 2+(A) Negative 11/17/2024 6:35 PM CDT [facility] KETONES UA Negative Negative 11/17/2024 6:35 PM CDT [facility] UROBILINOGEN UA Normal <2.0 mg/dL 6:35 PM CDT [facility] BILIRUBIN UA Negative Negative 11/17/2024 6:35 PM CDT [facility] BLOOD UA 1+(A) Negative 11/17/2024 6:35 PM CDT [facility] WBC UA 3-5(A) 0 - 2 /hpf 11/17/2024 6:35 PM CDT [facility] RBC UA 3-5(A) 0 - 2 /hpf 11/17/2024 6:35 PM CDT [facility] BACTERIA UA 1+(A) Negative /hpf 11/17/2024 6:35 PM CDT [facility] EPITHELIAL CELLS, URINE 0-5 0 - 5 /hpf 11/17/2024 6:35 PM CDT [facility] HYALINE CAST None Seen None Seen, 0-2 /lpf 11/17/2024 6:35 PM CDT [facility] Urine URINE SPECIMEN OBTAINED BY CLEAN CATCH PROCEDURE / Unknown Collection / Unknown 11/17/2024 6:11 PM CDT 11/17/2024 6:15 PM CDT Grady Barrett NP URINE ORDERABLES Final Result [facility] CLIA# [id number] [place] [address] * EXTRA TUBE (GREEN) (11/17/2024 6:05 PM CDT) Blood Venipuncture / Unknown 11/17/2024 6:05 PM CDT 11/17/2024 6:06 PM CDT Stone Mahajan MD CHEMISTRY ORDERABLES Final Result Performing Organization Address City/[facility]/ZIP Co de Phone Number [facility]# [id number] [place] [address] * KETONES/BETA HYDROXYBUTYRATE (11/17/2024 6:05 PM CDT) BETA HYDROXYBUTYRATE 0.1 <0.5 mmol/L 11/17/2024 6:11 PM CDT [facility] Blood Venipuncture / Unknown 11/17/2024 6:05 PM CDT 11/17/2024 6:05 PM CDT Stone Mahajan MD CHEMISTRY ORDERABLES Final Result [facility]# [id number] [place] [address] * XR CHEST PA OR AP 1 [...] 1. Bibasilar atelectasis. DICTATION LOCATION: Location 4 us Grady Barrett NP DIAGNOSTIC IMAGING ORDERABLES Final Result * LACTIC ACID (11/17/2024 3:25 PM CDT) LACTIC ACID 1.1 <=2.0 mmol/L 11/17/2024 4:04 PM CDT [facility] [email or web address] [facility] Blood Venipuncture / Unknown 11/17/2024 3:25 PM CDT 11/17/2024 3:36 PM CDT us Grady Barrett NP CHEMISTRY ORDERABLES Final Re sult [facility]# [id number] [place] [address] * TROPONIN (11/17/2024 3:25 PM CDT) [facility] TROPONIN T, 5TH GEN <6 <=10 ng/L 11/17/2024 5:44 PM CDT [facility] Blood Venipuncture / Unknown 11/17/2024 3:25 PM CDT 11/17/2024 3:36 PM CDT [facility] - 11/17/2024 5:44 PM CDT Troponin Undetectable Stone Mahajan MD CHEMISTRY ORDERABLES Final Result Performing Organization Address [facility] Co de Phone Number [facility]# [id number] [place] [address] * (ABNORMAL) HEMOGLOBIN A1C (11/17/2024 3:25 PM CDT) [facility] HEMOGLOBIN A1C 11.1(H) <=5.6 % 11/17/2024 5:28 PM CDT [facility] EST. AVG GLUCOSE, A1C 272 mg/dL 11/17/2024 5:28 PM CDT [facility] Blood Venipuncture / Unknown 11/17/2024 3:25 PM CDT 11/17/2024 3:33 PM CDT [facility] - 11/17/2024 5:28 PM CDT HGB A1C INTERPRETATION NORMAL: <5.7% PRE-DIABETES: 5.7 - 6.4% DIABETES: 6.5% OR GREATER Grady Barrett NP CHEMISTRY ORDERABLES Final Re sult Performing Organization Address City/[facility]/ZIP Co de Phone Number [facility]# [id number] [place] [address] * (ABNORMAL) LIPID PANEL (11/17/2024 3:25 PM CDT) CHOLESTEROL 130 <200 mg/dL 11/17/2024 5:26 PM CDT [facility] TRIGLYCERIDE 187(H) <150 mg/dL 11/17/2024 5:26 PM CDT [facility] HDL 42 40 - 59 mg/dL 11/17/2024 5:26 PM CDT [facility] LDL CALCULATED 51 <100 mg/dL 11/17/2024 5:26 PM CDT [facility] NON-HDL CHOLESTEROL 88 <130 mg/dL 11/17/2024 5:26 PM CDT [facility] Blood Venipuncture / Unknown 11/17/2024 3:25 PM CDT 11/17/2024 3:36 PM CDT Narrative [facility] - 11/17/2024 5:26 PM CDT TOTAL CHOLESTEROL [...] Stone Mahajan MD CHEMISTRY ORDERABLES Final Result [facility] CLIA# [id number] [place] [address] * (ABNORMAL) COMPREHENSIVE METABOLIC PANEL (11/17/2024 3:25 PM CDT) [facility] SODIUM 137 136 - 145 mmol/L 11/17/2024 4:03 PM [facility] POTASSIUM 3.7 3.4 - 5.1 mmol/L 11/17/2024 4:03 PM [facility] CHLORIDE 105 98 - 107 mmol/L 11/17/2024 4:03 PM [facility] CO2 19(L) 22 - 29 mmol/L 11/17/2024 4:03 PM [facility] CALCIUM 8.2(L) 8.6 - 10.4 mg/dL 11/17/2024 4:03 PM [facility] BUN 8 6 - 20 mg/dL 11/17/2024 4:03 PM [facility] CREATININE 0.86 0.51 - 0.95 mg/dL 11/17/2024 4:03 PM [facility] GLUCOSE 176(H) 74 - 99 mg/dL 11/17/2024 4:03 PM [facility] TOTAL PROTEIN 5.5(L) 6.3 - 8.7 g/dL 11/17/2024 4:03 PM [facility] ALBUMIN 2.9(L) 3.5 - 5.2 g/dL 11/17/2024 4:03 PM [facility] BILIRUBIN TOTAL 0.3 0.3 - 1.2 mg/dL 11/17/2024 4:03 PM [facility] ALKALINE PHOSPHATASE 63 40 - 150 U/L 11/17/2024 4:03 PM [facility] AST 14 0 - 33 U/L 11/17/2024 4:03 PM [facility] ALT 14 0 - 33 U/L 11/17/2024 4:03 PM [facility] GFR >60 >=60 mL/min/1.7 3 sq meter 11/17/2024 4:03 PM CDT [facility] [employer] [facility] Comment:eGFR calculated with 2020 CKD-EPI equation. Vegetarian diet, extremely high or low muscle mass, and may affect results. Cystatin C with Glomerular Filtration Rate is a suitable alternative for these patients. ANION GAP 13 8 - 16 mmol/L 11/17/2024 4:03 PM CDT [facility] Blood Venipuncture / Unknown 11/17/2024 3:25 PM CDT 11/17/2024 3:36 PM CDT Grady Barrett HAND [employer] CHEMISTRY ORDERABLES Final Re sult [facility] [employer] [facility] CLIA# [id number] [place] [address] * ECHOCARDIOGRAM W/ CONTRAST AGENT (11/17/2024 3:13 PM CDT) EJECTION FRACTION 70 INTERFACE SYSTEM 11/17/2024 2:40 PM CDT Narrative INTERFACE SYSTEM - 11/17/2024 4:14 PM CDT Transthoracic Echocardiogram Patient: June Faustin Study ID: [id number] Gender: F : 1965 Age: 59 Race: CAU Height 165.1cm Study Date: 11/17/2024 Weight: 67.1kg Access. #: [id number] BP: 122 / 76 *Referring Physician:* Grady Barrett *Ordering Physician:* Grady Barrett *Flight Operation Coordinator:* SKY Gore social worker aide: Nurse: Indications: Acute PE. History: PMH: No [...] values inside specified reference range. Procedure data: [facility] No prior study was available for comparison. [...] Prepared and Electronically Authenticated Filiberto Mckeon M.D. [id number]:49 Procedure Note Filiberto Mckeon MD - 11/17/2024 Transthoracic Echocardiogram Patient: June Faustin Study ID: [id number] Gender: F : 1965 Age: 59 Race: MEAG[place] Height 165.1cm Study Date: 11/17/2024 Weight: 67.1kg Access. #: [id number] BP: 122 / 76 *Referring Physician:* Grady Barrett *Ordering Physician:* Grady Barrett *Flight Operation Coordinator:SKY Rodriguez social worker aide: Nurse: Indications: Acute PE. History: PMH: No [...] values inside specified reference range. Procedure data: [facility] No prior study was available for comparison. [...] Prepared and Electronically Authenticated Filiberto Mckeon M.D. [id number]:14:49 us Grady Barrett NP US ORDERABLES Final Result INTERFACE SYSTEM Refer to clinic/hospital department * XR PRIOR STUDY (11/17/2024 8:35 AM CDT) [facility] - 11/17/2024 4:00 PM CDT This exam was auto finalized to allow images to be scanned to PACS. External Provider [facility] DIAGNOSTIC IMAGING ORDERA BLES Final Result Performing Organization Address [facility] de Phone Number [facility] CLIA # [id number] [place] [address] * CT PRIOR STUDY (11/17/2024 8:30 AM CDT) Only the most recent of3 resultswithin the time period is included. [facility] - 11/17/2024 3:56 PM CDT This exam was auto finalized to allow images to be scanned to PACS. External Provider [facility] CT ORDERABLES Final Res ult Performing Organization Address [facility] de Phone Number [facility] CLIA # [id number] [place] [address] from Last 3 Months Additional Health Concerns Infection Onset Date Last Indicated Resolved Time R/O GI Pathogen 11/18/2024 11/19/2024 Insurance [place] Advance Directives For more information, please contact: [phone] * Full Code (Latest Code Status on File) Date Activated Date Inactivated Comments 11/17/2024 2:59 PM
== END 2024-11-17 12:15 | disposition short-term general hospital (02) ==
LOC: CHSED 11-17 00:03 → CHS2ND 11-17 07:50
PROVIDERS: Nurse Practitioner Family; Admitting Provider Internal Medicine; Emergency Provider Emergency Medicine; Visit Provider Internal Medicine
DX: I26.99 Other pulmonary embolism without acute cor pulmonale (principal); K52.9 Noninfective gastroenteritis and colitis, unspecified; N39.0 Urinary tract infection, site not specified; E11.9 Type 2 diabetes mellitus without complications; I69.351 Hemiplegia and hemiparesis following cerebral infarction affecting right dominant side; J44.9 Chronic obstructive pulmonary disease, unspecified; M79.10 Myalgia, unspecified site; F32.A Depression, unspecified; Z20.822 Contact with and (suspected) exposure to COVID-19; Z87.891 Personal history of nicotine dependence; Z79.51 Long term (current) use of inhaled steroids; Z79.52 Long term (current) use of systemic steroids; Z79.84 Long term (current) use of oral hypoglycemic drugs; Z79.899 Other long term (current) drug therapy
CPT/HCPCS: 36415; 70450; 71260; 71275; 73030; 74177; 80053; 81001; 82948; 83036; 83605; 83690; 83735; 84484; 85025; 85380; 85610; 85730; 86140; 87040; 87086; 87637; 93005; 96361; 96365; 96367; 96372; 96375; 96376; 99285; A9270; G0378; G0379; J0696; J1171; J1644; J1650; J2405; J2543; J3475; J7030; Q9967